=== PATIENT | male | born 1970 | race Caucasian/White ===

== ENCOUNTER 2022-08-18 11:45 | Outpatient (CLI) | payer BC, SELFPAY | END 2022-08-18 11:46 | disposition home or self-care (01) | PROVIDERS: PCP Family Medicine; Visit Provider Internal Medicine | DX: Z12.11 Encounter for screening for malignant neoplasm of colon (principal); K64.8 Other hemorrhoids; K57.30 Diverticulosis of large intestine without perforation or abscess without bleeding | CPT/HCPCS: 45378; J2250; J3010 ==

== ENCOUNTER 2023-02-23 23:02 | Emergency (ER) | payer BC, SELFPAY ==
[2023-02-23 23:09] VITALS: BP 163/84; PULSE 73; RESP 20; TEMP 35.6; O2SAT 98; BMI 34.2
--- NOTE | 2023-02-23 23:11 | CRLHL7_ITS ---
For Patients: As a result of the Century Cures Act, medical imaging exams and procedure reports are released immediately into your electronic medical record. You may view this report before your referring provider. If you have questions, please contact your health care provider. INDICATION: Fall, altered mental status. TECHNIQUE: CT head without contrast. Permanently recorded images are archived. COMPARISON: Head CT 04/23/2019. FINDINGS: Interval postsurgical changes prior right frontal craniotomy. 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 Right parietal kitty hole. No acute intracranial hemorrhage, mass effect, or midline shift. The frankel-white matter differentiation is maintained. No abnormal extra-axial fluid collection. Thinning of the ocular lenses bilaterally. The paranasal sinuses and mastoid air cells are clear. No acute skull fracture. IMPRESSION: No evidence of an acute intracranial abnormality. Please note that all CT scans at this facility use dose modulation, iterative reconstruction, and/or weight-based dosing when appropriate to reduce radiation dose to as low as reasonably achievable. Dictated by Ignacio Quan MD @ 02/23/2023 11:58:57 PM (Electronically Signed)
--- NOTE | 2023-02-23 23:11 | CRLHL7_ITS ---
For Patients: As a result of the Cures Act, medical imaging exams and procedure reports are released immediately into your electronic medical record. You may view this report before your referring provider. If you have questions, please contact your health care provider. INDICATION: Fall. TECHNIQUE: CT cervical spine without contrast. COMPARISON: None. FINDINGS: Vertebrae: Straightening of the cervical lordosis. There are no fractures or suspicious bony lesions. Discs and facet joints: Mild degenerative disc changes at C6-7. The facet joints are unremarkable. Extraspinal findings: Prevertebral soft tissues, visualized airway, and visualized lungs are unremarkable. IMPRESSION: Straightening of the cervical lordosis. No acute bony abnormality Please note that all CT scans at this facility use dose modulation, iterative reconstruction, and/or weight-based dosing when appropriate to reduce radiation dose to as low as reasonably achievable. Dictated by Ignacio Quan MD @ 02/24/2023 12:01:42 AM (Electronically Signed)
[2023-02-23 23:25] LABS: Basophils Absolute Auto 0.04 K/uL (0.00-0.30); Basophils Percent Auto 0.5 % (0.0-3.0); Eosinophils Absolute Auto 0.34 K/uL (0.00-0.50); Eosinophils Percent Auto 3.9 % (0.0-7.0); Hematocrit 45.1 % (37.0-53.0); Hemoglobin* 14.3 gm/dL (13.5-17.5); Immature Granulocytes Abs Auto 0.04 K/uL (0.00-0.30); Immature Granulocytes Pct Auto 0.5 %; Lymphocytes Absolute Auto 3.43 K/uL (0.90-2.90); Lymphocytes Percent Auto 39.8 % (20-44); Mean Corpuscular HGB Conc 32 gm/dL (32-36); Mean Corpuscular Hemoglobin 26 pg (26-34); Mean Corpuscular Volume 83 fL (80-100); Monocytes Percent Auto 5.9 % (0.0-11.0); Neutrophils Absolute Auto 4.25 K/uL (1.7-7.0); Neutrophils Percent Auto 49.4 % (42.0-72.0); Platelet Count* 256 K/uL (140-440); RDW Coefficient of Variation % 14.4 % (11.5-15.5); Red Blood Count 5.43 m/uL (4.30-5.90); White Blood Count* 8.61 K/uL (4.50-11.00)
[2023-02-23 23:27] LABS: Slide Review Reflex No
--- OUTSIDE RECORDS SUMMARY | 2023-02-23 23:31 | XMS_ITS | Continuity of Care Document ---
Author Name Unknown Organization [facility] Address [address] [address] [place] [address] Phone Care Team Providers Care Fraud Analyst Name Role Phone Daryn HERMAN, Emma Unavailable [...] on Encounter Subsqt Hosp-da E&m Minr Compl [facility], [address] [address], [place], [place], [id number], [place] tel:[phone] [facility] No Information 0 Daryn Carter. [address] [place] [address], [id number] , [place]. tel:[phone] Referring Provider: Shun Byrnes, [address] [place], [address]. tel:[phone] [facility] [place], [address] [address], [place], [place], [id number], [place] tel:[phone] [facility] No Information 0 Anastacia Ugarte. [address] [place] [address], [id number] , [place]. [phone] Referring Provider: Shun Byrnes, [address] [place], [address]. tel:[phone] Init Inpt Cons New/est Mod-hi [facility], [address] [address], [place], [place], [id number], [place] tel:[phone] [facility] No Information 0 Ama Mendez . [address] [facility], [facility] [address], [place], [place], [id number] , [place]. tel:[phone] Referring Provider: Shun Blum MD C, [address] , [place], [address]. tel:[phone] Family History Family Member Type Diagnosis Age At Onset No Information Payers Payer name Insurance type Covered alliance party ID Authormariannea margotleticia(s) Blue Cross [facility] [id number] Social History Type Description Quantity Date Captured [...]
[2023-02-23 23:32] VITALS: PULSE 63; O2SAT 96
[2023-02-23 23:42] LABS: Acetaminophen* < 10.0 ug/mL (10.0-30.0); Ethanol* < 0.01 % (0.01-0.03); Salicylate* < 1.0 mg/dL (1.0-10)
[2023-02-23 23:45] VITALS: PULSE 60; O2SAT 97
[2023-02-24] VITALS (8 sets, daily range): BP systolic 127; BP diastolic 90; PULSE 54–63; RESP 18; TEMP 36.1; O2SAT 94–98
[2023-02-24 00:17] LABS: Albumin* 4.1 g/dL (3.3-5.0); Chloride* 106 mmol/L (96-114); Potassium* 3.4 mmol/L (3.6-5.1); Sodium* 141 mmol/L (135-149)
[2023-02-24 00:20] LABS: Alanine Aminotransferase* 27 U/L (4-50); Alkaline Phosphatase* 36 U/L (40-150); Aspartate Amino Transferase* 31 U/L (12-35); Bilirubin Total* 1.2 mg/dL (0.1-1.5); Blood Urea Nitrogen* 8 mg/dL (7-30); Carbon Dioxide* 26 mmol/L (20-32); Creatinine* 1.3 mg/dL (0.5-1.5); Est. Creatinine Clearance* 81.61; Estimated Glomerular Filt Rate 66 ml/min; Glucose* 132 mg/dL (60-115); Total Protein* 6.9 g/dL (6.0-8.3)
[2023-02-24] MEDS: KETOROLAC 30 MG/ML inj IVP (00:20)
[2023-02-24] MEDS: 0.9 % SODIUM CHLORIDE 1000 ml 1,000 ML IV (00:20)
[2023-02-24 00:21] LABS: Calcium* 8.5 mg/dL (8.4-10.6)
--- NOTE | 2023-02-24 00:25 | ED.AMS ---
HPI - Altered Mental Status General Chief Complaint: Altered Mental Status Stated Complaint: Altered Mental Status Time Seen by Provider: 02/23/23 23:04 History of Present Illness HPI narrative: Patient is a 52-year-old gentleman with history of pituitary resection with cerebral shunt placement now removed who presents with acute delirium. Patient who has had a similar episode last year [facility] the [facility] today with his . 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 He seemed to be walking around without any difficulty or focal neurologic symptoms but did not seem to know who any but he was. He seemed very frightened by this and she called for an ambulance. Patient was found have no focal neurologic symptoms by EMS was brought in with extreme confusion. The confusion has largely resolved but the patient is left with a bitemporal headache which is 6/10 and dull. He has had no nausea no vomiting no fevers no chills he has not been drinking alcohol using any drugs. He has no other significant symptoms. Related Data Previous Rx's Medication Instructions Recorded desmopressin 0.1 mg tablet 0.05 mg (1/2 x 0.1 mg) PO .HS #45 07/18/22 tabs hydrocortisone 10 mg tablet See Rx Instructions PO .ud #270 07/18/22 tabs levothyroxine 137 mcg tablet 137 mcg PO QDAY #90 tabs 07/18/22 testosterone cypionate 200 mg/mL 150 mg (0.75 mL) IM Q2W #6 mL 07/18/22 intramuscular oil topiramate 25 mg tablet 25 mg PO BID #180 tabs 07/18/22 trazodone 50 mg tablet 50 mg PO QHS PRN insomnia #30 tabs 07/18/22 Allergies Allergy/AdvReac Type Severity Reaction Status Date / Time sumatriptan [From Imitrex] Allergy Severe horribly Verified 11/07/22 13:08 sick Review of Systems Status of ROS: Reports: 10 or more systems reviewed and unremarkable except as noted in History and below [facility] Medical History Hypertension ?I10 - Essential (primary) hypertension (ICD-10) Surgical History S/P rotator cuff surgery ?Z98.890 - Other specified postprocedural states (ICD-10) S/P [facility] shunt ?Z98.2 - Presence of cerebrospinal fluid drainage device (ICD-10) S/P cholecystectomy ?Z90.49 - Acquired absence of other specified parts of digestive tract (ICD-10) S/P cataract extraction ?Z98.49 - Cataract extraction status, unspecified eye (ICD-10) 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 EYES: No scleral icterus. LYMPH: No supraclavicular or cervical lymphadenopathy. SKIN: Visible skin seen during exam normal or with benign process only. EXT: No dependent lower extremity pedal edema. HEART: Regular rate and rhythm with no murmurs, rubs, or gallops. LUNGS: Clear to auscultation bilaterally with no crackles or wheezes. ABD: Soft, non tender, non distended. PSYCH: Good eye contact, speech is not pressured. Neurologic cranial nerves 2-12 grossly intact. Patient appears to be completely oriented at this time. Const: Vital Signs, click to edit/add: Vital Signs - 24 hr 02/23/23 23:09 02/23/23 23:32 02/23/23 23:45 Temperature 96.0 F L Pulse Rate 63 60 Pulse Rate [Left P ulse Oximeter] 73 Respiratory Rate 20 Blood Pressure [Le ft Upper Arm] 163/84 H Pulse Oximetry 98 96 97 Oxygen Delivery Me thod Room Air Room Air 02/24/23 00:00 02/24/23 00:15 02/24/23 00:30 Temperature Pulse Rate 63 61 Pulse Rate [Left P ulse Oximeter] Respiratory Rate Blood Pressure [Le ft Upper Arm] Pulse Oximetry 94 97 98 Oxygen Delivery Me thod 02/24/23 00:46 02/24/23 01:00 02/24/23 01:15 Temperature Pulse Rate 60 54 L 55 L Pulse Rate [Left P ulse Oximeter] Respiratory Rate Blood Pressure [Le ft Upper Arm] Pulse Oximetry 98 98 96 Oxygen Delivery Me thod Course Course Hospital Course: Patient seen and examined. CT of the head and neck done acutely showed no changes injuries or bleeding othe than previous surgical changes. CBC CMP UA Tylenol level salicylate level drug screen ETOH pending Vital Signs Vital signs: Initial Vital Signs Temperature 96.0 F L 02/23/23 23:09 Temperature Source Temporal Artery Scan 02/23/23 23:09 Pulse Rate 73 02/23/23 23:09 Respiratory Rate 20 02/23/23 23:09 Blood Pressure 163/84 H 02/23/23 23:09 Blood Pressure Mean 110 H 02/23/23 23:09 Blood Pressure Position Semi-Fowlers 02/23/23 23:09 Pulse Oximetry 98 02/23/23 23:09 Oxygen Delivery Method Room Air 02/23/23 23:09 Vital Signs Temperature 96.0 F L 02/23/23 23:09 Pulse Rate 73 02/23/23 23:09 Respiratory Rate 20 02/23/23 23:09 Blood Pressure 163/84 H 02/23/23 23:09 Pulse Oximetry 98 02/23/23 23:09 Oxygen Delivery Method Room Air 02/23/23 23:09 Temperature 96.0 F L 02/23/23 23:09 Pulse Rate 55 L 02/24/23 01:15 Respiratory Rate 20 02/23/23 23:09 Blood Pressure 163/84 H 02/23/23 23:09 Pulse Oximetry 96 02/24/23 01:15 Oxygen Delivery Method Room Air 02/23/23 23:32 MDM - Altered Mental Status MDM Narrative Medical decision making narrative: Patient is a 52-year-old gentleman who is status post a craniotomy in the past who presents with an acute delirium. This is not 1st time this has happened. Patient had a thorough workup in the emergency room including CT of the head and cervical spine drug toxicology Tylenol level salicylate level ETOH comprehensive metabolic panel UA CBC. He had no focal neurologic defects other than the confusion and his symptoms have resolved. At this time I have elected to release him the care of his is he is back to near normal. I did treated with normal saline and Toradol for his headache he shows no signs of meningitis. I did recommend the follow-up with his primary physician continued follow-up with his neurologist closely. Differential Diagnosis Differential diagnosis: Likely alcoholic intoxication, altered mental status, delirium, dementia, hypoglycemia, hyponatremia, subarachnoid hemorrhage and sepsis Lab Data Labs: Lab Results 02/23/23 02/23/23 Range/Units 01:11 23:11 WBC 8.61 (4.50-11.00) K/uL RBC 5.43 (4.30-5.90) m/uL Hgb 14.3 (13.5-17.5) gm/dL Hct 45.1 (37.0-53.0) % MCV 83 (80-100) fL MCH 26 (26-34) pg MCHC 32 (32-36) gm/dL RDW Coeff of [place] 14.4 (11.5-15.5) % Plt Count 256 (140-440) K/uL Neut % (Auto) 49.4 (42.0-72.0) % Lymph % (Auto) 39.8 (20-44) % [place] % (Auto) 5.9 (0.0-11.0) % Eos % (Auto) 3.9 (0.0-7.0) % Baso % (Auto) 0.5 (0.0-3.0) % Neut # (Auto) 4.25 (1.7-7.0) K/uL Lymph # (Auto) 3.43 H (0.90-2.90) K/uL [place] # (Auto) 0.50 (0.00-0.90) K/UL Eos # (Auto) 0.34 (0.00-0.50) K/uL Baso # (Auto) 0.04 (0.00-0.30) K/uL Abs Immat Gran (auto) 0.04 (0.00-0.30) K/uL Imm/Tot Granulo (auto) 0.5 % Sodium 141 (135-149) mmol/L Potassium 3.4 L (3.6-5.1) mmol/L Chloride 106 (96-114) mmol/L Carbon Dioxide 26 (20-32) mmol/L BUN 8 (7-30) mg/dL Creatinine 1.3 (0.5-1.5) mg/dL Estimated Creat Clear 81.61 Estimated GFR 66 ml/min Glucose 132 H (60-115) mg/dL Calcium 8.5 (8.4-10.6) mg/dL Total Bilirubin 1.2 (0.1-1.5) mg/dL AST 31 (12-35) U/L ALT 27 (4-50) U/L Alkaline Phosphatase 36 L (40-150) U/L Total Protein 6.9 (6.0-8.3) g/dL Albumin 4.1 (3.3-5.0) g/dL Urine Color Yellow (Yellow) Urine Appearance Clear (Clear) Urine pH 5.5 (5.0-8.5) Ur Specific [place] 1.025 (1.000-1.030) Urine Protein Negative (Negative) Urine Glucose (UA) Negative (Negative) Urine Ketones Negative (Negative) Urine Blood Negative (Negative) Urine Nitrite Negative (Negative) Urine Bilirubin Negative (Negative) Urine Urobilinogen 0.2 (0.2-1.0) Ur Leukocyte Esterase Negative (Negative) Salicylates < 1.0 L (1.0-10) mg/dL Urine Opiates Screen Negative (Negative) Ur Oxycodone Screen Negative (Negative) Urine Methadone Screen Negative (Negative) Ur Propoxyphene Screen Negative (Negative) Acetaminophen < 10.0 L (10.0-30.0) ug/mL Ur Barbiturates Screen Negative (Negative) U Tricyclic Antidepress Negative (Negative) Ur Phencyclidine Scrn Negative (Negative) Ur Amphetamines Screen Negative (Negative) U Methamphetamines Scrn Negative (Negative) U Benzodiazepines Scrn Negative (Negative) Urine Cocaine Screen Negative (Negative) U Marijuana (THC) Screen Negative (Negative) Ur Drug Screen Comment See Note Ethyl Alcohol < 0.01 L (0.01-0.03) % Discharge Plan Discharge Clinical Impression: Acute delirium Patient Disposition: Home w/ Parent or Adult Condition: Stable Instructions: Acute Delirium (ED) Additional Instructions: Continue current medications Follow-up with PCP and Neurology to further investigate symptoms. Activity Level: No Restrictions Discharge Diet: Regular Prescriptions: No Action testosterone cypionate 200 mg/mL oil 150 mg IM Q2W Qty: 6 5RF Rx Instructions: 0.75 mL Q2WKS hydrocortisone 10 mg tablet See Rx Instructions PO .ud Qty: 270 3RF Rx Instructions: 2 TABS PO QAM 1 TAB IN THE AFTERNOON desmopressin 0.1 mg tablet 0.05 mg PO .HS Qty: 45 3RF levothyroxine 137 mcg tablet 137 mcg PO QDAY Qty: 90 3RF topiramate 25 mg tablet 25 mg PO BID Qty: 180 3RF trazodone 50 mg tablet 50 mg PO QHS PRN (Reason: insomnia) Qty: 30 2RF Follow Up/Referrals: [place] Blum MD [Primary Care Provider] - Stand Alone Forms: [employer] Info Instructions
[2023-02-24 01:16] LABS: Appearance Urine Clear (Clear); Bilirubin Urine Negative (Negative); Blood Urine Negative (Negative); Color Urine Yellow (Yellow); Glucose Urine Negative (Negative); Ketones Urine Negative (Negative); Leukocyte Esterase Urine Negative (Negative); Nitrite Urine Negative (Negative); Protein Urine Negative (Negative); Specific Gravity Urine 1.025 (1.000-1.030); Urobilinogen Urine 0.2 (0.2-1.0); pH Urine 5.5 (5.0-8.5)
[2023-02-24 01:27] LABS: Amphetamine Screen Urine Negative (Negative); Barbiturate Screen Urine Negative (Negative); Benzodiazepines Screen Urine Negative (Negative); Cannabinoid Screen Urine Negative (Negative); Cocaine Screen Urine Negative (Negative); Methadone Screen Urine Negative (Negative); Methamphetamines Screen Urine Negative (Negative); Opiate Screen Urine Negative (Negative); Oxycodone Screen Urine Negative (Negative); Phencyclidine Screen Urine Negative (Negative); Tricyclic Antidepressant Urine Negative (Negative)
--- NOTE | 2023-02-24 01:53 | PC.NURSE ---
patient DC accompanied by , stated understanding to DC instruction with no further questions
== END 2023-02-24 01:53 | disposition home or self-care (01) ==
PROVIDERS: Emergency Provider Internal Medicine; PCP Family Medicine
DX: R41.0 Disorientation, unspecified (principal)
CPT/HCPCS: 36415; 70450; 72125; 80053; 80143; 80179; 80306; 81003; 82077; 85025; 96374; 99283; 99284; 99285; J1885; J7030

== ENCOUNTER 2023-02-28 13:37 | Outpatient (CLI) | payer BC, SELFPAY | END 2023-02-28 13:38 | disposition home or self-care (01) | PROVIDERS: PCP Family Medicine; Visit Provider Family Medicine | DX: R51.9 Headache, unspecified (principal); M25.50 Pain in unspecified joint; E03.9 Hypothyroidism, unspecified; G89.29 Other chronic pain | CPT/HCPCS: 85651; 86039; 86140; 86431; 86618 ==

== ENCOUNTER 2024-07-29 19:56 | Emergency (ER) | payer BC, SELFPAY ==
[2024-07-29 19:58] VITALS: BP 117/68; PULSE 136; RESP 16; TEMP 36.9; O2SAT 83; O2SAT 98; BMI 31.6
--- NOTE | 2024-07-29 20:21 | ED_ITS ---
HPI - General Adult General Chief complaint: Headache/Migraine Stated complaint: Migraine, body aches/pain Time Seen by Provider: 07/29/24 20:16 History of Present Illness HPI narrative: headache starting yesterday, hx of severe headaches in the past. also has body aches, denies known sick contacts. hx of stroke seen on an MRI 2019 but was unaware, not on any blood thinners. hx of brain surgery in the past on pituitary tumor . states last time he felt no symptoms was 2 days ago. moves all extremities equally. states feeling generalized weakness. also has a cough and nausea. 53-year-old man presenting to the emergency department with concern of headache. Underlying history of pituitary adenoma with extension and 7 surgeries to deal with related problems. Does get regular headaches. This 1 is more intense. He is also feeling achy all over noting particularly variety of joints. Did have a fall yesterday and has some left hip pain but has been able to ambulate. Last head imaging was May of this year. He did have EEG testing done 2 weeks ago. Reports that earlier today tried his rizatriptan without relief. Headache is been present now about 2 days in the ?frontal lobes?. Other than intensity symptoms are consistent with usual headaches. On initial conversation he does not feel that he would need any imaging otherwise. Has had some cough. He feels nauseated. Typically would go to [facility] for migraine cocktail as they note. Sounds like this includes morphine and ketorolac and sometimes diphenhydramine.. Related Data Home Medications ?Medication ?Instructions ?Recorded ?Confirmed prednisone 20 mg tablet 20 mg PO QDAY 04/24/23 07/29/24 rizatriptan 10 mg tablet mg PO 07/29/24 Previous Rx's ?Medication ?Instructions ?Recorded semaglutide 7 mg tablet 7 mg PO QDAY #30 tabs 04/24/23 levothyroxine 137 mcg tablet 137 mcg PO QDAY #90 tabs 09/21/23 testosterone cypionate 200 mg/mL 150 mg (0.75 mL) IM Q2W #6 mL 11/13/23 intramuscular oil hydrocortisone 10 mg tablet See Rx Instructions PO .ud #270 12/28/23 tabs trazodone 50 mg tablet 50 mg PO QHS PRN insomnia #30 tabs 01/30/24 tizanidine 4 mg tablet 4 mg PO QHS PRN muscle spasticity 05/12/24 #30 tabs oseltamivir 75 mg capsule (Tamiflu) 75 mg PO BID 4 days #8 caps 07/29/24 Allergies Allergy/AdvReac Type Severity Reaction Status Date / Time sumatriptan (From Imitrex) Allergy Severe horribly Verified 02/28/23 13:16 sick Review of Systems Status of ROS: Reports: 6 or more systems reviewed and unremarkable except as noted in History and below [facility] Medical History Hypertension ?I10 - Essential (primary) hypertension (ICD-10) Surgical History 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) S/P rotator cuff surgery ?Z98.890 - Other specified postprocedural states (ICD-10) S/P [employer] shunt ?Z98.2 - Presence of cerebrospinal fluid drainage device (ICD-10) S/P cholecystectomy ?Z90.49 - Acquired absence of other specified parts of digestive tract (ICD- 10) S/P cataract extraction ?Z98.49 - Cataract extraction status, unspecified eye (ICD-10) Family History Other Diabetes Pancreatic cancer Prostate cancer Social History Smoking Status: Never smoker Do you use any of these nicotine containing products: None Second hand tobacco smoke exposure: No How often do you have a drink containing alcohol: 2-4 times a month How often do you have six or more drinks on one occasion: Never AUDIT-C Alcohol total score: 2 Non-prescribed substance use: denies use service: No Exam Narrative: Exam Narrative: Pleasant. Seems a little uncomfortable; sensitive a little to light. In a head with postoperative scars most notable in the right parietal area. Cranial nerves 2-12 look to be intact. Pupils are 3 mm and equal and appropriately reactive. Moving all extremities without apparent difficulty. Fluidly. Well- perfused. Speaking fluidly. Oropharynx looks a little sticky. Is breathing easily. Heart in elevated rate and regular rhythm. Distant. Const: Vital Signs, click to edit/add: Vital Signs - 24 hr 07/29/24 19:58 07/29/24 19:58 07/29/24 21:00 Temperature 98.4 F Pulse Rate [Pulse Oximeter] 136 H Respiratory Rate 16 Blood Pressure [Ri ght Upper Arm] 117/68 Pulse Oximetry 98 83 L 83 L Oxygen Delivery Me thod Room Air Room Air 07/29/24 23:12 07/29/24 23:14 07/29/24 23:19 Temperature 98.4 F 98.4 F 98.4 F Pulse Rate [Pulse Oximeter] 89 89 Respiratory Rate 16 16 Blood Pressure [Ri ght Upper Arm] 124/74 124/74 Pulse Oximetry 94 Oxygen Delivery Me thod Room Air Documenting provider has reviewed patient's vital signs: yes Course Vital Signs Vital signs: Initial Vital Signs Temperature 98.4 F 07/29/24 19:58 Temperature Source Oral 07/29/24 19:58 Pulse Rate 136 H 07/29/24 19:58 Respiratory Rate 16 07/29/24 19:58 Blood Pressure 117/68 07/29/24 19:58 Blood Pressure Mean 84 07/29/24 19:58 Blood Pressure Position Sitting 07/29/24 19:58 Pulse Oximetry 98 07/29/24 19:58 Oxygen Delivery Method Room Air 07/29/24 19:58 Vital Signs Temperature 98.4 F 07/29/24 19:58 Pulse Rate 136 H 07/29/24 19:58 Respiratory Rate 16 07/29/24 19:58 Blood Pressure 117/68 07/29/24 19:58 Pulse Oximetry 98 07/29/24 19:58 Oxygen Delivery Method Room Air 07/29/24 19:58 Temperature 98.4 F 07/29/24 23:19 Pulse Rate 89 07/29/24 23:19 Respiratory Rate 16 07/29/24 23:19 Blood Pressure 124/74 07/29/24 23:19 Pulse Oximetry 94 07/29/24 23:12 Oxygen Delivery Method Room Air 07/29/24 23:12 Medications Administered Medications: Discontinued Medications Generic Name Dose Route Start Last Admin Trade Name Freq PRN Reason Stop Dose Admin Diphenhydramine HCl 25 mg 07/29/24 20:32 07/29/24 20:45 Diphenhydramine 50 Mg/Ml Inj IVP 07/29/24 20:33 25 mg ONCE ONE Administration Sodium Chloride 1,000 mls @ 1,000 mls/hr 07/29/24 20:32 07/29/24 22:17 0.9 % Sodium Chloride 1000 Ml IV 07/29/24 21:31 Infused .Q1H ONE Infusion Ketorolac Tromethamine 30 mg 07/29/24 20:32 07/29/24 20:45 Ketorolac 30 Mg/Ml Inj IVP 07/29/24 20:33 30 mg ONCE ONE Administration Morphine Sulfate 4 mg 07/29/24 20:32 07/29/24 20:45 Morphine 4 Mg/Ml Inj IVP 07/29/24 20:33 4 mg ONCE ONE Administration Ondansetron HCl 4 mg 07/29/24 20:32 07/29/24 20:45 Ondansetron 2 Mg/Ml Inj IVP 07/29/24 20:33 4 mg ONCE ONE Administration Oseltamivir Phosphate 75 mg 07/29/24 22:47 07/29/24 22:55 Oseltamivir Phosphate 75 Mg Capsule PO 07/29/24 22:48 75 mg ONCE ONE Administration Oseltamivir Phosphate 75 mg 07/29/24 22:49 07/29/24 23:14 Oseltamivir Phosphate 75 Mg Capsule PO 07/29/24 22:50 Not Given ONCE ONE Oseltamivir Phosphate 75 mg 07/29/24 22:50 07/29/24 23:14 Oseltamivir Phosphate 75 Mg Capsule PO 07/29/24 22:51 Not Given ONCE ONE Medical Decision Making MDM Narrative Medical decision making narrative: He does not feel that imaging would be necessary at this point. He does describe a familiar headache. Will treat accordingly and screen though for possible secondary viral etiology. He seems to be describing some myalgias and arthralgia. Does not appear to be otherwise demonstrating meningeal signs. Did not have a fever. Reviewing records shows a history of diffuse arthralgias of unclear etiology. Nurse's note seems little out of it following my conversation with him. Morphine has also cause some respiratory depression. Placed on non-rebreather. Further conversation with spouse says that he had a as fall last night. Suspected syncopal event though not clear that he did actually pass out. This though is similar to presenting symptoms with pituitary mass and secondary hydrocephalus. Will add to labs and CT head though I think more likely explanation for entirety of symptoms here is still of viral etiology. CT head independently reviewed by me does not appear to show excessive ventricular size/fullness. Radiology over-read below Technique: Noncontrast CT through the head with multiplanar reformats Comparison: CT head performed 02/23/2023 and 04/23/2019 Findings: Brain: No acute hemorrhage. No acute infarct. No significant mass effect or midline shift. No gross evidence of a mass lesion or cerebral edema. Right frontotemporal gliosis. Mild chronic microvascular ischemic disease. Ventricles: Unremarkable. Ventricular caliber is similar to prior examination. Orbits, sinuses, mastoids: No acute abnormality appreciated. Calvarium and soft tissues: Postoperative changes with no acute abnormality appreciated. Impression: Chronic gliosis and postoperative calvarial changes with acute intracranial abnormality appreciated. Ventricular caliber appears similar to examination dated 02/23/2023. Labs notable than for positive influenza a. I think this is consistent with symptoms With comorbidities, history, discussed potential benefit of Tamiflu. Given initial dosing here in the emergency department. See patient discharge plan for further discussion Focus on hydration. Can take up to 800 mg of ibuprofen or up to 1000 mg of acetaminophen per dose. You are receiving a dose of Tamiflu before you leave. Take another dose starting tomorrow morning -- providing you with 2 pills because pharmacies are closed. Take the 3rd dose tomorrow evening. Medical Records Medical records reviewed: Yes I reviewed the patient's medical records Lab Data Labs: Lab Results 07/29/24 07/29/24 Range/Units 20:14 20:40 WBC 3.64 L (4.50-11.00) K/uL RBC 5.29 (4.30-5.90) m/uL Hgb 14.7 (13.5-17.5) gm/dL Hct 44.7 (37.0-53.0) % MCV 85 (80-100) fL MCH 28 (26-34) pg MCHC 33 (32-36) gm/dL RDW Coeff of [place] 14.0 (11.5-15.5) % Plt Count 183 (140-440) K/uL Neut % (Auto) 58.0 (42.0-72.0) % Lymph % (Auto) 30.5 (20-44) % [place] % (Auto) 9.9 (0.0-11.0) % Eos % (Auto) 1.1 (0.0-7.0) % Baso % (Auto) 0.5 (0.0-3.0) % Neut # (Auto) 2.10 (1.7-7.0) K/uL Lymph # (Auto) 1.10 (0.90-2.90) K/uL [place] # (Auto) 0.40 (0.00-0.90) K/UL Eos # (Auto) 0.00 (0.00-0.50) K/uL Baso # (Auto) 0.00 (0.00-0.30) K/uL Abs Immat Gran (auto) 0.00 (0.00-0.30) K/uL Imm/Tot Granulo (auto) 0.0 % Sodium 136 (135-149) mmol/L Potassium 3.1 L (3.6-5.1) mmol/L Chloride 105 (96-114) mmol/L Carbon Dioxide 23 (20-32) mmol/L Anion Gap 8 (7-15) mEq/L BUN 15 (7-30) mg/dL Creatinine 1.3 (0.5-1.5) mg/dL Estimated Creat Clear 80.68 Estimated GFR 66 ml/min Glucose 121 H (60-115) mg/dL Calcium 8.5 (8.4-10.6) mg/dL SARS-CoV-2 (PCR) Negative SARS-CoV-2 (Negative) Influenza Type A (PCR) POSITIVE PCR FLU A A (Negative) Influenza Type B (PCR) Negative PCR FLU B (Negative) RSV (PCR) Negative PCR RSV (Negative) ECG Data Attestation: I personally reviewed and interpreted this ECG as follows: (Sinus tachycardia 109) Discharge Plan Discharge Clinical Impression: Influenza A, Headache, Polyarthralgia Patient Disposition: Home w/ Parent or Adult Condition: Improved Additional Instructions: Focus on hydration. Can take up to 800 mg of ibuprofen or up to 1000 mg of acetaminophen per dose. You are receiving a dose of Tamiflu before you leave. Take another dose starting tomorrow morning -- providing you with 2 pills because pharmacies are closed. Take the 3rd dose tomorrow evening. Prescriptions: New oseltamivir [Tamiflu] 75 mg capsule 75 mg PO BID 4 Days Qty: 8 0RF No Action prednisone 20 mg tablet 20 mg PO QDAY semaglutide 7 mg tablet 7 mg PO QDAY Qty: 30 2RF rizatriptan 10 mg tablet PO levothyroxine 137 mcg tablet 137 mcg PO QDAY Qty: 90 3RF testosterone cypionate 200 mg/mL oil 150 mg IM Q2W Qty: 6 5RF Rx Instructions: 0.75 mL Q2WKS hydrocortisone 10 mg tablet See Rx Instructions PO .ud Qty: 270 2RF Rx Instructions: 2 TABS PO QAM 1 TAB IN THE AFTERNOON trazodone 50 mg tablet 50 mg PO QHS PRN (Reason: insomnia) Qty: 30 2RF tizanidine 4 mg tablet 4 mg PO QHS PRN (Reason: muscle spasticity) Qty: 30 2RF Follow Up/Referrals: Salinas Blum MD [Primary Care Provider] - Stand Alone Forms: MyHealth Info Instructions
[2024-07-29] MEDS: 0.9 % SODIUM CHLORIDE 1000 ml 1,000 ML IV (20:43)
[2024-07-29] MEDS: KETOROLAC 30 MG/ML inj IVP (20:45)
[2024-07-29] MEDS: ONDANSETRON 2 MG/ML inj 4 MG IVP (20:45)
[2024-07-29] MEDS: MORPHINE 4 MG/ML INJ IVP (20:45)
[2024-07-29] MEDS: diphenhydrAMINE 50 MG/ML inj 25 MG IVP (20:45)
[2024-07-29 21:00] VITALS: O2SAT 83
[2024-07-29 21:14] LABS: PCR FLU A POSITIVE PCR FLU A (Negative); PCR FLU B Negative PCR FLU B (Negative); PCR RSV Negative PCR RSV (Negative); SARS PCR* Negative SARS-CoV-2 (Negative)
--- NOTE | 2024-07-29 21:15 | CRLHL7_ITS ---
For Patients: As a result of the Cures Act, medical imaging exams and procedure reports are released immediately into your electronic medical record. You may view this report before your referring provider. If you have questions, please contact your health care provider. Indication: Headache Technique: Noncontrast CT through the head with multiplanar reformats Comparison: CT head performed 02/23/2023 and 04/23/2019 Findings: Brain: No acute hemorrhage. No acute infarct. No significant mass effect or midline shift. No gross evidence of a mass lesion or cerebral edema. Right frontotemporal gliosis. Mild chronic microvascular ischemic disease. Ventricles: Unremarkable. Ventricular caliber is similar to prior examination. Orbits, sinuses, mastoids: No acute abnormality appreciated. Calvarium and soft tissues: Postoperative changes with no acute abnormality appreciated. Impression: Chronic gliosis and postoperative calvarial changes with acute intracranial abnormality appreciated. Ventricular caliber appears similar to examination dated 02/23/2023. Please note that all CT scans at this facility use dose modulation, iterative reconstruction, and/or weight-based dosing when appropriate to reduce radiation dose to as low as reasonably achievable. Dictated by Alexander Escamilla MD @ 07/29/2024 10:20:53 PM (Electronically Signed)
[2024-07-29 21:27] LABS: Basophils Percent Auto 0.5 % (0.0-3.0); Eosinophils Percent Auto 1.1 % (0.0-7.0); Hematocrit 44.7 % (37.0-53.0); Hemoglobin* 14.7 gm/dL (13.5-17.5); Lymphocytes Percent Auto 30.5 % (20-44); Mean Corpuscular HGB Conc 33 gm/dL (32-36); Mean Corpuscular Hemoglobin 28 pg (26-34); Mean Corpuscular Volume 85 fL (80-100); Monocytes Percent Auto 9.9 % (0.0-11.0); Platelet Count* 183 K/uL (140-440); Red Blood Count 5.29 m/uL (4.30-5.90); White Blood Count* 3.64 K/uL (4.50-11.00)
[2024-07-29 21:40] LABS: Slide Review Reflex No
[2024-07-29 21:42] LABS: Chloride* 105 mmol/L (96-114); Potassium* 3.1 mmol/L (3.6-5.1); Sodium* 136 mmol/L (135-149)
[2024-07-29 21:45] LABS: Anion Gap 8 mEq/L (7-15); Blood Urea Nitrogen* 15 mg/dL (7-30); Carbon Dioxide* 23 mmol/L (20-32); Creatinine* 1.3 mg/dL (0.5-1.5); Est. Creatinine Clearance* 80.68; Estimated Glomerular Filt Rate 66 ml/min; Glucose* 121 mg/dL (60-115)
[2024-07-29 21:46] LABS: Calcium* 8.5 mg/dL (8.4-10.6)
[2024-07-29] MEDS: OSELTAMIVIR PHOSPHATE 75 MG CAPSULE PO (22:55)
[2024-07-29 23:12] VITALS: BP 124/74; PULSE 89; RESP 16; TEMP 36.9; O2SAT 94
[2024-07-29 23:14] VITALS: TEMP 36.9
[2024-07-29 23:19] VITALS: BP 124/74; PULSE 89; RESP 16; TEMP 36.9
== END 2024-07-29 23:19 | disposition home or self-care (01) ==
PROVIDERS: Emergency Provider Family Medicine; PCP Family Medicine
DX: J10.1 Influenza due to other identified influenza virus with other respiratory manifestations (principal); R51.9 Headache, unspecified; M25.50 Pain in unspecified joint
CPT/HCPCS: 36415; 70450; 80048; 85025; 87631; 93005; 94761; 96361; 96374; 96375; 99284; 99285; A9270; J1200; J1885; J2270; J2405; J7030

== ENCOUNTER 2024-11-12 15:26 | Inpatient (IN) | payer MEDICARE, BC, SELFPAY ==
[2024-11-12] VITALS (19 sets, daily range): BP systolic 89–122; BP diastolic 59–82; PULSE 73–140; RESP 15–28; TEMP 36.8–39.1; O2SAT 91–98; BMI 33.5; BMI 32.3
--- OUTSIDE RECORDS SUMMARY | 2024-11-12 15:28 | XMS_ITS | Clinical Summary ---
Author Organization [facility] Address [address] [place] [id number] Care Team Providers Care Survey Supervisor Name Role Phone Salinas Blum MD Primary Care Provider [phone] Robin Martinez MD Unavailable [phone] Allergies Active Allergy Reactions Criticality Noted Date Comments Sulfasalazine Rash,Headache,Other - Describe In Comment Field 09/29/2023 Makes patient groggy Sumatriptan Other - Describe In Comment Field 11/07/2022 Horribly sick Medications acetaminophen SR (TYLENOL ARTHRITIS) 650 mg Extended-Release tablet Take 1 mg by mouth every 6 hours if needed. Max acetaminophen dose: 4000mg in 24 hrs. Active aspirin (ECOTRIN) 81 mg enteric coated tablet Take 81 mg by mouth once daily in the evening. Active melatonin 10 mg tab Take 10 mg by mouth at bedtime if needed. Active diphenhydrAMINE (Benadryl Allergy) 50 mg tablet Take 50 mg by mouth at bedtime if needed. 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 Active pen needle, diabetic (Pen Needle) 31 gauge x 5/16Indications: Growth hormone deficiency (HC) For administering growth hormone shots daily at home. 100 Each 3 01/03/20 24 Active cholecalciferol (VITAMIN D3) 1,000 unit tabletIndications :Hypovitaminosis D Take 1 Tablet (1,000 units) by mouth once daily. 01/29/20 24 Active traZODone (DESYREL) 150 mg tabletIndications :Insomnia, unspecified type Take 1 Tablet (150 mg) by mouth at bedtime. 90 Tablet 4 02/05/20 24 Active levothyroxine (SYNTHROID) 137 mcg tabletIndications :Hypothyroidism, unspecified type Take 1 Tablet (137 mcg) by mouth once daily. 90 Tablet 4 02/05/20 24 Active predniSONE (DELTASONE) 5 mg tabletIndications :Secondary adrenal insufficiency (HC) Take 1 Tablet (5 mg) by mouth once daily. Double dose in acute illness. 120 Tablet 3 03/21/20 24 Active semaglutide, weight loss, (Wegovy) 2.4 mg/0.75 mL subcutaneous penIndications:Ob esity (BMI 30.0-34.9) Inject 2.4 mg subcutaneous once weekly. 4 Pen 3 05/26/20 24 Active somatropin (Norditropin FlexPro) 10 mg/1.5 mL (6.7 mg/mL) penIndications:Gr owth hormone deficiency (HC) INJECT 0.2MG SUBCUTANEOUSLY DAILY (DISCARD 28 DAYS AFTER FIRST USE) 4.5 mL 3 08/11/19 25 Active testosterone cypionate (DEPO-TESTOSTERON E) 200 mg/mL injectionIndicati ons:Secondary male hypogonadism INJECT 0.75 ML (150 MG) INTRAMUSCULAR EVERY 2 WEEKS. EVERY OTHER WEEK 12 mL 3 09/02/19 25 Active Active Problems Problem Noted Date Diagnosed Date Growth hormone deficiency 10/08/2023 Sepsis 09/29/2023 Headache 09/29/2023 Common bile duct calculus 02/26/2020 Overview (02/26/2020): S/p ERCP with stone removal Elevated LFTs 02/22/2020 Secondary adrenal insufficiency 09/01/2019 Vision changes 08/09/2019 S/P craniotomy 08/09/2019 S/P ventriculoperitoneal shunt 05/02/2019 Overview (11/02/2022): 05/02/2019 Medos at 160 mm of water 05/13/2019 Medos at 180 mm of water 08/08/2019 Medos at 140 mm of water (post op, post MRI, decreased due to CSF leak intra op) 08/25/2019 Medos at 170 mm of water 12/22/2019 Medos at 180 mm of water 01/14/2020 Medos at 200 mm of water 11/02/2022 Medos at 150 mm water ( multiple attempts using multiple programmers and use of hand held magnet, unable to program valve to desired setting of 200 mm water, so left at 150 mm ) Obstructive hydrocephalus 04/23/2019 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 ~1 yr interval surveillance. Post ANW MRI 9:30 / 10:00 AM.Compare to 10/18/23 - 04/24/19 ANW MRIs.) 10/16/2024 9:21 AM CDT - 10/16/2024 11:59 PM CDT Hospital Encounter [facility] [address] [place] [address] Ignacio Myers MD Pituitary macroadenoma (HC) 10/16/2024 Travel 09/23/2024 [facility]phone [facility] [address] [place] [phone] Robin Martinez MD INSURANCE (APPOINTMENT CODING) 09/02/2024 Refill [facility] [address] [place] [phone] Robin Martinez MD Refill Request (Testosterone Cypionate) 08/19/2024 Telephone [facility] [address] [place] [phone] Robin Martinez MD Prior Authorization (somatropin (Norditropin FlexPro) 10 mg/1.5 mL (6.7 mg/mL) pen PA NOT NEEDED) from Last 3 Months Immunizations Immunization Administration Dates Next Due DT (Age < 7 years) 03/22/1989 Tdap 02/17/2013 Family History Medical History Relation Name Comments Cancer-pancreatic Father Good Health Mother Relation Name Status Comments Father Mother Alive Social History Tobacco Use Types Packs/Day Years Used Date Smoking Tobacco: Never Smokeless Tobacco: Never Tobacco Cessation:Counseling Given: Yes Alcohol Use Standard Drinks/Week Comments Yes 1 (1 standard drink = 0.6 oz pur e alcohol) 1-2x a month PHQ-2 Answer Date Recorded PHQ-2 TOTAL SCORE 0 02/13/2020 Social Connections Answer Date Recorded Do you often feel lonely or isolated from those around you? 0 09/29/2023 Financial Resource Strain Answer Date R ecorded Difficulty of Paying Living Expenses 3 09/29/2023 Difficulty of Paying Living Expenses Not on file 09/29/2023 Food Insecurity Answer Date Recorded Do you worry your food will run out before you are able to buy more? 1 09/29/2023 Transportation Needs Answer Date Record ed Does lack of transportation keep you from medica l appointments? 1 09/29/2023 Does lack of transportation keep you from work, meetings or getting things that you need? 1 09/29/2023 Housing Stability Answer Date Recorded What is your housing situation today? 1 09/29/2023 Interpersonal Safety Answer Date Record ed Are you being hit, kicked, p ushed or yelled at (see row info)? Unable to assess, family/SO in room. 05/13/2024 Interpersonal Safety Abuse 12 - 18 Not on file 05/13/2024 Interpersonal Safety Ambulat ory Vulnerability Not on file 05/13/2024 Utilities Answer Date Recorded Do you have trouble paying f or utilities (for example, heat, electricity, water, phone)? 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 [employer] Not on file Not on file Not on file Obstetrics History Last Filed Vital Signs Vital Sign Reading Time Taken Comments Blood Pressure 145/93 10/16/2024 10:57 AM CDT Pulse 65 10/16/2024 10:57 AM CDT Temperature 36.6 C (97.9 F) 10/16/2024 10:57 AM CDT Respiratory Rate 16 05/13/2024 6:19 PM CDT Oxygen Saturation 99% 10/16/2024 10:57 AM CDT Inhaled Oxygen Concentration - - Weight 120.2 kg (265 lb) 05/13/2024 6:19 PM CDT Height 193 cm (6' 4) 05/13/2024 6:19 PM CDT Body Mass Index 32.26 05/13/2024 6:19 PM CDT Plan of Treatment Health Maintenance Due Date Last Done Comments HIV for age 15-65 1985 Colonoscopy through age 75 10/13/2015 Lipids for age 45-75 10/13/2015 Pneumococcal series for age 50+ (1 of 1 - PCV) 2020 Zoster (shingles) series for age 50+ (1 of 2) 2020 Depression screening for age 12+ 02/12/2021 02/13/20 20, 01/30/2020 Tetanus booster 02/17/2023 02/17/2013 BMI (ht and wt on same day) for age 18+ 12/15/2023 12/14/2022, 11/27/2022, 11/02/2022, Additional history exists COVID-19 vaccine series ( season) 2024 07/20/2021, 10/21/2020 Influenza Vaccine (Season Ended) 2025 Tdap Completed 02/17/2013 Hepatitis C screening for ag e 18-79 Completed 02/24/2020 Medical Devices Implanted Type Area Home Advisor Device Identifier Shelf Expiration Date Model / Serial / Lot Implnt Transphenoidal Sellar Porex - [id number] Implanted:Qty: 1 on 04/24/2019 by Ignacio Myers MD at [facility] N/A: Cranium [place] Craniomaxillofacial 08/05/2028 [id number]# / / [id number] Valve Neuro Micro Hakim W/ Sumrall - [id number] Implanted:Qty: 1 on 05/02/2019 by Ignacio Myers MD at [facility] Right: Cranium [employer] Jamie 09/05/2023 [id number]# / / [id number] Implnt Transphenoidal Sellar Porex - [id number] Implanted:Qty: 1 on 08/08/2019 by Ignacio Myers MD at [facility] N/A: [employer] [place] Craniomaxillofacial [id number]# / / Screw Neuro 4mm Matrixneuro Slf Drill Titnm - [id number] Implanted:Qty: 16 on 02/18/2020 by Ignacio Myers MD at [facility] Right: [employer]ium J And J Depuy CMF 04.503.1 04.01# / / Screw Neuro 5mm Matrixneuro Slf Drill Titnm - [id number] Implanted:Qty: 2 on 02/18/2020 by Ignacio Myers MD at [facility] Right: Cranium [employer] Depuy CMF 04.503.1 05.01# / / Plate Facial 12mm 2hole Synthes Stra - [id number] Implanted:Qty: 1 on 02/18/2020 by Ignacio Myers MD at [facility] Right: [employer] CMF [id number]# / / Kitty Hole Cover Neuro 24mm Synthes Low Pro Titnm - [id number] Implanted:Qty: 3 on 02/18/2020 by Ignacio Myers MD at [facility] Right: [employer] J [employer] Depuy CMF 421.528# / / Dura Neuro 2x2in Durepair Sut - [id number] Implanted:Qty: 1 on 02/18/2020 by Ignacio Myers MD at [facility] Right: Cranium [employer] 04/05/2022 [id number]# / / [id number] Implnt Pterional Rt - [id number] Implanted:Qty: 1 on 02/18/2020 by Ignacio Myers MD at [facility] Right: [employer] Cran[employer]axill[employer] 10/04/2027 [id number]# / / [id number] Procedures Procedure Name Priority Date/Time Associated Diagnosis Comments MR HEAD BRAIN PITUITARY WWO Routine 10/16/2024 10:52 AM CDT Pituitary macroadenoma (HC) ACUTE HEPATITIS PANEL WALT 02/24/2020 6:22 AM CDT from Last 3 Months or Most Recently Relevant to Health Maintenance Results * MR HEAD BRAIN PITUITARY WWO (10/16/2024 10:52 AM CDT) Anatomical Region Laterality Modality BRAIN, HEAD Magnetic Resonan ce 10/16/2024 1:08 PM CDT Narrative 10/16/2024 1:08 PM CDT For Patients: As a result of the Cures Act, medical imaging exams and procedure reports are released immediately into your electronic medical record. You may view this report before your referring provider. If you have questions, please contact your health care provider. Indication: Pituitary macroadenoma. Technique: Multiplanar multisequence MR imaging of the brain and sella prior to and following intravenous administration of 20 mL Clariscan. Comparison: MRI brain 10/18/2023. Findings: Postsurgical changes of remote right frontotemporal craniotomy with stable encephalomalacia and gliosis in the lateral right frontal lobe and right temporal operculum. Stable subjacent dural thickening. Hypoenhancing, T2 hyperintensity within the sella measuring 13 x 8 x 13 mm (TR/CC/AP), previously 12 x 7 x 12 mm. No extension into the cavernous sinuses. Stable rightward positioning of the infundibulum. No mass effect on the optic chiasm or prechiasmatic optic nerves. Stable T2 hyperintense signal abnormality within the optic chiasm and prechiasmatic optic nerves. Minimal diffuse cerebral volume loss. No mass effect or midline shift. Stable chronic lacunar infarction right thalamus. Postsurgical changes of right parieto-occipital kitty hole and gliosis along a removed right occipital catheter tract. No diffusion restriction to suggest acute infarction. The major arterial flow voids of the skull base are preserved. Thinning of the ocular lenses. Mild paranasal sinus mucosal thickening. Mastoid air cells are clear. Impression: 1. 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 No suprasellar mass effect or cavernous sinus extension. 2. No acute intracranial abnormality. Dictated by Sp Alvarado MD @ 10/16/2024 1:08:19 PM (Electronically Signed) Procedure Note Sp Alvarado MD - 10/16/2024 For Patients: As a result of the Cures Act, medical imagingexams and procedure reports are released immediately into your electronicmedical record. You may view this report before your referring provider.If you have questions, please contact your health care provider. Indication: Pituitary macroadenoma. Technique: Multiplanar multisequence MR imaging of the brain and sella prior to andfollowing intravenous administration of 20 mL Clariscan. Comparison: MRI brain 10/18/2023. Findings: Postsurgical changes of remote right frontotemporal craniotomy with stableencephalomalacia and gliosis in the lateral right frontal lobe and righttemporal operculum. Stable subjacent dural thickening. Hypoenhancing, [id number] within the sella measuring 13 x 8 x 13 mm (TR/CC/AP),previously 12 x 7 x 12 mm. No extension into the cavernous sinuses. Stablerightward positioning of the infundibulum. No mass effect on the opticchiasm or prechiasmatic optic nerves. Stable T2 hyperintense signalabnormality within the optic chiasm and prechiasmatic optic nerves. Minimal diffuse cerebral volume loss. No mass effect or midline shift.Stable chronic lacunar infarction right thalamus. Postsurgical changes of right parieto-occipital kitty hole and gliosisalong a removed right occipital catheter tract. No diffusion restrictionto suggest acute infarction. The major arterial flow voids of the skull base are preserved. Thinning ofthe ocular lenses. Mild paranasal sinus mucosal thickening. Mastoid aircells are clear. Impression: 1. 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 No suprasellar mass effect or cavernoussinus extension. 2. No acute intracranial abnormality. Dictated by Sp Alvarado MD @ 10/16/2024 1:08:19 PM (Electronically Signed) us Ignacio Myers MD MR Final R esult * ACUTE HEPATITIS PANEL (02/24/2020 6:22 AM CDT) HEPATITIS C ANTIBODY Non-Reactive Non-Reactive 02/24/2020 3:30 PM CDT [facility] Comment:Antibodies to HCV no t detected; does not exclude the possibility of exposure to HCV. IGM ANTI HAV Non-Reactive Non-Reactive 02/24/20 3:30 PM CDT [facility] HBSAG Nonreactive Nonreactive 02/24/2020 3:30 PM CDT [facility] IGM ANTI HBC Non-Reactive Non-Reactive 02/24/20 3:30 PM CDT [facility] Blood BLOOD SPECIMEN / Unknown Venipuncture / Unknown 02/24/2020 6:22 AM CDT 02/24/2020 6:39 AM CDT Narrative [facility] - 02/24/2020 3:30 PM CDT Anti-HBc IgM not detected. Does not exclude the possibility of exposure to or infection with HBV. Emma Stearns NP SEND OUTS Final Result [facility] [address] [place] [address], [place] from Last 3 Months or Most Recently Relevant to Health Maintenance Insurance MEDICARE PART A HB ONLY MEDICARE PART B HB ONLY MEDICARE PB ONLY Advance Directives * Full Code (Latest Code Status on File) Date Activated Date Inactivated Comments 09/29/2023 5:30 PM 09/30/2023 8:29 PM Question Answer Comments Code Status Discussion: Reviewed Preferences * Full Code Date Activated Date Inactivated Comments 11/08/2022 8:36 AM 11/10/2022 8:32 PM Question Answer Comments Code Status Discussion: Per Existing Order * Full Code Date Activated Date Inactivated Comments 04/09/2020 10:42 AM 04/09/2020 11:28 PM Question Answer Comments Code Status Discussion: Discussed * Full Code Date Activated Date Inactivated Comments 02/18/2020 6:19 AM 02/26/2020 4:57 PM * Full Code Date Activated Date Inactivated Comments 08/08/2019 6:06 AM 08/11/2019 3:35 PM Care Teams Survey Supervisor Relationship Specialty Start Date End Date Salinas Blum MD PCP - General 10/08/09 Robin Martinez MD [address] [facility] [address] [place] [address] Endocrinology 03/06/23
--- OUTSIDE RECORDS SUMMARY | 2024-11-12 15:28 | XMS_ITS | Clinical Summary ---
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 Motor Vehicles Name Role Phone [facility] Unavailable Unava ilable Conditions or Problems Problem Name Problem Code Onset Date Status Entry Date Provider Comment Standard Description Annotate Spells 74710343 (SNOMED CT) 03/05 Active 03/05 Maribel Maciel MD Stupor Chronic migraine 558947934 (SNOMED CT) 03/05 Active 03/05 Maribel Maciel MD Transformed migraine HEADACHE 34956497 (SNOMED CT) 11/13 Active 11/13 Maribel Maciel MD Headache Transient neurological symptoms 600170114 (SNOMED CT) 11/13 Active 11/13 Maribel Maciel MD Transient neurological symptoms Vision changes 29307716 (SNOMED CT) 08/09 Active 11/11 Umm Rakow Disorder of vision Imported from [facility]: [employer] ( 4 at 08:35:00 AM) Syncope 941270744 (SNOMED CT) 04/25 Active 11/11 Umm Rakow Syncope Imported from [facility]: [employer] [facility] [employer] ( 4 at 08:35:00 AM) Sepsis 85637615 (SNOMED CT) 09/29 Active 11/11 Umm Rakow Sepsis Imported from [facility]: [employer] [facility] [facility] [employer] ( 4 at 08:35:00 AM) Secondary adrenal insufficienc y 38941535 (SNOMED CT) 09/29 Active 11/11 Umm Rakow Hypocortisolism secondary to another disorder Imported from [facility]: [facility] [employer] [facility] ( 4 at 08:35:00 AM) S/P ventriculope ritoneal shunt Z98.2 (ICD-10-CM ) 09/29 Active 11/11 Umm Rakow Presence of cerebrospinal fluid drainage device Imported from [facility]: [facility] [employer] [facility] ( 4 at 08:35:00 AM) S/P craniotomy Z98.890 (ICD-10-CM ) 09/29 Active 11/11 Umm Rakow Other specified postprocedural states Imported from A: [facility] [employer] [facility] ( 4 at 08:35:00 AM) Pituitary macroadenoma 061243766 (SNOMED CT) 09/29 Active 11/11 Umm Rakow Pituitary macroadenoma Imported from [facility]: [facility] [employer] [facility] ( 4 at 08:35:00 AM) Obstructive hydrocephalu s 102149558 (SNOMED CT) 09/29 Active 11/11 Umm Rakow Obstructive hydrocephalus Imported from [facility]: [facility] [employer] [facility] ( 4 at 08:35:00 AM) Hyponatremia 81262578 (SNOMED CT) 08/09 Active 11/11 Umm Rakow Hyponatremia Imported from [facility]: [facility] [employer] [facility] ( 4 at 08:35:00 AM) Hypertension 89352685 (SNOMED CT) 09/29 Active 11/11 Umm Rakow Hypertensive disorder Imported from [facility]: [facility] [employer] [facility] ( 4 at 08:35:00 AM) Headache 33531417 (SNOMED CT) 09/29 Active 11/11 Umm Rakow Headache Imported from [facility]: [facility] [employer] [facility] ( 4 at 08:35:00 AM) Growth hormone deficiency E23.0 (ICD-10-CM ) 10/07 Active 11/11 Umm Freire Hypopituitarism Imported from [facility]: [facility] ( 4 at 08:35:00 AM) Elevated LFTs R79.89 (ICD-10-CM ) 02/23 Active 11/11 Umm Freire Other specified abnormal findings of blood chemistry Imported from [facility]: [facility] [employer] [facility] ( 4 at 08:35:00 AM) Common bile duct calculus 681655390 (SNOMED CT) 02/25 Active 11/11 Umm Freire Common bile duct calculus Imported from [facility]: [facility] [employer] [facility] ( 4 at 08:35:00 AM) Medications Medication Instructions Start Date Stop Date Generic Name NDC Provider LEVETIRACETAM ER 750 MG QV11A-NMR Take 1 tablet by mouth once a day for 7 days, then take 2 tablet by mouth once a day 03/05 levetiracetam [id number] Maribel Maciel MD LEVETIRACETAM ER 750 MG [id number] TAKE 1 TABLET BY MOUTH ONCE A DAY FOR 7 DAYS, THEN TAKE 2 TABLET BY MOUTH ONCE A DAY 10/07 levetiracetam 08526519840 Maribel Maciel MD AZATHIOPRINE 50 MG TABS TAKE 2 TABLETS BY MOUTH DAILY azathioprine 08402446338 Maribel Maciel MD LAMOTRIGINE ER 50 MG [id number] Take 3 tablet by mouth once a day for 7 days, then take 4 tablet by mouth once a day for 7 days, then take 5 tablet by mouth once a day for 7 days 08/20 lamotrigine 61594469717 Maribel Maciel MD LAMOTRIGINE ER 25 MG [id number]-XTJ Take 1 tablet by mouth once a day for 14 days, then take 2 tablet by mouth once a day for 14 days, then take 4 tablet by mouth once a day 08/20 lamotrigine 28259148782 Maribel Maciel MD LAMOTRIGINE ER 300 MG [id number] Take 1 tablet by mouth once a day 08/20 lamotrigine 20634970411 Maribel Maciel MD RIZATRIPTAN BENZOATE 10 MG TABS Take 1 tab po at the onset of migraine. Ok to repeat in 2 hours. Do not exceed 2 tabs in 24 hours. Max 9 tablets/month 08/23 rizatriptan 50203466402 Maribel Maciel MD NURTEC 75 MG TBDP Take 1 tablet by mouth as directed Take 1 tab at onset of migraine. Do not take more than 1 tablet in a 24-hour period. 08/11 rimegepant 60804049947 Maribel WOODRUFFGOVY 0.5 MG/0.5ML SOAJ INJECT 0.5 MG SUBCUTANEOUS ONCE WEEKLY. THEN INCREASE TO 1 MG WEEKLY AFTER 4 WEEKS. 06/11 semaglutide (weight loss) 73534890911 Maribel Maciel MD HYDROXYCHLOROQUINE SULFATE 200 MG TABS 06/11 hydroxychloroquine 76639050357 Maribel Maciel MD ENBREL SURECLICK 50 MG/ML SOAJ etanercept 21465934047 Maribel WOODRUFFGOVY 2.4 MG/0.75ML SOAJ semaglutide (weight loss) 73129392556 Maribel Maciel MD PROPRANOLOL HCL ER 60 MG [id number]-[id number] TAKE 1 CAPSULE BY MOUTH EVERY DAY 11/22 propranolol 55828557536 Maribel Maciel MD PROPRANOLOL HCL ER 60 MG JJ68A-QJE TAKE 1 CAPSULE BY MOUTH EVERY DAY 04/21 propranolol 43732537131 Maribel Maciel MD EMGALITY 120 MG/ML SOAJ Loading dose of 2 injections the first month 03/05 gal[facility]anezumab-[facility] [id number] Maribel Maciel MD EMGALITY 120 MG/ML SOAJ Inject 1 pen injector subcutaneously once a month as directed (after first months loading dose) 20203/05 galcanezumab-[facility] [id number] Maribel Maciel MD AJOVY 225 MG/1.5ML SOAJ 1 sq q 28 days 03/26 fremanezumab-[facility] [id number] Maribel Maciel MD EMGALITY 120 MG/ML SOAJ Inject 1 pen injector subcutaneously once a month as directed (after first months loading dose) 03/05 galcanezumab[facility] [id number] Maribel Maciel MD EMGALITY 120 MG/ML SOAJ Loading dose of 2 injections the first month 03/05 [facility]anezumab[facility] [id number] Maribel Maciel MD LEVETIRACETAM ER 750 MG [id number] Take 1 tablet by mouth once a day for 7 days, then take 2 tablet by mouth once a day 03/05 levetiracetam 30377413276 Maribel Maciel MD PROCHLORPERAZINE MALEATE 10 MG TABS 03/05 prochlorperazine maleate 44153502764 Maribel Maciel MD PHENTERMINE HCL 37.5 MG CAPS TAKE 1 CAPSULE BY MOUTH DAILY; ADMINISTER 30 MINUTES BEFORE OR 1-2 HOURS AFTER BREAKFAST 03/05 phentermine 16179555081 Maribel Maciel MD NORDITROPIN FLEXPRO 10 MG/1.5ML SOPN somatropin 64831456829 Maribel Maciel MD WEGOVY 0.5 MG/0.5ML SOAJ INJECT 0.5 MG SUBCUTANEOUS ONCE WEEKLY. THEN INCREASE TO 1 MG WEEKLY AFTER 4 WEEKS. 06/11 semaglutide (weight loss) 48943912245 Maribel Maciel MD TOPIRAMATE 50 MG TABS Take 1 tablet by mouth once a day x 1 week; then take 1 tablet twice a day x 1 week; then take 2 tablets in the morning and take 1 tablet in the evening x 1 week; then take 2 tablets twice a day 11/13 topiramate 76298039992 Maribel Maciel MD PROPRANOLOL HCL ER 60 MG [id number] TAKE 1 CAPSULE BY MOUTH EVERY DAY 11/22 propranolol 10421674751 Maribel Maciel MD TOPIRAMATE 50 MG TABS Take 1 tablet by mouth once a day x 1 week; then take 1 tablet twice a day x 1 week; then take 2 tablets in the morning and take 1 tablet in the evening x 1 week; then take 2 tablets twice a day 11/13 topiramate 31495721230 Maribel Maciel MD TOPIRAMATE 50 MG TABS 1 po qday x 1 week, 1 po BID x 1 week then 2 po qam x 1 week then 2 po BID 11/13 topiramate 13577373824 Maribel Maciel MD METHOTREXATE SODIUM 2.5 MG TABS 11/13 methotrexate sodium 52885115502 Maribel Maciel MD HYDROCORTISONE 10 MG TABS hydrocortisone 23942102152 Maribel Maciel MD TESTOSTERONE CYPIONATE 200 MG/ML SOLN INJECT 150 MG (0.75 ML) INTRAMUSCULARLY EVERY 2 WEEKS testosterone cypionate 68716911384 Maribel Maciel MD PHENTERMINE HCL 37.5 MG CAPS TAKE 1 CAPSULE BY MOUTH DAILY; ADMINISTER 30 MINUTES BEFORE OR 1-2 HOURS AFTER BREAKFAST 03/05 phentermine 38217745187 Maribel Maciel MD TRAZODONE HCL 150 MG TABS trazodone 37684216617 Maribel Maciel MD HYDROXYCHLOROQUINE SULFATE 200 MG TABS 06/11 hydroxychloroquine 06903610023 Maribel aMciel MD METHOTREXATE SODIUM 2.5 MG TABS 11/13 methotrexate sodium 59308825974 Maribel Maciel MD TIZANIDINE HCL 4 MG TABS tizanidine 11383968502 Maribel Maciel MD FOLIC ACID 1 MG TABS TAKE 1 TABLET DAILY folic acid 07276019936 Maribel Maciel MD LEVOTHYROXINE SODIUM 137 MCG TABS levothyroxine 93020053222 Azeem Maciel MD PROCHLORPERAZINE MALEATE 10 MG TABS 03/05 prochlorperazine maleate 88758859267 Maribel Maciel MD Medications Administered No information available. Allergies, Adverse Reactions, Alerts Allergy Name Reaction Description Start Date Severity Statu s Provider SUMATRIPTAN Other - Describe In Comment Field Mild Active Umm Freire SULFASALAZINE Rash Mild Active Kaylah Freire Results Date Name Value Unit Range Flag Description Chart Maintenance: Patient I ntake HCV VIRUS AB Non-Reactive Hep atitis C virus 5-1-1 Ab [Presence] in Serum by Immunoblot FRT4 1.24 FREE T4 CA 8.5 mg/dL Calcium [Mass /volume] in Serum or Plasma ABSOLUTE BAS completed 10*3/uL Basoph ils [#/volume] in Blood GLUCOSE SER 73 mg/dL Glucose [ Mass/volume] in Serum or Plasma BILI INDIREC 0.8 mg/dL bilirubi n, serum, indirect MPV 9.2 fL Platelet mean volume [Entitic volume] in Blood by Sandra BUN/CREAT 10 Urea nitrogen/Creatinine [Mass Ratio] in Serum or Plasma MCH 27.6 pg MCH [Entitic mass] by Automated count RDW 14.6 % Erythrocyte distribution width [Ratio] by Automated count MCHC 33.1 % MCHC [Mass/vo lume] by Automated count MCV 83 fL MCV [Entitic volume] by Automated count ANION GAP 7 Anion gap 4 in Serum or Plasma TESTO, TOTAL 755 ng/dL Testoste domi [Mass/volume] in Serum or Plasma SODIUM 143 mmol/L Sodium [Moles /volume] in Serum or Plasma ANTI-HBS Nonreactive Hepatiti s B virus surface Ab [Presence] in Serum WBC 5.4 10*3/mm3 Leukocytes [ #/volume] in Blood by Automated count RBC 4.79 10*6/mm3 Erythrocytes [#/volume] in Blood by Automated count PLATELETS 219 10*3/mm3 Platelets [#/volume] in Blood by Automated count HGB 13.2 g/dL Hemoglobin [Mass/volume] in Blood HCT 39.9 % Hematocrit [V olume Fraction] of Blood by Automated count BILI TOTAL 1.1 mg/dL Bilirubin. total [Mass/volume] in Serum or Plasma SGPT (ALT) 29 U/L Alanine aminotransferase [Enzymatic activity/volume] in Serum or Plasma SGOT (AST) 26 U/L Aspartate aminotransferase [Enzymatic activity/volume] in Serum or Plasma PSA 1.3 ng/mL Prostate spec ific Ag [Mass/volume] in Serum or Plasma PROTEIN, TOT 5.8 g/dL Protein [Mass/volume] in Serum or Plasma POTASSIUM 4.2 mmol/L Potassium [Moles/volume] in Serum or Plasma HGBA1C 5.3 % Hemoglobin A1c/Hemoglobin, total in Blood - % BILI DIRECT 0.3 mg/dL Bilirubin .direct [Mass/volume] in Serum or Plasma CREATININE 1.23 mg/dL Creatinine [Mass/volume] in Serum or Plasma CHLORIDE 109 mmol/L Chloride [Moles/volume] in Serum or Plasma BUN 12 mg/dL Urea nitrogen [Mass/volume] in Serum or Plasma ALK PHOS 43 U/L Alkaline fede sphatase [Enzymatic activity/volume] in Blood Office Visit: Office Visit [facility]-referring req BAS MRI/CT [facility] Rec X SMOK STATUS 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 Procedure: Occipital Nerve B lock Injection HEADACHE MEDS REVIEW Done Documenta tion of current medications (procedure) Internal Other: Authorizatio n - OBS [email or web address] Yes Authoriza tion: Release of Information - Authorize [facility] - Payment and Healthcare Operations ROIAUTHOTHER Yes Authoriz ation: Release of Information - Authorize Others/Insurance - Payment and Healthcare Operations HIECONSENT Yes Consent To Release information to the Health Information Exchange (HIE) [email or web address] Yes Authorizat ion: Authorization for Kaushik/KAYDEN to leave messages, voicemail, send text messages, send emails AUTHRELHCARE Yes Authoriz ation: Release/Retrieval of Information to/from Healthcare Facilities, Pharmacy Benefit Payers and Providers AUTHPRIVPRAC Yes Authoriz ation: Notice of privacy practices AUTHBENEFIT Yes Authoriza tion: Assignment of Benefits and Payment Agreement Plan of Care Type Date Detail Pending order Follow up teleme dicine Pending order EEG Ambulatory ( 74hr) Pending order Patient Instruct ions Pending order Follow up Pending order Follow up Pending order EEG Ambulatory ( 74hr) Pending order EEG 26hr (all ag es) Pending order Follow up teleme dicine Pending order Follow up Pending order Patient Instruct ions Pending order EEG (40min) Pending order Occipital Nerve Block Injection Pending order Patient Instruct ions Procedures Code Procedure Name Date Entry Date ORDERS Follow up telemedicine 06/11 ORDERS Patient Instructions 45656// EEG 26hr (all ages) 202 11/14/05 CPT-82624 EEG Setup CPT-35488 Video EEG 26hrs 1min-36hrs () 4 CPT-12025 Video EEG 26hrs 1min-36hrs ([place]) CPT-57778 Video EEG 26hrs 1min-36hrs ()* CPT-91063 Video EEG 26hrs 1min-36hrs (Tech)* / ORDERS Follow up telemedicine 03/05 CPT-G2211 Complex e/m visit add on 202 11/10/30 ORDERS Follow up ORDERS Patient Instructions CPT-73874 EEG (AWAKE/DROWSY) (END) 202 11/08/[place] [address] [place] [address] EEG (40min) ORDERS Patient Instructions 65706/50041 Occipital Nerve Block Injection 0 CPT-04231 Occipital nerve bloc k (Greater ONB) unilateral CPT-46116 Lesser ONB/3rd ONB/Auricular/Preauricular,unilateral CPT-J1100 Dexamethasone -- 10 mg 11/13 [id number] Documentation of current medicatio ns Vital Signs Date Name Value Unit Description Height 75.98 [in_us] height E&M BMI (Body Mass Index) 32.97 kg/m2 Bod y Mass Index (Ratio) Body Temperature 36.28 [degF] temperat ure E&M BP Diastolic 72 mm[Hg] blood pressu re, diastolic BP Systolic 133 mm[Hg] blood pressur e, systolic Heart Rate 65 /min pulse rate Respiratory Rate 17 /min respirat ory rate E&M Weight Measured 122.879 kg weight in kilograms E&M Immunizations No information available. Advance Directives No information available.
--- NOTE | 2024-11-12 16:01 | ED.FEVER ---
HPI - Fever General Time Seen by Provider: 16:03 Date Seen: 11/12/24 Chief Complaint: Fever Stated Complaint: vomiting, bloody stool, headache, body aches Time Seen by Provider: 11/12/24 16:01 Source: patient, RN notes reviewed and old records reviewed Mode of arrival: ambulatory Limitations: no limitations History of Present Illness HPI Narrative: This 54-year-old male is accompanied by a his with fevers, nausea vomiting diarrhea, headache and body aches. He woke around 2:00 a.m., has had about 8-10 episodes of non bloody vomiting, has maybe kept a little fluids in not much. He is really not been able to tolerate anything. He has a severe generalized headache but no neck pain. He has no sore throat, no respiratory symptoms, not coughing. He has had diarrhea too, some blood mixed in the stools. He is not having any pain with wiping, no hemorrhoids. His hips and knees hurt, has generalized body aches. He has had no travel, is not aware of any food-borne illness that he suspects. He does not have any chest pain or chest symptoms. He has had a little abdominal discomfort but would not state he has any significant abdominal pain. 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 His past medical history is reviewed, medications are reviewed. He did have influenza a on July 29 2024 in our records. Patient was hospitalized at [facility] with sepsis due to pneumonia and enterocolitis in September of last year. His symptoms today are more reminiscent of his illness at [facility] which was influenza, does not feel like his sepsis an illness for which he was hospitalized at [facility] last year. Related Data Home Medications ?Medication ?Instructions ?Recorded ?Confirmed aspirin 81 mg tablet,delayed mg 11/12/24 release lamotrigine 300 mg tablet,extended 150 mg PO DAILY 11/12/24 11/12/24 release 24 hr levetiracetam 500 mg tablet 750 mg PO BID 11/12/24 11/12/24 prednisone 5 mg tablet 5 mg PO DAILY 11/12/24 11/12/24 trazodone 50 mg tablet 150 mg PO QHS PRN insomnia 11/12/24 11/12/24 Previous Rx's ?Medication ?Instructions ?Recorded levothyroxine 137 mcg tablet 137 mcg PO QDAY #90 tabs 09/21/23 testosterone cypionate 200 mg/mL 150 mg (0.75 mL) IM Q2W #6 mL 11/13/23 intramuscular oil tizanidine 4 mg tablet 4 mg PO QHS PRN muscle spasticity 08/04/24 #30 tabs Allergies Allergy/AdvReac Type Severity Reaction Status Date / Time sumatriptan (From Imitrex) Allergy Severe horribly Verified 11/12/24 18:05 sick Review of Systems Status of ROS Reports: 6 or more systems reviewed and unremarkable except as noted in History and below [facility] Medical History (Updated 11/12/24 @ 20:44 by Stella Blackwell MD) Metabolic syndrome ?E88.81 - Metabolic syndrome (ICD-10) Chronic headaches ?R51.9 - Headache, unspecified (ICD-10) ?G89.29 - Other chronic pain (ICD-10) Hx of skin cancer, basal cell ?Z85.828 - Personal history of other malignant neoplasm of skin (ICD-10) Family history of pancreatic cancer ?Z80.0 - Family history of malignant neoplasm of digestive organs (ICD-10) Family history of diabetes mellitus ?Z83.3 - Family history of diabetes mellitus (ICD-10) Family history of prostate cancer ?Z80.42 - Family history of malignant neoplasm of prostate (ICD-10) Hypertension ?I10 - Essential (primary) hypertension (ICD-10) Surgical History (Updated 11/12/24 @ 19:12 by Stella Blackwell MD) S/P ERCP ?Z98.890 - Other specified postprocedural states (ICD-10) 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) S/P rotator cuff surgery ?Z98.890 - Other specified postprocedural states (ICD-10) S/P BAND STRA[employer]ENER shunt ?Z98.2 - Presence of cerebrospinal fluid drainage device (ICD-10) S/P cholecystectomy ?Z90.49 - Acquired absence of other specified parts of digestive tract (ICD-10) S/P cataract extraction ?Z98.49 - Cataract extraction status, unspecified eye (ICD-10) Family History Other Diabetes Pancreatic cancer Prostate cancer Social History What is your current living situation?: I presently have a place to live Problems where you live: no known problems Problems where you live details: n/a In the past 12 months, utilities in danger of being shut off: no In past 12 months, lack of transportation kept you from medical appts, meetings, work, or getting things needed for daily living: no In the past 12 mos, have been you worried that your food would run out before you had money to buy more?: never true In the past 12 mos, the food you bought just didn't last and you didn't have money to buy more?: never true Highest level of school completed/degree received: high school graduate Smoking Status: Never smoker Do you use any of these nicotine containing products: None Second hand tobacco smoke exposure: No How often do you have a drink containing alcohol: monthly or less How often do you have six or more drinks on one occasion: Never AUDIT-C Alcohol total score: 1 Non-prescribed substance use: denies use Caffeine: No How often does anyone, including family, friends and others, physically hurt you: never How often does anyone, including family, friends and others, insult or talk down to you: never How often does anyone, including family, friends and others, threaten you with harm: never How often does anyone, including family, friends and others, scream or curse at you: never service: No Exam Const Vital Signs, click to edit/add: Vital Signs - 24 hr 11/12/24 15:52 11/12/24 16:45 11/12/24 16:46 Temperature 102.4 F H Pulse Rate Pulse Rate [Pulse Oximeter] 140 H Respiratory Rate 20 22 Blood Pressure Blood Pressure [Right Arm] Blood Pressure [Right Upper Arm] 106/82 Pulse Oximetry 98 92 92 Oxygen Delivery Method Room Air Room Air 11/12/24 17:00 11/12/24 17:15 11/12/24 17:17 Temperature Pulse Rate Pulse Rate [Pulse Oximeter] 118 H 116 H Respiratory Rate 28 H 24 25 H Blood Pressure Blood Pressure [Right Arm] Blood Pressure [Right Upper Arm] 115/82 116/73 Pulse Oximetry 91 92 92 Oxygen Delivery Method 11/12/24 17:30 11/12/24 17:31 11/12/24 17:46 Temperature Pulse Rate 112 H Pulse Rate [Pulse Oximeter] Respiratory Rate 26 H 24 22 Blood Pressure 122/74 113/73 Blood Pressure [Right Arm] Blood Pressure [Right Upper Arm] Pulse Oximetry Oxygen Delivery Method 11/12/24 18:16 11/12/24 18:17 11/12/24 18:18 Temperature 100.2 F H Pulse Rate 111 H 110 H 111 H Pulse Rate [Pulse Oximeter] Respiratory Rate 23 23 17 Blood Pressure 89/64 L 94/61 93/59 L Blood Pressure [Right Arm] Blood Pressure [Right Upper Arm] Pulse Oximetry 93 91 94 Oxygen Delivery Method 11/12/24 18:31 11/12/24 20:11 Temperature 99.5 F Pulse Rate 106 H Pulse Rate [Pulse Oximeter] 100 Respiratory Rate 15 20 Blood Pressure 95/62 Blood Pressure [Right Arm] 108/73 Blood Pressure [Right Upper Arm] Pulse Oximetry 93 97 Oxygen Delivery Method Room Air This 54-year-old male is alert, interactive but looks like he does not feel well, face is erythematous and flush but no rash. Pupils equal round reactive, sclera slightly injected but no periorbital swelling or erythema, no drainage. Lips are normal but oropharynx is dry. He is able to speak in complete sentences, speech is normal. Neck is supple, no adenopathy, no evidence of any meningismus. Lungs are clear, good air entry, no wheeze or crackles. CV fast but regular, no murmur, normal S1-S2. Abdomen has bowel sounds without any concerning character, abdomen is soft, nontender, nondistended, no organomegaly, no rebound or guarding. He is able to move arm and legs, note no rash. Documenting provider has reviewed patient's vital signs: yes Course Course ED Course: Will initiate IV fluids, obtain blood cultures, full complement of labs. Will watch him closely, is on steroids, may need stress dosing and will discuss that with him. He is requesting something for his body aches. Will give IV Toradol as well as IV acetaminophen. They understand we may need to do further imaging. I think his headache is coming from his illness which certainly could be viral. Will have a low threshold to do further imaging, consider sepsis and further evaluation and workup in this patient. Reevaluation(s) Time of Reevaluation #1: 17:38 Reevaluation #1: Have reviewed with patient and his that his white count is normal, triple viral swab is negative. We did discuss that his initial presentation with vitals does trigger concerns for sepsis. I have ordered 1/3 L of IV fluids, believe he is just completing his 1 L. his total goal fluids would be 3720 mL. We will give stress dose steroids, he is using prednisone daily right now, will give IV hydrocortisone. We have also reviewed that we are going to do the chest abdomen pelvis CT to ensure that we are not missing any acute bacterial pathology. He is still not had to urinate but is only had 1 L of IV fluids in. Consultations Consultation #1: Have reviewed with the hospitalist Dr. Blackwell. We have discussed antibiotics, reviewed with her his recent dip in his blood pressure. Nursing staff had only given 1 L of IV fluids, have got L 2 And L 3 running in now. It could be adrenal insufficiency, was just given his hydrocortisone IV. Still need to highly consider sepsis in this patient with the elevated procalcitonin. She would like to have time to review, does not want me to give him antibiotics yet. His CT imaging is normal. He does need to be hospitalized and monitored however given his history. He has not had diarrhea here but will make sure stool studies are ordered as well. Patient agrees to hospitalization. Time: 19:05 Vital Signs Vital signs: Initial Vital Signs Temperature 102.4 F H 11/12/24 15:52 Temperature Source Temporal Artery Scan 11/12/24 15:52 Pulse Rate 140 H 11/12/24 15:52 Respiratory Rate 20 11/12/24 15:52 Blood Pressure 106/82 11/12/24 15:52 Blood Pressure Mean 90 11/12/24 15:52 Pulse Oximetry 98 11/12/24 15:52 Oxygen Delivery Method Room Air 11/12/24 15:52 Vital Signs Temperature 102.4 F H 11/12/24 15:52 Pulse Rate 140 H 11/12/24 15:52 Respiratory Rate 20 11/12/24 15:52 Blood Pressure 106/82 11/12/24 15:52 Pulse Oximetry 98 11/12/24 15:52 Oxygen Delivery Method Room Air 11/12/24 15:52 Temperature 99.5 F 11/12/24 20:26 Pulse Rate 98 11/12/24 22:32 Respiratory Rate 20 11/12/24 20:26 Blood Pressure 105/82 11/12/24 22:32 Pulse Oximetry 97 11/12/24 20:26 Oxygen Delivery Method Room Air 11/12/24 20:26 Medications Administered Medications: Generic Name Dose Route Start Last Admin Trade Name Freq PRN Reason Stop Dose Admin Hydrocortisone Sodium Succinate 50 mg 11/13/24 00:00 11/12/24 23:45 Hydrocortisone Sod Succinate 50 Mg/Ml Inj IVP 50 mg Q6H JESSICA Administration Piperacillin Sod/Tazobactam 100 mls @ 200 mls/hr 11/12/24 19:15 11/13/24 01:37 Sod 3.375 gm/ Sodium Chloride IVPB 200 mls/hr Q6H JESSICA Administration Lactated Ringer's 1,000 mls @ 200 mls/hr 11/12/24 19:40 11/12/24 23:45 Lactated Ringers 1000 Ml IV 200 mls/hr .Q5H JESSICA Administration Sodium Chloride 5 ml 11/12/24 20:26 11/12/24 23:46 Sodium Chloride 0.9 % (Flush) 10 Ml Syringe IVF 5 ml .FLUSH PRN Administration Sodium Chloride 5 ml 11/12/24 21:00 11/12/24 21:21 Sodium Chloride 0.9 % (Flush) 10 Ml Syringe IVF 5 ml BID JESSICA Administration Discontinued Medications Generic Name Dose Route Start Last Admin Trade Name Sammyq PRN Reason Stop Dose Admin Hydrocortisone Sodium Succinate 100 mg 11/12/24 17:45 11/12/24 18:12 Hydrocortisone Sod Succinate 50 Mg/Ml Inj IVP 11/12/24 17:46 100 mg ONCE ONE Administration Sodium Chloride 1,000 mls @ 1,000 mls/hr 11/12/24 16:11 11/12/24 18:37 0.9 % Sodium Chloride 1000 Ml IV 11/12/24 17:10 Infused .Q1H JESSICA Infusion Acetaminophen 1,000 mg in 100 mls @ 400 mls/hr 11/12/24 16:09 11/12/24 16:59 Acetaminophen Inj IVPB 11/12/24 16:23 Infused ONCE ONE Infusion Sodium Chloride 1,000 mls @ 1,000 mls/hr 11/12/24 16:57 11/12/24 18:24 0.9 % Sodium Chloride 1000 Ml IV 11/12/24 17:56 1,000 mls/hr .Q1H JESSICA Administration Lactated Ringer's 1,000 mls @ 500 mls/hr 11/12/24 17:43 11/12/24 18:12 Lactated Ringers 1000 Ml IV 11/12/24 19:42 500 mls/hr .Q2H JESSICA Administration Ketorolac Tromethamine 15 mg 11/12/24 16:17 11/12/24 16:34 Ketorolac 15 Mg/Ml Inj IVP 11/12/24 16:18 15 mg ONCE ONE Administration Lamotrigine 150 mg 11/12/24 22:15 11/12/24 22:35 Lamotrigine 100 Mg Tablet PO 11/12/24 22:16 150 mg ONCE ONE Administration Levetiracetam 500 mg 11/12/24 21:00 11/12/24 21:46 Levetiracetam 500 Mg Tablet PO 500 mg BID JESSICA Administration Ondansetron HCl 4 mg 11/12/24 16:09 11/12/24 16:34 Ondansetron 2 Mg/Ml Inj IVP 11/12/24 16:10 4 mg ONCE ONE Administration Pantoprazole Sodium 40 mg 11/12/24 20:26 11/12/24 21:47 Pantoprazole Sodium 40 Mg Inj IVP 11/12/24 20:27 40 mg ONCE ONE Administration MDM - Fever Lab Data Attestation: I reviewed the patient's lab results. Labs: Lab Results 11/12/24 11/12/24 Range/Units 16:30 19:14 WBC 7.86 (4.50-11.00) K/uL RBC 6.27 H (4.30-5.90) m/uL Hgb 18.0 H (13.5-17.5) gm/dL Hct 54.3 H (37.0-53.0) % MCV 87 (80-100) fL MCH 29 (26-34) pg MCHC 33 (32-36) gm/dL RDW Coeff of [place] 13.3 (11.5-15.5) % Plt Count 192 (140-440) K/uL Neut % (Auto) 67.0 (42.0-72.0) % Lymph % (Auto) 24.4 (20-44) % [place] % (Auto) 6.2 (0.0-11.0) % Eos % (Auto) 1.8 (0.0-7.0) % Baso % (Auto) 0.1 (0.0-3.0) % Neut # (Auto) 5.26 (1.7-7.0) K/uL Lymph # (Auto) 1.92 (0.90-2.90) K/uL [place] # (Auto) 0.50 (0.00-0.90) K/UL Eos # (Auto) 0.14 (0.00-0.50) K/uL Baso # (Auto) 0.01 (0.00-0.30) K/uL Abs Immat Gran (auto) 0.04 (0.00-0.30) K/uL Imm/Tot Granulo (auto) 0.5 % Sodium 140 (135-149) mmol/L Potassium 3.6 (3.6-5.1) mmol/L Chloride 102 (96-114) mmol/L Carbon Dioxide 26 (20-32) mmol/L Anion Gap 12 (7-15) mEq/L BUN 16 (7-30) mg/dL Creatinine 1.5 (0.5-1.5) mg/dL Estimated Creat Clear 69.12 Estimated GFR 55 ml/min Glucose 152 H (60-115) mg/dL Lactate 2.1 H (0.5-1.9) mmol/L Calcium 9.3 (8.4-10.6) mg/dL Total Bilirubin 2.9 H (0.1-1.5) mg/dL Direct Bilirubin 0.2 (0.0-0.5) mg/dL AST 33 (12-35) U/L ALT 32 (4-50) U/L Alkaline Phosphatase 37 L (40-150) U/L Troponin I < 0.01 (0.01-0.04) ng/mL C-Reactive Protein 5.2 H (0.5-1.0) mg/dL Total Protein 7.7 (6.0-8.3) g/dL Albumin 4.8 (3.3-5.0) g/dL Procalcitonin 1.14 H (<0.50) ng/mL Urine L. pneumophilia Ag L. pneumo Negative (Negative) Urine Strep pneumoniae Ag S. pneumo Negative (Negative) SARS-CoV-2 (PCR) Negative SARS-CoV-2 (Negative) Influenza Type A (PCR) Negative PCR FLU A (Negative) Influenza Type B (PCR) Negative PCR FLU B (Negative) RSV (PCR) Negative PCR RSV (Negative) Imaging Data CT Chest/Ab/Pelvis: Attestation: I have reviewed the pertinent imaging results. Radiologist's impression: Patient: MILA BRAY Facility:?[facility] Patient ID:?[id number] Site Patient ID:?[id number]. Site :?[id number] Study:?CT-Chest/Abd/Pelvis 135CC ISOVUE 370-11/12/2024 6:10:51 PM Ordering Physician:Rehana Boss Final Report: INDICATION: Fever, nausea, vomiting, blood in stool, history of sepsis TECHNIQUE: CT chest was performed with pulmonary angiographic technique. Subsequently, CT abdomen and pelvis with i.v. contrast, scanned during the venous phase. MIPS, coronal and sagittal reformats were obtained. CONTRAST: 135 mL Isovue 370 COMPARISON: None FINDINGS: CHEST: Cardiovascular: The pulmonary arteries are unremarkable in enhancement with no evidence of acute pulmonary embolism. The heart has an unremarkable appearance and size. No sign of aneurysm or dissection in the thoracic aorta. Mediastinum: No mass or adenopathy seen. Lung: There are 2 nodules present near the dome of the right middle lobe measuring up to 7 mm. Pleura and pericardium: No sign of pleural effusion seen. No significant pericardial effusion is present. Chest wall and axilla: No mass or adenopathy seen. ABDOMEN/PELVIS: Liver: Unremarkable. Spleen: Unremarkable. Pancreas: Unremarkable. Gallbladder: Previous cholecystectomy noted with no significant intra- or extrahepatic biliary ductal dilatation seen. Kidney: Unremarkable. No kidney or ureteral stones or obstruction seen. Adrenal: Unremarkable. Bowel: The stomach, small bowel, and colon are unremarkable. The appendix is normal in appearance and size. Vascular: Unremarkable. Lymph: Unremarkable. Peritoneum: Unremarkable. No pneumoperitoneum is seen. No significant ascites is noted. Pelvis: Unremarkable. Soft tissue: Unremarkable. Bone: Unremarkable for age. IMPRESSION: 1. There are 2 nodules present near the dome of the right middle lobe measuring up to 7 mm. Comparison with any prior outside imaging is recommended. If these cannot be obtained, follow up outpatient chest CT is recommended in 3 months. Dictated by Nasim Clark MD @ 11/12/2024 6:25:45 PM Please note that all CT scans at this facility use dose modulation, iterative reconstruction, and/or weight-based dosing when appropriate to reduce radiation dose to as low as reasonably achievable. Dictated by: Nasim Clark MD @ 11/12/2024 18:28:19 (Electronic Signature) ECG Data Attestation: I personally reviewed and interpreted this ECG as follows: ( Sinus tachycardia, 136 beats per minute. Artifact in [address] No acute [address] or T-wave abnormality indicative of any ischemia.) ECG interpretation date: 11/12/24 ECG interpretation time: 16:30 Discharge Plan Discharge Clinical Impression: Fever, Nausea vomiting and diarrhea, Dehydration, Acute hypotension
[2024-11-12] MEDS: 0.9 % SODIUM CHLORIDE 1000 ml 1,000 ML IV ×2 (16:33→18:24)
[2024-11-12] MEDS: KETOROLAC 15 MG/ML inj IVP (16:34)
[2024-11-12] MEDS: ONDANSETRON 2 MG/ML inj 4 MG IVP (16:34)
[2024-11-12] MEDS: ACETAMINOPHEN INJ 1,000 MG/100 ML VIAL 400 MG IVPB (16:39)
[2024-11-12 16:51] LABS: Lactate* 2.1 mmol/L (0.5-1.9)
[2024-11-12 16:58] LABS: Basophils Absolute Auto 0.01 K/uL (0.00-0.30); Basophils Percent Auto 0.1 % (0.0-3.0); Eosinophils Absolute Auto 0.14 K/uL (0.00-0.50); Eosinophils Percent Auto 1.8 % (0.0-7.0); Hematocrit 54.3 % (37.0-53.0); Immature Granulocytes Abs Auto 0.04 K/uL (0.00-0.30); Immature Granulocytes Pct Auto 0.5 %; Lymphocytes Absolute Auto 1.92 K/uL (0.90-2.90); Lymphocytes Percent Auto 24.4 % (20-44); Mean Corpuscular HGB Conc 33 gm/dL (32-36); Mean Corpuscular Hemoglobin 29 pg (26-34); Mean Corpuscular Volume 87 fL (80-100); Monocytes Percent Auto 6.2 % (0.0-11.0); Neutrophils Absolute Auto 5.26 K/uL (1.7-7.0); Platelet Count* 192 K/uL (140-440); RDW Coefficient of Variation % 13.3 % (11.5-15.5); Red Blood Count 6.27 m/uL (4.30-5.90); White Blood Count* 7.86 K/uL (4.50-11.00)
[2024-11-12 17:00] LABS: Slide Review Reflex No
[2024-11-12 17:11] LABS: Albumin* 4.8 g/dL (3.3-5.0); Chloride* 102 mmol/L (96-114); Potassium* 3.6 mmol/L (3.6-5.1); Sodium* 140 mmol/L (135-149)
[2024-11-12 17:14] LABS: Alanine Aminotransferase* 32 U/L (4-50); Alkaline Phosphatase* 37 U/L (40-150); Anion Gap 12 mEq/L (7-15); Aspartate Amino Transferase* 33 U/L (12-35); Bilirubin Direct* 0.2 mg/dL (0.0-0.5); Bilirubin Total* 2.9 mg/dL (0.1-1.5); Blood Urea Nitrogen* 16 mg/dL (7-30); Carbon Dioxide* 26 mmol/L (20-32); Creatinine* 1.5 mg/dL (0.5-1.5); Est. Creatinine Clearance* 69.12; Estimated Glomerular Filt Rate 55 ml/min; Total Protein* 7.7 g/dL (6.0-8.3)
[2024-11-12 17:15] LABS: Calcium* 9.3 mg/dL (8.4-10.6); Glucose* 152 mg/dL (60-115)
[2024-11-12 17:17] LABS: C Reactive Protein* 5.2 mg/dL (0.5-1.0)
[2024-11-12 17:27] LABS: Troponin I* < 0.01 ng/mL (0.01-0.04)
[2024-11-12 17:31] LABS: Procalcitonin* 1.14 ng/mL (<0.50)
[2024-11-12 17:32] LABS: PCR FLU A Negative PCR FLU A (Negative); PCR FLU B Negative PCR FLU B (Negative); PCR RSV Negative PCR RSV (Negative); SARS PCR* Negative SARS-CoV-2 (Negative)
--- NOTE | 2024-11-12 17:36 | CRLHL7_ITS ---
For Patients: As a result of the Century Cures Act, medical imaging exams and procedure reports are released immediately into your electronic medical record. You may view this report before your referring provider. If you have questions, please contact your health care provider. INDICATION: Fever, nausea, vomiting, blood in stool, history of sepsis TECHNIQUE: CT chest was performed with pulmonary angiographic technique. Subsequently, CT abdomen and pelvis with i.v. contrast, scanned during the venous phase. MIPS, coronal and sagittal reformats were obtained. CONTRAST: 135 mL Isovue 370 COMPARISON: None FINDINGS: CHEST: Cardiovascular: The pulmonary arteries are unremarkable in enhancement with no evidence of acute pulmonary embolism. The heart has an unremarkable appearance and size. No sign of aneurysm or dissection in the thoracic aorta. Mediastinum: No mass or adenopathy seen. Lung: There are 2 nodules present near the dome of the right middle lobe measuring up to 7 mm. Pleura and pericardium: No sign of pleural effusion seen. No significant pericardial effusion is present. Chest wall and axilla: No mass or adenopathy seen. ABDOMEN/PELVIS: Liver: Unremarkable. Spleen: Unremarkable. Pancreas: Unremarkable. Gallbladder: Previous cholecystectomy noted with no significant intra- or extrahepatic biliary ductal dilatation seen. Kidney: Unremarkable. No kidney or ureteral stones or obstruction seen. Adrenal: Unremarkable. Bowel: The stomach, small bowel, and colon are unremarkable. The appendix is normal in appearance and size. Vascular: Unremarkable. Lymph: Unremarkable. Peritoneum: Unremarkable. No pneumoperitoneum is seen. No significant ascites is noted. Pelvis: Unremarkable. Soft tissue: Unremarkable. Bone: Unremarkable for age. IMPRESSION: 1. There are 2 nodules present near the dome of the right middle lobe measuring up to 7 mm. Comparison with any prior outside imaging is recommended. If these cannot be obtained, follow up outpatient chest CT is recommended in 3 months. Dictated by Nasim Clark MD @ 11/12/2024 6:25:45 PM Please note that all CT scans at this facility use dose modulation, iterative reconstruction, and/or weight-based dosing when appropriate to reduce radiation dose to as low as reasonably achievable. Dictated by: Nasim Clark MD @ 11/12/2024 18:28:19 (Electronically Signed)
[2024-11-12] MEDS: LACTATED RINGERS 1000 ML 1,000 ML 500 ML IV (18:12)
[2024-11-12] MEDS: HYDROCORTISONE SOD SUCCINATE 50 MG/ML inj 100 MG IVP (18:12)
--- NOTE | 2024-11-12 19:07 | PM.IMHP1 ---
Assessment and Plan Assessment and plan (1) Sepsis: Problem comment: Sepsis indicators: Source of infection: AGE Sirs criteria is met with Elevated temp, elevated heart rate, elevated respiratory rate Organ dysfunction criteria is met with Systolic blood pressure less than 90, lactate greater than 2, bilirubin greater than 2 Status: Acute (2) Febrile illness, acute: Problem comment: -AGE - acute onset of vomiting/diarrhea. Norovirus likely. No stool since arrival. - On chronic prednisone and embrel; immunosuppressed; sepsis criteria met. - Zosyn ordered after cultures -monitor cultures; trend labs; advance diet as tolerated Status: Acute (3) Pituitary adenoma with extrasellar extension: Problem comment: Dx 04/2019, Surgery x 3. Follows with Dr. Myers in neurosurg annually 10/16/24 - Hypoenhancing pituitary neoplasm in the sella has minimally increased in size compared to 10/18/2023. No suprasellar mass effect or cavernous sinus extension. -levothyroxine, prednisone, growth hormone, testosterone replacement ongoing -[facility] endocrinology (Dr. 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 -RASHAUN - has followed with sleep medicine -polypharmacy Status: Acute (6) RASHAUN (obstructive sleep apnea): Problem comment: -did not tolerate CPAP Status: Acute (7) Hypothyroidism: Problem comment: synthroid replacement Status: Acute (8) Obesity: Status: Acute (9) Hypogonadism in male: Status: Acute (10) Visual field loss: Problem comment: resulted from pituitary surgery; peripheral Status: Acute Hospitalist- H&P: HPI History of Present Illness Date Seen: 11/12/24 Chief complaint: vomiting, bloody stool, headache, body aches Narrative: ADMISSION HISTORY AND PHYSICAL - HOSPITALIST Chief Complaint: Acute gastroenteritis HPI: 54-year-old white male who has several chronic medical conditions resulting in immunosuppression presents with his to the ER with an abrupt onset of vomiting and diarrhea. The does most of history. She states about 2:00 a.m. after a normal day yesterday she started feeling gurgly. He went to the bathroom and started passing multiple stools. He had several episodes of vomiting. She said she did see specks of blood in both his stool vomit but no active bleeding. She brought him in to the emergency room for further evaluation. She had not been ill nor did they have concerns about food poisoning or sick contacts. His medical history is complicated by a benign pituitary macro adenoma that was removed but created subsequent havoc for him. 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 He is on 4 types of hormone replacement (testosterone, growth hormone, levothyroxine, prednisone), he has significant RASHAUN, chronic headaches, hydrocephalus that required a RN LABOR AND DELIVERY shunt. He is on disability. 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 ER COURSE: Scans, labs, fluids. Essentially his scans looks normal. He had no vomiting or diarrhea throughout his ER evaluation. But given his tachycardia and other sepsis markers and his long medical history we thought admission and broad-spectrum antibiotics were in his best interest. CODE STATUS: FULL CODE EMERGENCY CONTACT PLAN: Estefania Miller Rel To Pat Cell ? I've updated the PFSH, medications and allergies in the Expanse tabs. INVESTIGATIONS: LABS/MICRO/ECG/IMAGING Febrile, upon arrival 102.4, 100.2 Soft blood pressures as low as 89/64, 95/62 Pulse 141, 110, 106 Respiratory rate has settled down, initially 28 down to 15 93% on room air 125 kilos CBC is normal, 7.86 with a normal differential Hemoglobin is higher than his baseline 14 up to 18, question hyperviscosity, hemoconcentration Platelet count is 192 Basic electrolyte panel is normal. However creatinine is up to 1.5 from a baseline of 1.3 Glucose 152 Lactate minimally elevated at 2.1 Total bilirubin 2.9, normal LFTs Troponin undetectable CRP minimally elevated at 5.2, procalcitonin 1.14 Negative SARs, influenza, RSV Two blood cultures have been drawn EKG - on arrival in the ED, sinus tachy @136 artifact overread as STEMI will repeat upon arrival to the floor CT CHEST/ABD/PELVIS - essentially unremarkable There are 2 nodules present near the dome of the right middle lobe measuring up to 7 mm. Comparison with any prior outside imaging is recommended. If these cannot be obtained, follow up outpatient chest CT is recommended in 3 months. REVIEW OF SYSTEMS: 12-point ROS completed with patient and negative unless otherwise stated in HPI or below. PHYSICAL EXAM: CONSTITUTIONAL: looks flushed, alert and seems pretty comfortable. GENERAL: Well-developed and above ideal body weight, in no respiratory distress. VITAL SIGNS: see record. HEENT: Sclerae are anicteric. No petechiae. CARDIAC: rhythm is regular. There is no S3 or rub. No harsh murmurs. Extremities show trace edema with symmetrical pulses. PULM: good air entry with no wheeze. ABDOMEN: soft, obese. NEURO: Speech is fluent. A brief neurologic exam is negative. SKIN: No rashes, petechiae, concerning changes PSYCHIATRIC: Euthymic. ADMIT TO MEDSURG: FLOOR CARE DVT: Lovenox (starting tomorrow night, if still here) GI: PO intake Time spent: Today I spent 75 minutes seeing the patient, discussing the patient with ER staff, reviewing Expanse and EPIC notes/diagnostics, discussing the care plan with our care time that includes social work, PT/OT, pharmacy, RT, care home and documenting my impressions and plan in the medical record. MEDICAL NECESSITY FOR HOSPITALIZATION Anticipated midnights in the hospital: 2 Admitting diagnosis: sepsis, AGE Risk of morbidity and mortality: moderate Acuity is characterized as high and reflected in: immunosuppression, seizure disorder This patient will require hospital services as outlined in the assessment and plan in order to stabilize and be safely discharged to a lower level of care. Because of the risk and acuity as described above, this patient cannot be managed at a lower level of care. LENGTH OF STAY: 2 IP ? Anticipated LOS>2 midnights due to acuity of clinical presentation requiring inpatient level of care [facility] Medical History (Updated 11/12/24 @ 20:44 by Stella Blackwell MD) Metabolic syndrome ?E88.81 - Metabolic syndrome (ICD-10) Chronic headaches ?R51.9 - Headache, unspecified (ICD-10) ?G89.29 - Other chronic pain (ICD-10) Hx of skin cancer, basal cell ?Z85.828 - Personal history of other malignant neoplasm of skin (ICD-10) Family history of pancreatic cancer ?Z80.0 - Family history of malignant neoplasm of digestive organs (ICD-10) Family history of diabetes mellitus ?Z83.3 - Family history of diabetes mellitus (ICD-10) Family history of prostate cancer ?Z80.42 - Family history of malignant neoplasm of prostate (ICD-10) Hypertension ?I10 - Essential (primary) hypertension (ICD-10) Surgical History (Updated 11/12/24 @ 19:12 by Stella Blackwell MD) S/P ERCP ?Z98.890 - Other specified postprocedural states (ICD-10) 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) S/P rotator cuff surgery ?Z98.890 - Other specified postprocedural states (ICD-10) S/P RN LABOR AND DELIVERY shunt ?Z98.2 - Presence of cerebrospinal fluid drainage device (ICD-10) S/P cholecystectomy ?Z90.49 - Acquired absence of other specified parts of digestive tract (ICD-10) S/P cataract extraction ?Z98.49 - Cataract extraction status, unspecified eye (ICD-10) Family History Other Diabetes Pancreatic cancer Prostate cancer Social History Smoking Status: Never smoker Do you use any of these nicotine containing products: None Second hand tobacco smoke exposure: No How often do you have a drink containing alcohol: 2-4 times a month How often do you have six or more drinks on one occasion: Never AUDIT-C Alcohol total score: 2 Non-prescribed substance use: denies use service: No Meds Home Medications and Allergies Home Medications ?Medication ?Instructions ?Recorded ?Confirmed ?Type prednisone 20 mg tablet 20 mg PO QDAY 04/24/23 11/12/24 History rizatriptan 10 mg tablet mg PO 07/29/24 History Allergies Allergy/AdvReac Type Severity Reaction Status Date / Time sumatriptan (From Imitrex) Allergy Severe horribly Verified 11/12/24 18:05 sick Exam Const: Vital Signs, click to edit/add: Vital Signs - 24 hr 11/12/24 15:52 11/12/24 16:45 11/12/24 16:46 Temperature 102.4 F H Pulse Rate Pulse Rate [Pulse Oximeter] 140 H Respiratory Rate 20 22 Blood Pressure Blood Pressure [Ri ght Upper Arm] 106/82 Pulse Oximetry 98 92 92 Oxygen Delivery Me thod Room Air Room Air 11/12/24 17:00 11/12/24 17:15 11/12/24 17:17 Temperature Pulse Rate Pulse Rate [Pulse Oximeter] 118 H 116 H Respiratory Rate 28 H 24 25 H Blood Pressure Blood Pressure [Ri ght Upper Arm] 115/82 116/73 Pulse Oximetry 91 92 92 Oxygen Delivery Ga thod 11/12/24 17:30 11/12/24 17:31 11/12/24 17:46 Temperature Pulse Rate 112 H Pulse Rate [Pulse Oximeter] Respiratory Rate 26 H 24 22 Blood Pressure 122/74 113/73 Blood Pressure [Ri ght Upper Arm] Pulse Oximetry [facility] 18:16 11/12/24 18:17 11/12/24 18:18 Temperature 100.2 F H Pulse Rate 111 H 110 H 111 H Pulse Rate [Pulse Oximeter] Respiratory Rate 23 23 17 Blood Pressure 89/64 L 94/61 93/59 L Blood Pressure [Ri ght Upper Arm] Pulse Oximetry 93 91 94 [facility]/12/24 18:31 Temperature Pulse Rate 106 H Pulse Rate [Pulse Oximeter] Respiratory Rate 15 Blood Pressure 95/62 Blood Pressure [Ri ght Upper Arm] Pulse Oximetry 93 [facility] - H&P: Result Labs Labs: Short CBC 11/12/24 Range/Units 16:30 WBC 7.86 (4.50-11.00) K/uL Hgb 18.0 H (13.5-17.5) gm/dL Hct 54.3 H (37.0-53.0) % Plt Count 192 (140-440) K/uL BMP 11/12/24 16:30 Sodium 140 Potassium 3.6 Chloride 102 Carbon Dioxide 26 BUN 16 Creatinine 1.5 Glucose 152 H Calcium 9.3 Cardiac Enzymes 11/12/24 Range/Units 16:30 Troponin I < 0.01 (0.01-0.04) ng/mL Liver Function 11/12/24 Range/Units 16:30 Total Bilirubin 2.9 H (0.1-1.5) mg/dL Direct Bilirubin 0.2 (0.0-0.5) mg/dL AST 33 (12-35) U/L ALT 32 (4-50) U/L Alkaline Phosphatase 37 L (40-150) U/L Albumin 4.8 (3.3-5.0) g/dL
--- OUTSIDE RECORDS SUMMARY | 2024-11-12 19:46 | XMS_ITS | Clinical Summary ---
Author Organization [facility] Address [address] , [address] [place] [address] Phone Care Team Providers Care Heart Coordinator Name Role Phone [facility] Unavailable Unava ilable Conditions or Problems Problem Name Problem Code Onset Date Status Entry Date Provider Comment Standard Description Annotate Spells 08959557 (SNOMED CT) 03/05 Active 03/05 Maribel Maciel MD Stupor Chronic migraine 311479839 (SNOMED CT) 03/05 Active 03/05 Maribel Maciel MD Transformed migraine HEADACHE 07564157 (SNOMED CT) 11/13 Active 11/13 Maribel Maciel MD Headache Transient neurological symptoms 902285082 (SNOMED CT) 11/13 Active 11/13 Maribel Maciel MD Transient neurological symptoms Vision changes 36810992 (SNOMED CT) 08/09 Active 11/11 Umm Rakow Disorder of vision Imported from [facility]: [employer] ( 4 at 08:35:00 AM) Syncope 636336938 (SNOMED CT) 04/25 Active 11/11 Umm Rakow Syncope Imported from [facility]: [employer] ( 4 at 08:35:00 AM) Sepsis 38548651 (SNOMED CT) 09/29 Active 11/11 Umm Rakow Sepsis Imported from [facility]: [employer] ( 4 at 08:35:00 AM) Secondary adrenal insufficienc y 40160200 (SNOMED CT) 09/29 Active 11/11 Umm Rakow Hypocortisolism secondary to another disorder Imported from [facility]: [facility] [employer] [facility] ( 4 at 08:35:00 AM) S/P ventriculope ritoneal shunt Z98.2 (ICD-10-CM ) 09/29 Active 11/11 Umm Rakow Presence of cerebrospinal fluid drainage device Imported from [facility]: [facility] [employer] [facility] ( 4 at 08:35:00 AM) S/P craniotomy Z98.890 (ICD-10-CM ) 09/29 Active 11/11 Umm Rakow Other specified postprocedural states Imported from A: [facility] [employer] 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 [employer] [facility] ( 4 at 08:35:00 AM) Obstructive hydrocephalu s 116326078 (SNOMED CT) 09/29 Active 11/11 Umm Rakow Obstructive hydrocephalus Imported from [facility]: [facility] [employer] [facility] ( 4 at 08:35:00 AM) Hyponatremia 98520616 (SNOMED CT) 08/09 Active 11/11 Umm Rakow Hyponatremia Imported from [facility]: [facility] [facility] [employer] [facility] ( 4 at 08:35:00 AM) Hypertension 72776689 (SNOMED CT) 09/29 Active 11/11 Umm Rakow Hypertensive disorder Imported from [facility]: [facility] [employer] [facility] ( 4 at 08:35:00 AM) Headache 91544449 (SNOMED CT) 09/29 Active 11/11 Umm Rakow Headache Imported from [facility]: [facility] [employer] [facility] ( 4 at 08:35:00 AM) Growth hormone deficiency E23.0 (ICD-10-CM ) 10/07 Active 11/11 Umm Freire Hypopituitarism Imported from [facility]: [facility] ( 4 at 08:35:00 AM) Elevated LFTs R79.89 (ICD-10-CM ) 02/23 Active 11/11 Umm Freire Other specified abnormal findings of blood chemistry Imported from [facility]: [facility] [employer] [facility] ( 4 at 08:35:00 AM) Common bile duct calculus 110648851 (SNOMED CT) 02/25 Active 11/11 Umm Freire Common bile duct calculus Imported from [facility]: [facility] [employer] [facility] ( 4 at 08:35:00 AM) Medications Medication Instructions Start Date Stop Date Generic Name NDC Provider LEVETIRACETAM ER 750 MG [id number] Take 1 tablet by mouth once a day for 7 days, then take 2 tablet by mouth once a day 03/05 levetiracetam [id number] Maribel Maciel MD LEVETIRACETAM ER 750 MG [id number] TAKE 1 TABLET BY MOUTH ONCE A DAY FOR 7 DAYS, THEN TAKE 2 TABLET BY MOUTH ONCE A DAY 10/07 levetiracetam [id number] Maribel Maciel MD AZATHIOPRINE 50 MG TABS TAKE 2 TABLETS BY MOUTH DAILY azathioprine 84496406265 Maribel Maciel MD LAMOTRIGINE ER 50 MG [id number] Take 3 tablet by mouth once a day for 7 days, then take 4 tablet by mouth once a day for 7 days, then take 5 tablet by mouth once a day for 7 days 08/20 lamotrigine 62252197550 Maribel Maciel MD LAMOTRIGINE ER 25 MG [id number] Take 1 tablet by mouth once a day for 14 days, then take 2 tablet by mouth once a day for 14 days, then take 4 tablet by mouth once a day 08/20 lamotrigine [id number] Maribel Maciel MD LAMOTRIGINE ER 300 MG [id number] Take 1 tablet by mouth once a day 08/20 lamotrigine 60139161094 Maribel Maciel MD RIZATRIPTAN BENZOATE 10 MG TABS Take 1 tab po at the onset of migraine. Ok to repeat in 2 hours. Do not exceed 2 tabs in 24 hours. Max 9 tablets/month 08/23 rizatriptan [id number] Maribel Maciel MD NURTEC 75 MG TBDP Take 1 tablet by mouth as directed Take 1 tab at onset of migraine. Do not take more than 1 tablet in a 24-hour period. 08/11 rimegepant [id number] Maribel WOODRUFFGOVY 0.5 MG/0.5ML SOAJ INJECT 0.5 MG SUBCUTANEOUS ONCE WEEKLY. THEN INCREASE TO 1 MG WEEKLY AFTER 4 WEEKS. 06/11 semaglutide (weight loss) 72703336775 Maribel Maciel MD HYDROXYCHLOROQUINE SULFATE 200 MG TABS 06/11 hydroxychloroquine 54035850512 Maribel Maciel MD ENBREL SURECLICK 50 MG/ML SOAJ etanercept [id number] Maribel WOODRUFFGOVY 2.4 MG/0.75ML SOAJ semaglutide (weight loss) 28712198735 Maribel Maciel MD PROPRANOLOL HCL ER 60 MG [id number] TAKE 1 CAPSULE BY MOUTH EVERY DAY 11/22 propranolol 64847648130 Maribel Maciel MD PROPRANOLOL HCL ER 60 MG [id number] TAKE 1 CAPSULE BY MOUTH EVERY DAY 04/21 propranolol 74818449419 Maribel Maciel MD EMGALITY 120 MG/ML SOAJ Loading dose of 2 injections the first month 03/05 galcanezumab-[facility] [id number] Maribel Maciel MD EMGALITY 120 MG/ML SOAJ Inject 1 pen injector subcutaneously once a month as directed (after first months loading dose) 20203/05 galcanezumab-[facility] [id number] Maribel Maciel MD AJOVY 225 MG/1.5ML SOAJ 1 sq q 28 days 03/26 fremanezumab-[facility] [id number] Maribel Maciel MD EMGALITY 120 MG/ML SOAJ Inject 1 pen injector subcutaneously once a month as directed (after first months loading dose) 03/05 galcanezumab-[facility] [id number] Maribel Maciel MD EMGALITY 120 MG/ML SOAJ Loading dose of 2 injections the first month 03/05 galcanezumab-[facility] [id number] Maribel Maciel MD LEVETIRACETAM ER 750 MG [id number] Take 1 tablet by mouth once a day for 7 days, then take 2 tablet by mouth once a day 03/05 levetiracetam 23915552010 Maribel Maciel MD PROCHLORPERAZINE MALEATE 10 MG TABS 03/05 prochlorperazine maleate 56680415555 Maribel Maciel MD PHENTERMINE HCL 37.5 MG CAPS TAKE 1 CAPSULE BY MOUTH DAILY; ADMINISTER 30 MINUTES BEFORE OR 1-2 HOURS AFTER BREAKFAST 03/05 phentermine 11121320821 Maribel Maciel MD NORDITROPIN FLEXPRO 10 MG/1.5ML SOPN somatropin 35867927517 Maribel Maciel MD WEGOVY 0.5 MG/0.5ML SOAJ INJECT 0.5 MG SUBCUTANEOUS ONCE WEEKLY. THEN INCREASE TO 1 MG WEEKLY AFTER 4 WEEKS. 06/11 semaglutide (weight loss) 43157497997 Maribel Maciel MD TOPIRAMATE 50 MG TABS Take 1 tablet by mouth once a day x 1 week; then take 1 tablet twice a day x 1 week; then take 2 tablets in the morning and take 1 tablet in the evening x 1 week; then take 2 tablets twice a day 11/13 topiramate [id number] Maribel Maciel MD PROPRANOLOL HCL ER 60 MG [id number] TAKE 1 CAPSULE BY MOUTH EVERY DAY 11/22 propranolol [id number] Maribel Maciel MD TOPIRAMATE 50 MG TABS Take 1 tablet by mouth once a day x 1 week; then take 1 tablet twice a day x 1 week; then take 2 tablets in the morning and take 1 tablet in the evening x 1 week; then take 2 tablets twice a day 11/13 topiramate 77457787775 Maribel Maciel MD TOPIRAMATE 50 MG TABS 1 po qday x 1 week, 1 po BID x 1 week then 2 po qam x 1 week then 2 po BID 11/13 topiramate 10809248257 Maribel Maciel MD METHOTREXATE SODIUM 2.5 MG TABS 11/13 methotrexate sodium 58832509569 Maribel Maciel MD HYDROCORTISONE 10 MG TABS hydrocortisone 70679793665 Maribel Maciel MD TESTOSTERONE CYPIONATE 200 MG/ML SOLN INJECT 150 MG (0.75 ML) INTRAMUSCULARLY EVERY 2 WEEKS testosterone cypionate 74613781985 Maribel Maciel MD PHENTERMINE HCL 37.5 MG CAPS TAKE 1 CAPSULE BY MOUTH DAILY; ADMINISTER 30 MINUTES BEFORE OR 1-2 HOURS AFTER BREAKFAST 03/05 phentermine 41761527765 Maribel Maciel MD TRAZODONE HCL 150 MG TABS trazodone 34975755626 Maribel Maciel MD HYDROXYCHLOROQUINE SULFATE 200 MG TABS 06/11 hydroxychloroquine 20018439893 Maribel Maciel MD METHOTREXATE SODIUM 2.5 MG TABS 11/13 methotrexate sodium 71797504268 Maribel Maciel MD TIZANIDINE HCL 4 MG TABS tizanidine 48530518540 Maribel Maciel MD FOLIC ACID 1 MG TABS TAKE 1 TABLET DAILY folic acid 21658642083 Maribel Maciel MD LEVOTHYROXINE SODIUM 137 MCG TABS levothyroxine 85336452618 Azeem Maciel MD PROCHLORPERAZINE MALEATE 10 MG TABS 03/05 prochlorperazine maleate 29950047095 Maribel Maciel MD Medications Administered No information [...] Rec X SMOK STATUS never smoker 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 Procedure: Occipital Nerve B lock [...] Follow up telemedicine 06/11 ORDERS Patient Instructions 14871// EEG 26hr (all ages) 202 11/14/05 CPT-02568 EEG Setup CPT-67487 Video EEG 26hrs 1min-36hrs () 4 CPT-21186 Video EEG 26hrs 1min-36hrs ([place]) CPT-78898 Video EEG 26hrs 1min-36hrs ()* CPT-67753 Video EEG 26hrs 1min-36hrs (Tech)* / ORDERS Follow up telemedicine 03/05 CPT-G2211 Complex e/m visit add on 202 11/10/30 ORDERS Follow up ORDERS Patient Instructions CPT-65193 EEG (AWAKE/DROWSY) (END) 202 11/08/00 [address] [place] [address] EEG (40min) ORDERS Patient Instructions 22113/18428 Occipital Nerve Block Injection 0 CPT-96266 Occipital nerve bloc k (Greater ONB) unilateral CPT-52968 Lesser ONB/3rd ONB/Auricular/Preauricular,unilateral CPT-J1100 Dexamethasone -- 10 mg 11/13 [id number] Documentation of current medicatio ns Vital Signs [...]
--- OUTSIDE RECORDS SUMMARY | 2024-11-12 19:46 | XMS_ITS | Clinical Summary ---
Author Organization [facility] Address [address] [place] [address] Care Team Providers Care Traffic Court Referee Name Role Phone Salinas Blum MD Primary Care Provider [phone] Robin Martinez MD Unavailable [phone] Allergies Active Allergy Reactions Criticality Noted Date [...] [facility] [address] [place] [phone] Ignacio Myers MD Follow Up (Clinic Appt S/p 02/18/20 iMRI crani FT R adenoma & 11/08/22 removal OcR VPS.. ~1 yr interval surveillance. 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 Gender Identity Male 05/27/2020 7:59 AM CDT Sexual Orientation Straight 05/27/2020 7: 59 AM CDT Occupation Industry Job Start Date Job End Date 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 [employer] Not on file Not on file Not [...] Completed 02/24/2020 Medical Devices Implanted Type Area Heat Treating Furnace Tender Device Identifier Shelf Expiration Date Model / Serial / Lot Implnt Transphenoidal Sellar Porex - [id number] Implanted:Qty: 1 on 04/24/2019 by Ignacio Myers MD at [facility] N/A: Cranium [place] Craniomaxillofacial 08/05/2028 [id number]# / / [id number] Valve Neuro Micro Hakim W/ Leoti - [id number] Implanted:Qty: 1 on 05/02/2019 by Ignacio Myers MD at [facility] Right: Cranium [employer] Everytime Jamie 09/05/2023 [id number]# / / [id number] Implnt Transphenoidal Sellar Porex - [id number] Implanted:Qty: 1 on 08/08/2019 by Ignacio Myers MD at [facility] N/A: Cranium [place] Craniomaxillofacial [id number]# / / Screw Neuro 4mm Matrixneuro Slf Drill Titnm - [id number] Implanted:Qty: 16 on 02/18/2020 by Ignacio Myers MD at [facility] Right: Cranium J And J Depuy CMF 04.503.1 04.01# / / Screw Neuro 5mm Matrixneuro Slf Drill Titnm - [id number] Implanted:Qty: 2 on 02/18/2020 by Ignacio Myers MD at [facility] Right: Cranium J [employer] Depuy CMF 04.503.1 05.01# / / Plate Facial 12mm 2hole Synthes Stra - [id number] Implanted:Qty: 1 on 02/18/2020 by Ignacio Myers MD at [facility] Right: Cranium J [employer] Depuy CMF 421.502# / / Kitty Hole Cover Neuro 24mm Synthes Low Pro Titnm - [id number] Implanted:Qty: 3 on 02/18/2020 by Ignacio Myers MD at [facility] Right: Cranium J And J Depuy CMF 421.528# / / Dura Neuro 2x2in Durepair Sut - [id number] Implanted:Qty: 1 on 02/18/2020 by Ignacio Myers MD at [facility] Right: Cranium [employer] 04/05/2022 21406# / / [id number] Implnt Pterional Rt - [id number] Implanted:Qty: 1 on 02/18/2020 by Ignacio Myers MD at [facility] Right: Cranium [place] Craniomaxillofacial 10/04/2027 9864# / / [id number] Procedures Procedure Name Priority Date/Time Associated Diagnosis [...] righttemporal operculum. Stable subjacent dural thickening. Hypoenhancing, [id number] within the sella measuring 13 x 8 [...] ANTIBODY Non-Reactive Non-Reactive 02/24/2020 3:30 PM CDT [facility] Comment:Antibodies to HCV no t detected; does not exclude the possibility of exposure to HCV. IGM ANTI HAV Non-Reactive Non-Reactive 02/24/20 3:30 PM CDT [facility] HBSAG Nonreactive Nonreactive 02/24/2020 3:30 PM CDT [facility] IGM ANTI HBC Non-Reactive Non-Reactive 02/24/20 3:30 PM CDT [facility] Blood BLOOD SPECIMEN / Unknown Venipuncture / Unknown 02/24/2020 6:22 AM CDT 02/24/2020 6:39 AM CDT Narrative [facility] - 02/24/2020 3:30 PM CDT Anti-HBc IgM not detected. Does not exclude the possibility of exposure to or infection with HBV. Emma Stearns NP SEND OUTS Final Result [facility] [address] [place] [address], [place] from Last 3 Months or Most [...] 6:06 AM 08/11/2019 3:[address] Referee Relationship Specialty Start Date End Date Salinas Blum MD PCP - General 10/08/09 Robin Martinez MD [address] [facility] [address] [address] Endocrinology 03/06/23
--- OUTSIDE RECORDS SUMMARY | 2024-11-12 19:46 | XMS_ITS | Clinical Summary ---
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 For routine questions regarding patient records, call [phone] during business hours, M-F 8:00 AM - 5:00 PM Central Time. Record requests for emergency care only can be directed to [phone] at any time.[facility] Allergies Active Allergy Reactions Criticality Noted Date Comments Sulfasalazine Itching 09/29/2023 Sumatriptan Other (see comments) 11/07/2022 Horribly sick Medications desmopressin (DDAVP) 0.1 mg tablet Take 0.5 tablets by mouth at bedtime. 02/25/20 21 Active hydrocortisone (CORTEF) 10 mg tablet 60 mg in the AM; 30 mg at lunch since 09/22/23. 01/27/20 21 Active testosterone cypionate (DEPO-TESTOSTER ONE) 200 mg/mL injection Inject 150 mg intramuscularly as directed. Every two weeks 11/17/19 21 Active potassium 99 mg tablet Take 1 tablet by mouth daily. Active SUMAtriptan (IMITREX) 100 mg tablet Take 1 tablet (100 mg total) by mouth as needed for migraine. May repeat dose once in 2 hours if migraine unresolved. Do not exceed 200 mg in 24 hours. 9 tablet 5 03/01/20 21 Active Additional Information Patient not taking.Reported on 09/29/2023 levothyroxine (SYNTHROID, LEVOTHROID) 150 mcg tablet Take 1 tablet (150 mcg total) by mouth every morning before breakfast. 90 tablet 3 03/14/20 21 Active Additional Information Patient taking differently: 137 mcgoral Daily before morning meal,At NIGHT, Reported on 09/29/2023 dexAMETHasone (DECADRON) 4 mg/mL injection Inject 1 mL (4 mg total) intramuscularly as directed. Inject 1 ML IM when unable to take oral steroids 1 mL 3 03/15/20 21 Active DME CPAPIndications :Apnea Sleep Obstructive DME Order 1 each 07/20/20 21 Active hydroxychloroqu ine (PLAQUENIL) 200 mg tablet Take 200 mg by mouth. Active phentermine (ADIPEX-P) 37.5 mg capsule Take 37.5 mg by mouth daily. Active traZODone (DESYREL) 150 mg tablet Take 150 mg by mouth at bedtime. Active tiZANidine (ZANAFLEX) 4 mg tablet Take 4 mg by mouth at bedtime. Active methotrexate 2.5 mg tablet Take 2.5 mg by mouth once a week. Takes on MONDAYS: 8 tablets total at 2.5 mg each. Active diphenhydrAMINE (BENADRYL) 50 mg capsule Take 50 mg by mouth at bedtime. Active melatonin 5 mg tablet Take 10 mg by mouth as needed (At bedtime). Active aspirin [address] tablet Take 80 mg by mouth daily. Active acetaminophen (TYLENOL) 500 mg tablet Take 650 mg by mouth every 6 (six) hours as needed for pain. 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 Immunizations Immunization Administration Dates Next Due DT, Pediatric 03/22/1989 Tdap 02/17/2013 Family History Medical History Relation Name Comments Hypertension Brother 1 Albert Miller Hypertension Brother 2 Neftaly Miller Retinal degeneration Brother 2 Neftaly Miller Diabetes Brother 3 Jamie Miller Hypertension Brother 3 Jamie Miller Retinal degeneration Brother 3 Jamie Miller Diabetes Father Josue Miller Pancreatic cancer Father Josue Miller Skin cancer Mother Didi Miller Relation Name Status Comments Brother 1 Albert Miller Brother 2 Neftaly Miller Brother 3 Jamie Miller Father Josue Miller Mother Didi Miller Social History Tobacco Use Types Packs/Day Years Used Date Smoking Tobacco: Never Smokeless Tobacco: Never Alcohol Use Standard Drinks/Week Comments Not Currently 0 (1 standard drink = 0.6 oz pur e alcohol) Humiliation, Afraid, Rape, and Kick questionnair e Answer Date Recorded Within the last year, have y ou been afraid of your partner or ex-partner? No 02/23/2021 Within the last year, have y ou been humiliated or emotionally abused in other ways by your partner or ex-partner? No Within the last year, have y ou been kicked, hit, slapped, or otherwise physically hurt by your partner or ex-partner? No 02/23/2021 Within the last year, have y ou been raped or forced to have any kind of sexual activity by your partner or ex-partner? No 02/23/2021 Social Connection and Isolat ion Panel [NHANES] Answer Date Recorded In a typical week, how many times do you talk on the phone with family, friends, or neighbors? More than three times a week 02/23/2021 How often do you get togethe r with friends or relatives? More than three times a week 02/23/2021 How often do you attend chur or druze services? More than 4 times per year 02/23/2021 Do you belong to any clubs o r organizations such as yazidi groups, unions, fraternal or athletic groups, or school groups? Yes 02/23/2021 How often do you attend meet ings of the clubs or organizations you belong to? Never 02/23/2021 Are you , , di vorced, , never , or living with a partner? 02/23/2021 AUDIT-C Answer Date Recorded Q1: How often do you have a drink containing alc ohol? Never 02/23/2021 Average Number of Drinks Not on file 021 Frequency of Binge Drinking Not on file 02/04 Overall Financial Resource Strain (CARDIA) Answe r Date Recorded How hard is it for you to pa y for the very basics like food, housing, medical care, and heating? Somewhat hard 02/23/2021 PHQ-2 Answer Date Recorded PHQ-2 Score 1 04/01/2021 [facility] - Occupational Stress Questionnaire Answer Date Recorded Do you feel stress - tense, restless, nervous, or anxious, or unable to sleep at night because your mind is troubled all the time - these days? To some extent 02/23/2021 Exercise Vital Sign Answer Date Recorde d On average, how many days pe r week do you engage in moderate to strenuous exercise (like a brisk walk)? 0 days 02/23/2021 On average, how many minutes do you engage in exercise at this level? 0 min 02/23/2021 Hunger Vital Sign Answer Date Recorded Within the past 12 months, y ou worried that your food would run out before you got the money to buy more. Never true 02/24/20 21 Within the past 12 months, t he food you bought just didn't last and you didn't have money to get more. Never true 02/23/2021 PRAPARE - Transportation Answer Date Re corded In the past 12 months, has l ack of transportation kept you from medical appointments or from getting medications? No 02/04 In the past 12 months, has l ack of transportation kept you from meetings, work, or from getting things needed for daily living? No 02/23/2021 Housing Stability Vital Sign Answer Tristin e Recorded In the last 12 months, was t here a time when you were not able to pay the mortgage or rent on time? No 02/23/2021 In the last 12 months, how many places have you lived? 1 02/23/2021 In the last 12 months, was t here a time when you did not have a steady place to sleep or slept in a assisted (including now)? No 02/23/2021 Depression Answer Date Recor ded PHQ-9 Total Score (max 27) 9 04/01 Nutrition Answer Date Recorded Nutrition: EVOO Fat Source No 02/23 On average, how many serving s of fruits and vegetables do you eat per day (serving size is equal to 1 cup or approximately the size of a tennis ball)? 0-1 02/23/2021 Dental Answer Date Recorded Dental: Regular Dentist Unknown 02/24/20 Employment Answer Date Recorded Employment status Temporarily disabled Education Answer Date Recorded What is the highest level of school you have completed or the highest degree you have received? 12th grade 02/23/2021 Sex and Gender Information Value Date Recorded Sex Assigned at Male 05/17/2021 7:50 AM CDT Legal Sex Male 2:18 PM CDT Gender Identity Male 02/24/2021 10:49 PM CDT Sexual Orientation Straight 02/24/2021 10 :49 PM CDT Last Filed Vital Signs Vital Sign Reading Time Taken Comments Blood Pressure 108/85 09/29/2023 3:45 PM PAPER FOLDER Pulse 108 09/29/2023 3:45 PM PAPER FOLDER Temperature 36.8 C (98.2 F) 09/29/2023 2:27 PM PAPER FOLDER Respiratory Rate 20 09/29/2023 3:45 PM PAPER FOLDER Oxygen Saturation 97% 09/29/2023 3:45 PM PAPER FOLDER Inhaled Oxygen Concentration - - Weight 123 kg (271 lb 14.4 oz) 09/29/2023 5:04 A M PAPER FOLDER Height 194 cm (6' 4.38) 04/01/2021 12:47 PM CDT Body Mass Index 32.77 04/01/2021 12:47 PM CDT Plan of Treatment Health Maintenance Due Date Last Done Comments CT Colonography 1970 Cologuard 1970 Colonoscopy 1970 Colorectal Cancer Screening 1970 FIT 1970 HIV Screening 1970 Hepatitis C Screening 1970 Office Visit for Blood Pressure Check / Re-check 1970 Hepatitis A Vaccines (1 of 2 - Risk 2-dose series) 1989 Hepatitis B Vaccines (1 of 3 - 19+ 3-dose series) 1989 Pneumococcal vaccine (50+ years) (1 of 2 - PCV) 1989 Zoster Vaccines (1 of 2) 1989 Thyroid Stimulating Hormone (TSH) test for thyroid function 03/01/2022 03/01/2021, 12/05/2019, 09/01/2019, Additional history exists DTaP,Tdap,and Td Vaccines (3 - Td or Tdap) 02/17/2023 02/17/2013, 03/22/1989 COVID-19 Vaccine (3 - 2023- season) 2024 07/20/2021, 10/21/2020 Influenza Vaccine (#1) 2024 Depression Screening (Annual PHQ-2) 08/06/2024 Lipid (Cholesterol) Screening 03/01/2026 03/01/2021 Fasting Glucose for Diabetes Screening 01/28/2027 01/29/2024, 09/30/2023, 09/29/2023, Additional history exists HPV Vaccines Aged Out No longer eligi ble based on patient's age to complete this topic IPV Vaccines Aged Out No longer eligi ble based on patient's age to complete this topic Medical Devices Implanted Type 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 Device Identifier Shelf Expiration Date Model / Serial / Lot Hakim Programmable Ventricular Shunt-05/02/2019 Implanted:05/02 (Quantity not on file) Programmable Ventricular Shunt N/A: Brain Codman 09/05/2023 / / [id number] Description:See Media tab fo r uploaded photo of device card on 03/08/2021 / [id number] /Nahomy Wilsonkin / programmable Procedures Procedure Name Priority Date/Time Associated Diagnosis Comments BASIC METABOLIC PANEL, S/P STAT 09/29/2023 5:20 AM PAPER FOLDER LIPID PANEL, S Routine 03/01/2021 7:01 AM CDT Hypothyroidism THYROID FUNCTION CASCADE, S Routine 03/01/2021 7:01 AM CDT Adenoma Pituitary Gonadotrophin Secretin (HCC) from Last 3 Months or Most Recently Relevant to Health Maintenance Results * (ABNORMAL) Basic Metabolic Panel (09/29/2023 5:20 AM PAPER FOLDER) Potassium, P 3.8 3.6 - 5.2 mmol/L 09/29/2023 6:04 AM PAPER FOLDER NPRG Sodium, P 144 135 - 145 mmol/L 09/29/2023 6:04 AM PAPER FOLDER NPRG Chloride, P 104 98 - 107 mmol/L 09/29/2023 6:04 AM PAPER FOLDER NPRG Bicarbonate, P 29 22 - 29 mmol/L 09/29/2023 6:04 AM PAPER FOLDER NPRG Anion Gap, P 11 7 - 15 09/29/2023 6:04 AM PAPER FOLDER NPRG BUN (Blood Urea Nitrogen), P 14 8 - 24 mg/dL 09/29/2023 6:04 AM PAPER FOLDER NPRG Creatinine 1.36(H) 0.74 - 1.35 mg/dL 09/29/2023 6:04 AM PAPER FOLDER NPRG Estimated GFR (eGFR) 63 >=60 mL/min/BSA 09/29/2023 6:04 AM PAPER FOLDER NPRG Comment: Estimated GFR calculated using the 2020 CKD_EPI creatinine equation. Calcium, Total, P 8.8 8.6 - 10.0 mg/dL 09/29/2023 6:04 AM PAPER FOLDER NPRG Glucose, P 156(H) 70 - 140 mg/dL 09/29/2023 6:04 AM PAPER FOLDER NPRG Blood (Blood, Venous) 09/29/2023 5:20 AM PAPER FOLDER 09/29/2023 5:44 AM PAPER FOLDER us Abraham Noel M.D. LAB BLOOD ADD-ON Final Resu lt [facility] [address] [place] [address], [facility] NPRG [facility] [address] [place] [address] * (ABNORMAL) Lipid Panel (03/01/2021 7:01 AM CDT) [facility] Cholesterol, Total 145 mg/dL 2020 8:31 AM CDT DTL Comment: ----REFERENCE VALUE---- Desirable: < 200 Borderline high: 200 - 239 High: > or = 240 Triglycerides 141 mg/dL 03/01/2021 8:31 AM CDT DTL Comment: ----REFERENCE VALUE---- Normal: <150 Borderline high: 150-199 High: 200-499 Very high: > or =500 Cholesterol, HDL, S 24(L) >=40 mg/dL 03/01/2021 8:31 AM CDT DTL Calculated LDL 93 mg/dL 03/01/2021 8:31 AM CDT DTL Comment: ----REFERENCE VALUE---- Desirable: <100 Above Desirable: 100-129 Borderline high: 130-159 High: 160-189 Very high: > or =190 Cholesterol, Non-HDL, Calculated 121 mg/dL 03/01/2021 8:31 AM CDT DTL Comment: ----REFERENCE VALUE---- Desirable: <130 Above Desirable: 130-159 Borderline high: 160-189 High: 190-219 Very high: > or =220 Blood (Blood, Venous) 03/01/2021 7:01 AM CDT 03/01/2021 7:27 AM CDT Guerrero Chan M.D. LAB BLOOD ADD-ON Final Re sult Performing Organization Address City/[facility]/ZIP Co de Phone Number [facility] [address] [place] [address], [facility] [address] [place] [address] * (ABNORMAL) Thyroid Function [place] (03/01/2021 7:01 AM CDT) TSH, Sensitive 0.04(L) 0.3 - 4.2 mIU/L 03/01/2021 8:31 AM CDT DTL Blood (Blood, Venous) 03/01/2021 7:01 AM CDT 03/01/2021 7:27 AM CDT us Guerrero Chan M.D. 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
[2024-11-12] MEDS: PIPERACILLIN/TAZOBACTAM 3.375 GM in 0.9 % SODIUM CHLORIDE Mini-bag 100 ML IVPB (21:14)
[2024-11-12] MEDS: LACTATED RINGERS 1000 ML 1,000 ML 200 ML IV ×2 (21:14→23:45)
[2024-11-12] MEDS: SODIUM CHLORIDE 0.9 % (FLUSH) 10 ML SYRINGE 5 ML IVF ×2 (21:21→23:46)
[2024-11-12 21:33] LABS: Appearance Urine Clear (Clear); Bilirubin Urine Negative (Negative); Blood Urine Negative (Negative); Color Urine Yellow (Yellow); Glucose Urine Negative (Negative); Ketones Urine Negative (Negative); Leukocyte Esterase Urine Negative (Negative); Nitrite Urine Negative (Negative); Protein Urine Negative (Negative); Specific Gravity Urine <= 1.005 (1.000-1.030); Urobilinogen Urine 0.2 (0.2-1.0)
[2024-11-12 21:42] LABS: RBC Urine 0-2 (0-2); Squamous Epithelial Cell Urine Few (None-Few); WBC Urine 0-2 (0-5)
[2024-11-12] MEDS: levETIRAcetam 500 MG TABLET PO (21:46)
[2024-11-12] MEDS: PANTOPRAZOLE SODIUM 40 MG INJ IVP (21:47)
[2024-11-12 21:55] LABS: Legionella pneumo Ag Urine L. pneumo Negative (Negative); S pneumo Ag Urine S. pneumo Negative (Negative)
[2024-11-12] MEDS: lamoTRIgine 100 MG TABLET 150 MG PO (22:35)
--- NOTE | 2024-11-12 22:45 | PC.NURSE ---
Patient arrived to floor from ED. Orthostatic blood pressures, repeat EKG, IV antibiotics and fluids completed as ordered. Patient able to void and urine sample sent. Patient alert and oriented and ambulating independently. No fevers, no nausea or vomiting during admission. Nursing to continue to monitor.
[2024-11-12] MEDS: HYDROCORTISONE SOD SUCCINATE 50 MG/ML inj IVP (23:45)
[2024-11-13] MEDS: PIPERACILLIN/TAZOBACTAM 3.375 GM in 0.9 % SODIUM CHLORIDE Mini-bag 100 ML IVPB ×3 (01:37→13:25)
[2024-11-13 01:40] VITALS: BP 130/78; PULSE 68; RESP 14; TEMP 36.6; O2SAT 98
[2024-11-13] MEDS: LEVOTHYROXINE 112 MCG TABLET PO (05:40)
[2024-11-13] MEDS: HYDROCORTISONE SOD SUCCINATE 50 MG/ML inj IVP (05:40)
[2024-11-13] MEDS: LACTATED RINGERS 1000 ML 1,000 ML 200 ML IV (05:40)
[2024-11-13] MEDS: LEVOTHYROXINE 25 MCG TABLET PO (05:40)
[2024-11-13] MEDS: SODIUM CHLORIDE 0.9 % (FLUSH) 10 ML SYRINGE 5 ML IVF (05:42)
--- NOTE | 2024-11-13 06:56 | PC.NURSE ---
Pt alert and oriented x3. Afebrile. Pt denies pain, chest pain, SOB, and N/V. Pt is up ad juan jose, voiding, and tolerating a clear liquid diet. Pt slept throughout most of night.
[2024-11-13 06:58] LABS: HCO3 VBG 28 mmol/L (21-28); PCO2 VBG 48 mmHG (40-50); PO2 VBG < 30.1 mmHG (25-47); pH VBG 7.372 (7.32-7.43)
[2024-11-13 07:00] VITALS: BP 123/78; BP 124/104; BP 129/89; BP 137/84; PULSE 73; PULSE 74; PULSE 78; PULSE 87; RESP 18; TEMP 36.6; O2SAT 99
[2024-11-13 07:01] LABS: Basophils Absolute Auto 0.01 K/uL (0.00-0.30); Basophils Percent Auto 0.2 % (0.0-3.0); Eosinophils Absolute Auto 0.01 K/uL (0.00-0.50); Eosinophils Percent Auto 0.2 % (0.0-7.0); Hematocrit 43.7 % (37.0-53.0); Hemoglobin* 14.2 gm/dL (13.5-17.5); Immature Granulocytes Abs Auto 0.02 K/uL (0.00-0.30); Immature Granulocytes Pct Auto 0.3 %; Lymphocytes Percent Auto 16.1 % (20-44); Mean Corpuscular HGB Conc 33 gm/dL (32-36); Mean Corpuscular Hemoglobin 29 pg (26-34); Mean Corpuscular Volume 88 fL (80-100); Monocytes Percent Auto 6.9 % (0.0-11.0); Neutrophils Percent Auto 76.3 % (42.0-72.0); Platelet Count* 205 K/uL (140-440); RDW Coefficient of Variation % 13.3 % (11.5-15.5); Red Blood Count 4.96 m/uL (4.30-5.90); White Blood Count* 6.41 K/uL (4.50-11.00)
[2024-11-13 07:05] LABS: Slide Review Reflex No
[2024-11-13 07:20] LABS: Albumin* 3.4 g/dL (3.3-5.0); Chloride* 104 mmol/L (96-114)
[2024-11-13 07:21] LABS: Sodium* 137 mmol/L (135-149)
[2024-11-13 07:23] LABS: Blood Urea Nitrogen* 18 mg/dL (7-30); Creatinine* 1.1 mg/dL (0.5-1.5); Est. Creatinine Clearance* 94.25; Estimated Glomerular Filt Rate 80 ml/min
[2024-11-13 07:24] LABS: Alanine Aminotransferase* 26 U/L (4-50); Anion Gap 8 mEq/L (7-15); Aspartate Amino Transferase* 30 U/L (12-35); Bilirubin Total* 2.5 mg/dL (0.1-1.5); Calcium* 7.8 mg/dL (8.4-10.6); Carbon Dioxide* 25 mmol/L (20-32); Glucose* 175 mg/dL (60-115); Magnesium* 1.6 mg/dL (1.5-2.6); Total Protein* 5.8 g/dL (6.0-8.3)
[2024-11-13 07:27] LABS: C Reactive Protein* 8.4 mg/dL (0.5-1.0)
[2024-11-13 07:38] LABS: Procalcitonin* 0.49 ng/mL (<0.50)
[2024-11-13 07:43] LABS: Alkaline Phosphatase* < 20 U/L (40-150)
[2024-11-13 07:56] LABS: Thyroid Stimulating Hormone* < 0.015 uIU/mL (0.270-4.20)
[2024-11-13] MEDS: lamoTRIgine 100 MG TABLET 150 MG PO (08:33)
[2024-11-13] MEDS: ASPIRIN 81 MG TABLET EC PO (08:34)
[2024-11-13] MEDS: levETIRAcetam 500 MG TABLET 750 MG PO (08:34)
[2024-11-13 11:00] VITALS: BP 119/72; PULSE 94; RESP 18; TEMP 36.6; O2SAT 99
[2024-11-13 11:27] LABS: Free T4 Free Thyroxine* 0.74 ng/dL (0.70-1.85)
[2024-11-13] MEDS: predniSONE 20 MG TABLET PO (13:31)
--- NOTE | 2024-11-13 14:59 | PM.DS1 ---
DS: Providers Provider Date Seen: 11/13/24 Date of admission: 11/12/24 20:26 Primary care physician: Salinas Blum MD Admitting Clinician: Stella Blackwell MD Attending Physician on discharge: Bunny Melo MD Date of Discharge: 11/13/24 DS: Diagnosis Discharge Diagnosis (1) Sepsis: Status: Acute Problem details: On admission appeared to have sepsis. Abnormal vitals and abnormal labs. With fluid resuscitation and systemic steroids signs of sepsis resolved relatively quickly. Likely the sepsis was due to combination of a severe gastroenteritis with adrenal insufficiency. (2) Febrile illness, acute: Status: Acute Problem details: Acute gastroenteritis has resolved since admission. No further vomiting or diarrhea. Feels well. Anxious to go home. (3) Pituitary adenoma with extrasellar extension: Status: Acute Problem details: Dx 04/2019, Surgery x 3. Follows with Dr. Myers in neurosurg annually 10/16/24 - Hypoenhancing pituitary neoplasm in the sella has minimally increased in size compared to 10/18/2023. No suprasellar mass effect or cavernous sinus extension. -levothyroxine, prednisone, growth hormone, testosterone replacement ongoing -[facility] endocrinology (Dr. 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 -RASHAUN - has followed with sleep medicine -polypharmacy (6) RASHAUN (obstructive sleep apnea): Status: Acute Problem details: -did not tolerate CPAP (7) Hypothyroidism: Status: Acute Problem details: synthroid replacement (8) Obesity: Status: Acute (9) Hypogonadism in male: Status: Acute (10) Visual field loss: Status: Acute Problem details: resulted from pituitary surgery; peripheral DS: Summary Hospital Course Hospital Course: 54-year-old white male who has several chronic medical conditions resulting in immunosuppression presents with his to the ER with an abrupt onset of vomiting and diarrhea. The does most of history. She states about 2:00 a.m. after a normal day yesterday she started feeling gurgly. He went to the bathroom and started passing multiple stools. He had several episodes of vomiting. She said she did see specks of blood in both his stool vomit but no active bleeding. She brought him in to the emergency room for further evaluation. She had not been ill nor did they have concerns about food poisoning or sick contacts. His medical history is complicated by a benign pituitary macro adenoma that was removed but created subsequent havoc for him. 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 He is on 4 types of hormone replacement (testosterone, growth hormone, levothyroxine, prednisone), he has significant RASHAUN, chronic headaches, hydrocephalus that required a [employer] SERVICE REPRESENTATIVE shunt. He is on disability. 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 Patient was treated with IV fluids, IV antibiotics, IV corticosteroids. With this treatment he had relatively quick resolution of his signs and symptoms of sepsis and his signs and symptoms of gastroenteritis. Today he is feeling better. He is anxious to go home. He has been able to eat and drink without further vomiting or diarrhea. Vital signs have normalized. This illness is thought to be severe gastroenteritis combined with adrenal insufficiency from his pituitary insufficiency. For future reference I have recommended that if he has a severe vomiting illness that he will need to go to the emergency room as he will be unable to do stress dose steroids orally and also unable to orally rehydrate. Status at Discharge Overall status at discharge: patient is back to baseline Time Spent with Patient Time attestation: Total time spent providing and/or coordinating discharge services:50 minutes Time spent: Greater than 30 minutes Exam Narrative: Exam Narrative: He is alert and appears in no distress. Speech is normal. He is oriented to circumstances. Respirations are clear to auscultation. Cardiovascular: S1, S2, regular rate and rhythm. Abdomen: Bowel sounds active. Abdomen is soft without tenderness or mass. Extremities without edema. Skin is well perfused. Good capillary refill. Extremities are warm to touch. Const: Vital Signs, click to edit/add: Vital Signs - 24 hr 11/12/24 15:52 11/12/24 16:45 11/12/24 16:46 Temperature 102.4 F H Pulse Rate Pulse Rate [Pulse Oximeter] 140 H Pulse Rate [orthos tatic sitting] Pulse Rate [orthos tatic standing] Respiratory Rate 20 22 Blood Pressure Blood Pressure [Ri ght Arm] Blood Pressure [Ri ght Upper Arm] 106/82 Blood Pressure [or thostatic lying Ri ght Arm] Blood Pressure [or thostatic sitting] Blood Pressure [or thostatic standing ] Pulse Oximetry 98 92 92 Oxygen Delivery Me thod Room Air Room Air 11/12/24 17:00 11/12/24 17:15 11/12/24 17:17 Temperature Pulse Rate Pulse Rate [Pulse Oximeter] 118 H 116 H Pulse Rate [orthos tatic sitting] Pulse Rate [orthos tatic standing] Respiratory Rate 28 H 24 25 H Blood Pressure Blood Pressure [Ri ght Arm] Blood Pressure [Ri ght Upper Arm] 115/82 116/73 Blood Pressure [or thostatic lying Ri ght Arm] Blood Pressure [or thostatic sitting] Blood Pressure [or thostatic standing ] Pulse Oximetry 91 92 92 Oxygen Delivery Me thod 11/12/24 17:30 11/12/24 17:31 11/12/24 17:46 Temperature Pulse Rate 112 H Pulse Rate [Pulse Oximeter] Pulse Rate [orthos tatic sitting] Pulse Rate [orthos tatic standing] Respiratory Rate 26 H 24 22 Blood Pressure 122/74 113/73 Blood Pressure [Ri ght Arm] Blood Pressure [Ri ght Upper Arm] Blood Pressure [or thostatic lying Ri ght Arm] Blood Pressure [or thostatic sitting] Blood Pressure [or thostatic standing ] Pulse Oximetry Oxygen Delivery Me thod 11/12/24 18:16 11/12/24 18:17 11/12/24 18:18 Temperature 100.2 F H Pulse Rate 111 H 110 H 111 H Pulse Rate [Pulse Oximeter] Pulse Rate [orthos tatic sitting] Pulse Rate [orthos tatic standing] Respiratory Rate 23 23 17 Blood Pressure 89/64 L 94/61 93/59 L Blood Pressure [Ri ght Arm] Blood Pressure [Ri ght Upper Arm] Blood Pressure [or thostatic lying Ri ght Arm] Blood Pressure [or thostatic sitting] Blood Pressure [or thostatic standing ] Pulse Oximetry 93 91 94 Oxygen Delivery Me thod 11/12/24 18:31 11/12/24 20:11 11/12/24 20:26 Temperature 99.5 F 99.5 F Pulse Rate 106 H Pulse Rate [Pulse Oximeter] 100 100 Pulse Rate [orthos tatic sitting] Pulse Rate [orthos tatic standing] Respiratory Rate 15 20 20 Blood Pressure 95/62 Blood Pressure [Ri ght Arm] 108/73 108/73 Blood Pressure [Ri ght Upper Arm] Blood Pressure [or thostatic lying Ri ght Arm] Blood Pressure [or thostatic sitting] Blood Pressure [or thostatic standing ] Pulse Oximetry 93 97 97 Oxygen Delivery Me thod Room Air Room Air 11/12/24 21:07 11/12/24 22:31 11/12/24 22:32 Temperature Pulse Rate Pulse Rate [Pulse Oximeter] 92 Pulse Rate [orthos tatic sitting] 91 Pulse Rate [orthos tatic standing] 98 Respiratory Rate Blood Pressure Blood Pressure [Ri ght Arm] Blood Pressure [Ri ght Upper Arm] Blood Pressure [or thostatic lying Ri ght Arm] 117/78 Blood Pressure [or thostatic sitting] 115/80 Blood Pressure [or thostatic standing ] 105/82 Pulse Oximetry Oxygen Delivery Me thod 11/12/24 23:44 11/13/24 01:40 11/13/24 07:00 Temperature 98.3 F 97.9 F 97.8 F Pulse Rate Pulse Rate [Pulse Oximeter] 73 68 73 Pulse Rate [orthos tatic sitting] Pulse Rate [orthos tatic standing] Respiratory Rate 18 14 18 Blood Pressure Blood Pressure [Ri ght Arm] 113/76 130/78 129/89 Blood Pressure [Ri ght Upper Arm] Blood Pressure [or thostatic lying Ri ght Arm] Blood Pressure [or thostatic sitting] Blood Pressure [or thostatic standing ] Pulse Oximetry 97 98 99 Oxygen Delivery Nv thod Room Air Room Air Room Air 11/13/24 07:00 11/13/24 07:00 11/13/24 11:00 Temperature 97.9 F Pulse Rate Pulse Rate [Pulse Oximeter] 73 74 94 Pulse Rate [orthos tatic sitting] 78 Pulse Rate [orthos tatic standing] 87 Respiratory Rate 18 18 Blood Pressure Blood Pressure [Ri ght Arm] 119/72 Blood Pressure [Ri ght Upper Arm] Blood Pressure [or thostatic lying Ri ght Arm] 123/78 Blood Pressure [or thostatic sitting] 137/84 Blood Pressure [or thostatic standing ] 124/104 H Pulse Oximetry 99 Oxygen Delivery Nv thod Room Air Documenting provider has reviewed patient's vital signs: yes DS: Data Data Completed and Pending Labs on day of discharge: Labs from last 24 hours 11/13/24 11/13/24 11/12/24 10:47 06:20 21:00 WBC 6.41 RBC 4.96 Hgb 14.2 Hct 43.7 MCV 88 MCH 29 MCHC 33 RDW Coeff of [place] 13.3 Plt Count 205 Neut % (Auto) 76.3 H Lymph % (Auto) 16.1 L Nicholas % (Auto) 6.9 Eos % (Auto) 0.2 Baso % (Auto) 0.2 Neut # (Auto) 4.90 Lymph # (Auto) 1.00 Nicholas # (Auto) 0.40 Eos # (Auto) 0.01 Baso # (Auto) 0.01 Abs Immat Gran (auto) 0.02 Imm/Tot Granulo (auto) 0.3 VBG pH 7.372 VBG pCO2 48 VBG pO2 < 30.1 VBG HCO3 28 Sodium 137 Potassium 5.0 Chloride 104 Carbon Dioxide 25 Anion Gap 8 BUN 18 Creatinine 1.1 Estimated Creat Clear 94.25 Estimated GFR 80 Glucose 175 H Lactate Calcium 7.8 L Magnesium 1.6 Total Bilirubin 2.5 H Direct Bilirubin AST 30 ALT 26 Alkaline Phosphatase < 20 L Troponin I C-Reactive Protein 8.4 H Total Protein 5.8 L Albumin 3.4 Procalcitonin 0.49 TSH < 0.015 L Free T4 0.74 Urine Color Yellow Urine Appearance Clear Urine pH 5.0 Ur Specific [place] <= 1.005 Urine Protein Negative Urine Glucose (UA) Negative Urine Ketones Negative Urine Blood Negative Urine Nitrite Negative Urine Bilirubin Negative Urine Urobilinogen 0.2 Ur Leukocyte Esterase Negative Urine RBC 0-2 Urine WBC 0-2 Ur Squamous Epith Cells Few Urine Bacteria None Urine L. pneumophilia Ag Urine Strep pneumoniae Ag SARS-CoV-2 (PCR) Influenza Type A (PCR) Influenza Type B (PCR) RSV (PCR) Lab Acknowledgement Test Added 11/12/24 11/12/24 19:14 16:30 WBC 7.86 RBC 6.27 H Hgb 18.0 H Hct 54.3 H MCV 87 MCH 29 MCHC 33 RDW Coeff of [place] 13.3 Plt Count 192 Neut % (Auto) 67.0 Lymph % (Auto) 24.4 Nicholas % (Auto) 6.2 Eos % (Auto) 1.8 Baso % (Auto) 0.1 Neut # (Auto) 5.26 Lymph # (Auto) 1.92 Nicholas # (Auto) 0.50 Eos # (Auto) 0.14 Baso # (Auto) 0.01 Abs Immat Gran (auto) 0.04 Imm/Tot Granulo (auto) 0.5 VBG pH VBG pCO2 VBG pO2 VBG HCO3 Sodium 140 Potassium 3.6 Chloride 102 Carbon Dioxide 26 Anion Gap 12 BUN 16 Creatinine 1.5 Estimated Creat Clear 69.12 Estimated GFR 55 Glucose 152 H Lactate 2.1 H Calcium 9.3 Magnesium Total Bilirubin 2.9 H Direct Bilirubin 0.2 AST 33 ALT 32 Alkaline Phosphatase 37 L Troponin I < 0.01 C-Reactive Protein 5.2 H Total Protein 7.7 Albumin 4.8 Procalcitonin 1.14 H TSH Free T4 Urine Color Urine Appearance Urine pH Ur Specific [place] Urine Protein Urine Glucose (UA) Urine Ketones Urine Blood Urine Nitrite Urine Bilirubin Urine Urobilinogen Ur Leukocyte Esterase Urine RBC Urine WBC Ur Squamous Epith Cells Urine Bacteria Urine L. pneumophilia Ag L. pneumo Negative Urine Strep pneumoniae Ag S. pneumo Negative SARS-CoV-2 (PCR) Negative SARS-CoV-2 Influenza Type A (PCR) Negative PCR FLU A Influenza Type B (PCR) Negative PCR FLU B RSV (PCR) Negative PCR RSV Lab Acknowledgement Preliminary micro results at discharge 11/12/24 19:14 Urine Culture - Preliminary Urine,Clean Catch No growth. Imaging CT Chest/Ab/Pelvis: Radiologist's impression: INDICATION: Fever, nausea, vomiting, blood in stool, history of sepsis TECHNIQUE: CT chest was performed with pulmonary angiographic technique. Subsequently, CT abdomen and pelvis with i.v. contrast, scanned during the venous phase. MIPS, coronal and sagittal reformats were obtained. CONTRAST: 135 mL Isovue 370 COMPARISON: None FINDINGS: CHEST: Cardiovascular: The pulmonary arteries are unremarkable in enhancement with no evidence of acute pulmonary embolism. The heart has an unremarkable appearance and size. No sign of aneurysm or dissection in the thoracic aorta. Mediastinum: No mass or adenopathy seen. Lung: There are 2 nodules present near the dome of the right middle lobe measuring up to 7 mm. Pleura and pericardium: No sign of pleural effusion seen. No significant pericardial effusion is present. Chest wall and axilla: No mass or adenopathy seen. ABDOMEN/PELVIS: Liver: Unremarkable. Spleen: Unremarkable. Pancreas: Unremarkable. Gallbladder: Previous cholecystectomy noted with no significant intra- or extrahepatic biliary ductal dilatation seen. Kidney: Unremarkable. No kidney or ureteral stones or obstruction seen. Adrenal: Unremarkable. Bowel: The stomach, small bowel, and colon are unremarkable. The appendix is normal in appearance and size. Vascular: Unremarkable. Lymph: Unremarkable. Peritoneum: Unremarkable. No pneumoperitoneum is seen. No significant ascites is noted. Pelvis: Unremarkable. Soft tissue: Unremarkable. Bone: Unremarkable for age. IMPRESSION: 1. There are 2 nodules present near the dome of the right middle lobe measuring up to 7 mm. Comparison with any prior outside imaging is recommended. If these cannot be obtained, follow up outpatient chest CT is recommended in 3 months. Discharge Plan Discharge Disposition: Home, Self-Care Date of Admission: 11/12/24 20:26 Attending Provider on Discharge: Clark Melo Primary Care Provider: Salinas Blum Condition: Improved Anticipated Discharge Date/Time: 11/13/24 14:47 Discharge Medications: Continued lamotrigine 300 mg tablet extended release 24hr 300 mg PO HS prednisone 5 mg tablet 5 mg PO DAILY Rx Instructions: Take 1 Tablet (5 mg) by mouth once daily. Double dose in acute illness. aspirin 81 mg tablet,delayed release (DR/EC) 81 mg PO HS Rx Instructions: Take 81 mg by mouth once daily in the evening. Norditropin FlexPro 10 mg/1.5 mL (6.7 mg/mL) pen injector 0.2 mg subcut DAILY levetiracetam 750 mg tablet extended release 24 hr 1,500 mg PO HS Nurtec ODT 75 mg tablet,disintegrating 75 mg PO DIRECTED PRN (Reason: migraine) diphenhydramine-acetaminophen [Acetadryl] 25-500 mg tablet 2 tab PO HS trazodone 150 mg tablet 150 mg PO HS tizanidine 4 mg tablet 4 mg PO HS levothyroxine 137 mcg tablet 137 mcg PO QDAY Qty: 90 3RF testosterone cypionate 200 mg/mL oil 150 mg IM Q2W Qty: 6 5RF Rx Instructions: 0.75 mL Q2WKS Discharge Orders: Discharge Order (Routine); Ordered 11/13/24 Ordered By: Clark Melo Additional Instructions: Take prednisone 20 mg tomorrow morning, November 14 and then resume prednisone 5 mg daily after that. Activity Level: No Restrictions Discharge Diet: Regular Follow Up Appointments: Salinas Blum MD [Primary Care Provider] - (follow up as needed) Forms: [facility] Info Instructions
--- NOTE | 2024-11-13 18:03 | PC.NURSE ---
Discharge: Patient pleasant and cooperative, A&O. VSS, afebrile. SpO2 maintained above 90% on RA. Patient denies pain this shift. Tolerating regular diet, denies nausea. No BM this shift. Independent in room. IV removed with tip intact. Discharge instructions provided, all questions answered.
== END 2024-11-13 17:31 | disposition home or self-care (01) | DRG 872 ==
LOC: ED 20:00 → MEDSURG 20:03
PROVIDERS: Family Medicine; Admitting Provider Family Medicine; Emergency Provider Family Medicine; PCP Family Medicine; Visit Provider Family Medicine
DX: A41.9 Sepsis, unspecified organism (principal); R11.2 Nausea with vomiting, unspecified; R50.9 Fever, unspecified; D35.2 Benign neoplasm of pituitary gland; Z87.898 Personal history of other specified conditions; R53.82 Chronic fatigue, unspecified; G47.33 Obstructive sleep apnea (adult) (pediatric); E03.9 Hypothyroidism, unspecified; E66.9 Obesity, unspecified; Z68.33 Body mass index [BMI] 33.0-33.9, adult; E29.9 Testicular dysfunction, unspecified; H54.7 Unspecified visual loss; Z85.828 Personal history of other malignant neoplasm of skin; Z79.899 Other long term (current) drug therapy; I10 Essential (primary) hypertension; G89.29 Other chronic pain; R51.9 Headache, unspecified
CPT/HCPCS: 36415; 71260; 74177; 80053; 81001; 82248; 82803; 83605; 83735; 84145; 84439; 84443; 84484; 85025; 86140; 87040; 87045; 87046; 87081; 87086; 87177; 87209; 87427; 87449; 87493; 87505; 87631; 87899; 93005; 94761; 99285; A9270; J0131; J1720; J1885; J2405; J2470; J2543; J7030; J7120; J7512; Q9967

== ENCOUNTER 2025-05-01 19:40 | Emergency (ER) | payer MEDICARE, BC, SELFPAY ==
--- OUTSIDE RECORDS SUMMARY | 2020-02-25 19:00 | XMS_ITS | Continuity of Care Document ---
Author Organization [facility] Address [address] [address] [place] [address] Phone Care Team Providers Care Electronic Communications Technician Name Role Phone Daryn HERMAN, Emma Unavailable Unavailable Procedures Procedure Date Subsqt Hosp-da E&m Minr Compl 0 Ugi Endo; W/endo Ultrasound Ex Ercp; W/sphincterotomy/papillo Ercp; W/endo Retro Remov Stone Init Inpt Cons New/est Mod-hi 0 Advance Directives Directive Yes / No Effective Date File Name No Information Encounters Encounter Description Practice Location Reason(s) For Visit Diagnoses Date Provider Providers Copied on Encounter Subsqt Hosp-da E&m Minr Compl [facility], [address] [address], [place], [place], [id number], tel:[phone] [facility] No Information 0 Daryn Carter. [address] [place] [address], [id number] , [place]. tel: [phone] Referring Provider: Shun Byrnes, [address] [place] [address], [address]. tel:[phone] [facility], [address] [address], [place], [id number], [place] tel:[phone] [facility] No Information 0 Anastacia Ugarte. [address] [place] [address], [id number] , [place]. tel:[phone] Referring Provider: Shun Byrnes, [address] [place] [address], [address]. tel:[phone] Init Inpt Cons New/est Mod-hi [facility], [address] [address], [place], [place], [id number], [place] tel:[phone] [facility] No Information 0 Ama Mendez . [address] [facility], [place], [place], [id number] , [place]. tel:[phone] Referring Provider: Shun Blum MD , [address] [place], [address]. tel:[phone] Family History Family Member Type Diagnosis Age At Onset No Information Payers Payer name Insurance type Covered green party ID Johnny bautista(s) Blue Cross [facility] [id number] Social History Type Description Quantity Date Captured Comments Sex Male Smoking Status No Information Chief Complaint And Reason For Visit No Information Reason For Referral Reason For Referral No Information History Of Present Illness Encounter Date Complaint History Of Prese nt Illness No Information Functional Status Date Functional Assessmen t No Information Instructions Date Instruction Additional Infor mation No Information Assessments Type Assessment Date No Information Patient Care Teams Name Effective Dates (start - stop) Status Members No Information
--- OUTSIDE RECORDS SUMMARY | 2020-02-25 19:00 | XMS_ITS | Continuity of Care Document ---
Author Organization [facility] Address [address] [address] [place] [address] Phone Care Team Providers Care Haulage Engine Operator Name Role Phone Daryn HERMAN, Emma Unavailable [...] on Encounter Subsqt Hosp-da E&m Minr Compl [facility], [address] [address], [place], [place], [id number], tel:[phone] [facility] No Information 0 Daryn Carter. [address] [place] [address], [id number] , [place]. tel: [phone] Referring Provider: Shun Byrnes, [address] [place] [address], [address]. tel:[phone] [facility] [place], [address] [address], [place], [id number], [place] tel:[phone] [facility] No Information 0 Anastacia Ugarte. [address] [place] [address], [id number] , [place]. tel:[phone] Referring Provider: Shun Byrnes, [address] [place] [address], [address]. tel:[phone] Init Inpt Cons New/est Mod-hi [facility], [address] [address], [place], [place], [id number], [place] tel:[phone] [facility] No Information 0 Ama Mendez . [address] [facility], [address], [place], [place], [id number] , [place]. tel:[phone] Referring Provider: Shun Blum MD , [address] [place], [address]. tel:[phone] Family History Family Member Type Diagnosis Age At Onset No Information Payers Payer name Insurance type Covered republican ID Johnny bautista(s) Blue Cross [facility] [id number] Social History Type Description Quantity Date Captured [...]
--- OUTSIDE RECORDS SUMMARY | 2025-05-01 19:42 | XMS_ITS | Clinical Summary ---
Author Organization [facility] Address [address] , [address] [place] [address] Phone Care Team Providers Care Residential Nurse Name Role Phone Celestina CHAPPELL CNP, Didi Baptiste [phone] Conditions or Problems Problem Name Problem Code Onset Date Status Entry Date Provider Comment Standard Description Annotate Spells 27058889 (SNOMED CT) 03/05 Active 03/05 Maribel Maciel MD Stupor Chronic migraine 975428685 (SNOMED CT) 03/05 Active 03/05 Maribel Maciel MD Transformed migraine HEADACHE 42384605 (SNOMED CT) 11/13 Active 11/13 Maribel Maciel MD Headache Transient neurological symptoms 440729722 (SNOMED CT) 11/13 Active 11/13 Maribel Maciel MD Transient neurological symptoms Vision changes 82374831 (SNOMED CT) 08/09 Active 11/11 Umm Rakow Disorder of vision Imported from CDA: [facility] ( 4 at 08:35:00 AM) Syncope 263863701 (SNOMED CT) 04/25 Active 11/11 Umm Rakow Syncope Imported from CDA: [facility] ( 4 at 08:35:00 AM) Sepsis 83031037 (SNOMED CT) 09/29 Active 11/11 Umm Rakow [facility]epsis [facility] at 08:[facility] AM) Secondary adrenal insufficienc y 55608880 (SNOMED CT) 09/29 Active 11/11 Umm Rakow Hypocortisolism secondary to another disorder Imported from CDA: [employer] [facility] ( 4 at 08:35:00 AM) S/P ventriculope ritoneal shunt Z98.2 (ICD-10-CM ) 09/29 Active 11/11 Umm Rakow Presence of cerebrospinal fluid drainage device Imported from CDA: [employer] [facility] ( 4 at 08:35:00 AM) S/P craniotomy Z98.890 (ICD-10-CM ) 09/29 Active 11/11 Umm Rakow Other specified postprocedural states Imported from A: [employer] [facility] ( at 08:35:00 AM) Pituitary macroadenoma 510413488 (SNOMED CT) 09/29 Active 11/11 Umm Rakow Pituitary macroadenoma Imported from CDA: [employer] [facility] ( at 08:35:00 AM) Obstructive hydrocephalu s 242220151 (SNOMED CT) 09/29 Active 11/11 Umm Rakow Obstructive hydrocephalus Imported from CDA: [employer] [facility] ( at 08:35:00 AM) Hyponatremia 37259594 (SNOMED CT) 08/09 Active 11/11 Umm Rakow Hyponatremia Imported from CDA: [employer] [facility] ( at 08:35:00 AM) Hypertension 79423484 (SNOMED CT) 09/29 Active 11/11 Umm Rakow Hypertensive disorder Imported from CDA: [employer] [facility] ( at 08:35:00 AM) Headache 17913938 (SNOMED CT) 09/29 Active 11/11 Umm Rakow Headache Imported from CDA: [employer] [facility] ( 4 at 08:35:00 AM) Growth hormone deficiency E23.0 (ICD-10-CM ) 10/07 Active 11/11 Umm Freire [facility]opituitarism [facility] ( 4 at 08:35:00 AM) Elevated LFTs R79.89 (ICD-10-CM ) 02/23 Active 11/11 Umm Freire Other specified abnormal findings of blood chemistry [facility] ( 4 at 08:35:00 AM) Common bile duct calculus 607989087 (SNOMED CT) 02/25 Active 11/11 Umm Freire Common bile duct calculus Imported from CDA: [employer] [facility] ( 4 at 08:35:00 AM) Medications Medication Instructions Start Date Stop Date Generic Name NDC Provider LEVETIRACETAM ER 750 MG [id number] Take 1 tablet by mouth once a day for 7 days, then take 2 tablet by mouth once a day 03/05 levetiracetam 27408425748 Maribel Maciel MD LEVETIRACETAM ER 750 MG [id number] TAKE 1 TABLET BY MOUTH ONCE A DAY FOR 7 DAYS, THEN TAKE 2 TABLET BY MOUTH ONCE A DAY 10/07 levetiracetam 11368558980 Maribel Maciel MD AZATHIOPRINE 50 MG TABS TAKE 2 TABLETS BY MOUTH DAILY azathioprine 90492672575 Maribel Maciel MD LAMOTRIGINE ER 50 MG [id number] Take 3 tablet by mouth once a day for 7 days, then take 4 tablet by mouth once a day for 7 days, then take 5 tablet by mouth once a day for 7 days 08/20 lamotrigine 45916921843 Maribel Maciel MD LAMOTRIGINE ER 25 MG [id number]-[id number] Take 1 tablet by mouth once a day for 14 days, then take 2 tablet by mouth once a day for 14 days, then take 4 tablet by mouth once a day 08/20 lamotrigine 33026921580 Maribel Maciel MD LAMOTRIGINE ER 300 MG [id number] Take 1 tablet by mouth once a day 08/20 lamotrigine 36557003088 Maribel Maciel MD RIZATRIPTAN BENZOATE 10 MG TABS Take 1 tab po at the onset of migraine. Ok to repeat in 2 hours. Do not exceed 2 tabs in 24 hours. Max 9 tablets/month 08/23 rizatriptan 49254905875 Maribel Maciel MD NURTEC 75 MG TBDP Take 1 tablet by mouth as directed Take 1 tab at onset of migraine. Do not take more than 1 tablet in a 24-hour period. 08/11 rimegepant 21951342298 Maribel Maciel MD WEGOVY 0.5 MG/0.5ML SOAJ INJECT 0.5 MG SUBCUTANEOUS ONCE WEEKLY. THEN INCREASE TO 1 MG WEEKLY AFTER 4 WEEKS. 06/11 semaglutide (weight loss) 13300150000 Maribel Maciel MD HYDROXYCHLOROQUINE SULFATE 200 MG TABS 06/11 hydroxychloroquine 25606606165 Maribel Maciel MD ENBREL SURECLICK 50 MG/ML SOAJ etanercept 80012843181 Maribel WOODRUFFGOVY 2.4 MG/0.75ML SOAJ semaglutide (weight loss) 33859744301 Maribel Maciel MD PROPRANOLOL HCL ER 60 MG [id number] TAKE 1 CAPSULE BY MOUTH EVERY DAY 11/22 propranolol 13469427311 Maribel Maciel MD PROPRANOLOL HCL ER 60 MG [id number] TAKE 1 CAPSULE BY MOUTH EVERY DAY 04/21 propranolol 19228318600 Maribel Maciel MD EMGALITY 120 MG/ML SOAJ Loading dose of 2 injections the first month 03/05 galcanezumab-[facility] [id number] Maribel Maciel MD EMGALITY 120 MG/ML SOAJ Inject 1 pen injector subcutaneously once a month as directed (after first months loading dose) 03/05 galcanezumab-[facility] [id number] Maribel Maciel MD AJOVY 225 MG/1.5ML SOAJ 1 sq q 28 days 03/26 fremanezumab-[facility] 34211285594 Maribel Maciel MD EMGALITY 120 MG/ML SOAJ Inject 1 pen injector subcutaneously once a month as directed (after first months loading dose) 03/05 galcanezumab-[facility] [id number] Maribel Maciel MD EMGALITY 120 MG/ML SOAJ Loading dose of 2 injections the first month 03/05 galcanezumab-[facility] 27513118526 Maribel Maciel MD LEVETIRACETAM ER 750 MG [id number] Take 1 tablet by mouth once a day for 7 days, then take 2 tablet by mouth once a day 03/05 levetiracetam 50046787551 Maribel Maciel MD PROCHLORPERAZINE MALEATE 10 MG TABS 03/05 prochlorperazine maleate 54523926726 Maribel Maciel MD PHENTERMINE HCL 37.5 MG CAPS TAKE 1 CAPSULE BY MOUTH DAILY; ADMINISTER 30 MINUTES BEFORE OR 1-2 HOURS AFTER BREAKFAST 03/05 phentermine 43927748395 Maribel Maciel MD NORDITROPIN FLEXPRO 10 MG/1.5ML SOPN somatropin 89528443612 Maribel Maciel MD WEGOVY 0.5 MG/0.5ML SOAJ INJECT 0.5 MG SUBCUTANEOUS ONCE WEEKLY. THEN INCREASE TO 1 MG WEEKLY AFTER 4 WEEKS. 06/11 semaglutide (weight loss) 02124663784 Maribel Maciel MD TOPIRAMATE 50 MG TABS Take 1 tablet by mouth once a day x 1 week; then take 1 tablet twice a day x 1 week; then take 2 tablets in the morning and take 1 tablet in the evening x 1 week; then take 2 tablets twice a day 11/13 topiramate 23464493404 Maribel Maciel MD PROPRANOLOL HCL ER 60 MG [id number] TAKE 1 CAPSULE BY MOUTH EVERY DAY 11/22 propranolol 12253902942 Maribel Maciel MD TOPIRAMATE 50 MG TABS Take 1 tablet by mouth once a day x 1 week; then take 1 tablet twice a day x 1 week; then take 2 tablets in the morning and take 1 tablet in the evening x 1 week; then take 2 tablets twice a day 11/13 topiramate 64008025726 Maribel Maciel MD TOPIRAMATE 50 MG TABS 1 po qday x 1 week, 1 po BID x 1 week then 2 po qam x 1 week then 2 po BID 11/13 topiramate 80377794805 Maribel Maciel MD METHOTREXATE SODIUM 2.5 MG TABS 11/13 methotrexate sodium 67842443794 Mairbel Maciel MD HYDROCORTISONE 10 MG TABS hydrocortisone 11321018991 Maribel Maciel MD TESTOSTERONE CYPIONATE 200 MG/ML SOLN INJECT 150 MG (0.75 ML) INTRAMUSCULARLY EVERY 2 WEEKS testosterone cypionate 22016187617 Maribel Maciel MD PHENTERMINE HCL 37.5 MG CAPS TAKE 1 CAPSULE BY MOUTH DAILY; ADMINISTER 30 MINUTES BEFORE OR 1-2 HOURS AFTER BREAKFAST 03/05 phentermine 75487467431 Maribel Maciel MD TRAZODONE HCL 150 MG TABS trazodone 10528816528 Maribel Maciel MD HYDROXYCHLOROQUINE SULFATE 200 MG TABS 02/13 hydroxychloroquine 30647181236 Maribel Maciel MD METHOTREXATE SODIUM 2.5 MG TABS 11/13 methotrexate sodium 85342011596 Maribel Maciel MD TIZANIDINE HCL 4 MG TABS tizanidine 78557629949 Maribel Maciel MD FOLIC ACID 1 MG TABS TAKE 1 TABLET DAILY folic acid 03770220955 Maribel Maciel MD LEVOTHYROXINE SODIUM 137 MCG TABS levothyroxine 07382864174 Azeem Maciel MD PROCHLORPERAZINE MALEATE 10 MG TABS 02/13 prochlorperazine maleate 54469972865 Maribel Maciel MD Medications Administered No information [...] Rec X SMOK STATUS never smoker 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 Procedure: Occipital Nerve B lock [...] Agreement Plan of Care Type Date Detail Appointment 09:30 AM Remigio redmond MD, [address] [facility], [facility] [address], [place], [address], Pending order Follow up Pending order EEG Ambulatory ( 74hr) Pending Order exclud ed from report: Pending order Follow up teleme dicine Pending order EEG Ambulatory ( 74hr) Pending order Patient Instruct ions Pending order Follow up Pending order EEG 26hr (all ag es) Pending order Follow up teleme dicine Pending order Follow up Pending order Patient Instruct ions Pending order EEG (40min) Pending order Occipital Nerve Block Injection Pending order Patient Instruct ions Procedures Code Procedure Name Date Entry Date ORDERS Follow up telemedicine 06/11 ORDERS Patient Instructions 46132/28/03/08 EEG Ambulatory (74hr) CPT-93839 EEG Setup CPT-66010 Video EEG 26hrs 1min-36hrs () 4 CPT-55266 Video EEG 26hrs 1min-36hrs (Tech) CPT-14836 Video EEG 26hrs 1min-36hrs ()* CPT-12544 Video EEG 26hrs 1min-36hrs (Tech)* 09/09 52309/ EEG 26hr (all ages) 202 11/14/05 ORDERS Follow up telemedicine 03/05 CPT-G2211 Complex e/m visit add on 202 11/10/30 ORDERS Follow up ORDERS Patient Instructions CPT-78102 EEG (AWAKE/DROWSY) (END) 202 11/08/00 [address] [place] [address] EEG (40min) ORDERS Patient Instructions 88776/13037 Occipital Nerve Block Injection 0 CPT-66760 Occipital nerve bloc k (Greater ONB) unilateral CPT-33486 Lesser ONB/3rd ONB/Auricular/Preauricular,unilateral CPT-J1100 Dexamethasone -- 10 mg 11/13 [facility]-[id number] Documentation of current medicatio ns Vital Signs [...]
--- OUTSIDE RECORDS SUMMARY | 2025-05-01 19:43 | XMS_ITS | Patient Health Record ---
Author Organization [facility] Address [address] [place] [address] Care Team Providers Care Pilot Captain Name Role Phone Shun Blum Primary Care Provider PILAR Thakkar Unavailable [phone] Ignacio Myers Unavailable Unavailable Reason For Referral No Information Medications Medication SIG (Take, Route, Fr equency, Duration) Notes Start Date End Date Status Keppra Active amLODIPine Besylate Active Hydrocortisone Activ e Social History Tobacco Use: Social History Observation Description Date Details (start date - stop date) Never Smoker NA - NA Social History Tobacco Use: Social Info Question Answer Notes Tobacco use/smoking Are you a nonsmoker Problems Problem Type SNOMED Code ICD Code Onset Dates Problem Status W/U Status Risk Notes Problem Pituitary adenoma (545242456) Pituitary adenoma (D35.2) Active confirmed Plan Of Treatment No Information Insurance Providers Payer Name Payer Address Payer Phone Subscriber Number Group Number Insured Name Patient Relationship to Insured Coverage Start Date Coverage End Date [facility] [address] [address] [place] [address] [id number] Hans Miller Self - patient is the insured Medical (General) History Medical History History ICD Code Basal cell carcinoma HTN Cataracts Surgical History Surgery Date(Month/Year) Pituitary adenoma resection Shoulder repair
--- OUTSIDE RECORDS SUMMARY | 2025-05-01 19:43 | XMS_ITS | Clinical Summary ---
Author Organization [facility] Address [address] [place] [address] Care Team Providers Care Laundry Operator Wash Room Name Role Phone Salinas Bulm MD Primary Care Provider [phone] Robin Martinez MD Unavailable [phone] Allergies Active Allergy Reactions Criticality Noted Date [...] needle, diabetic (Pen Needle) 31 gauge x 5/16Indications :Growth hormone deficiency (HC) For administering growth hormone shots daily at home. 100 Each 3 01/02/ 024 Active cholecalciferol (VITAMIN D3) 1,000 unit tabletIndication s:Hypovitaminosi s D Take 1 Tablet (1,000 units) by mouth once daily. 024 Active predniSONE (DELTASONE) 5 mg tabletIndication s:Secondary adrenal insufficiency (HC) Take 1 Tablet (5 mg) by mouth once daily. Double dose in acute illness. 120 Tablet 3 024 Active semaglutide, weight loss, (Wegovy) 2.4 mg/0.75 mL subcutaneous penIndications:O besity (BMI 30.0-34.9) Inject 2.4 mg subcutaneous once weekly. 4 Pen 3 024 Active somatropin (Norditropin FlexPro) 10 mg/1.5 mL (6.7 mg/mL) penIndications:G rowth hormone deficiency (HC) INJECT 0.2MG SUBCUTANEOUSLY DAILY (DISCARD 28 DAYS AFTER FIRST USE) 4.5 mL 3 025 Active testosterone cypionate (DEPO-TESTOSTERO NE) 200 mg/mL oil injectionIndicat ions:Secondary male hypogonadism INJECT 0.75 ML (150 MG) INTRAMUSCULAR EVERY 2 WEEKS. EVERY OTHER WEEK (DISCARD REMAINDER OF VIAL AFTER FIRST PUNCTURE) 10 mL 3 025 Active levothyroxine (SYNTHROID) 137 mcg tabletIndication s:Hypothyroidism , unspecified type TAKE 1 TABLET (137 MCG) BY MOUTH ONCE DAILY. 90 Tablet 025 Active traZODone (DESYREL) 150 mg tabletIndication s:Insomnia, unspecified type TAKE 1 TABLET (150 MG) BY MOUTH AT BEDTIME. 90 Tablet 025 Active traZODone (DESYREL) 150 mg tabletIndication s:Insomnia, unspecified type Take 1 Tablet (150 mg) by mouth at bedtime. 90 Tablet 4 024 2024 Discontinued levothyroxine (SYNTHROID) 137 mcg tabletIndication s:Hypothyroidism , unspecified type Take 1 Tablet (137 mcg) by mouth once daily. 90 Tablet 4 024 2024 Discontinued Active Problems Problem Noted Date Diagnosed Date [...] Encounters Date Type Department Care Team Description 04/30/2025 Orders Only [facility] Scanner 1 scan: (1-Ord) [facility] 04/29/2025 Refill [facility] [address] [place] [phone] Robin Martinez MD Refill Request (Trazodone) 04/07/2025 Refill [facility] [address] [place] [phone] Robin Martinez MD Refill Request (Levothyroxine) 03/16/2025 Refill [facility] [address] [place] [phone] Robin Martinez MD Refill Request (Testosterone Cypionate) from Last 3 Months Immunizations Immunization Administration [...] AM CDT Legal 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 Gender Identity Male 05/27/2020 7:59 AM CDT Sexual Orientation Straight 05/27/2020 7: 59 AM CDT 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 [employer] Not on file Not on file Not [...] Done Comments HIV for age 15-65 1985 Hepatitis B series for 19+ ( 1 of 3 - 19+ 3-dose series) 1989 Colonoscopy through age 75 10/13/2015 Lipids for [...] 11/02/2022, Additional history exists COVID-19 vaccine series (2024- season) 2025 07/20/2021, 10/21/2020 Influenza Vaccine (#1) 2025 RSV vaccine for adults or (1 - 1-dose 75+ series) 2045 Hepatitis C screening for ag e 18-79 Completed 02/24/2020 Medical Devices Implanted Type Area Greens Laborer Device Identifier Shelf Expiration Date Model / Serial / Lot Implnt Transphenoidal Sellar Porex - [id number] Implanted:Qty: 1 on 04/24/2019 by Ignacio Myers MD at [facility] N/A: Cranium [place] Craniomaxillofacial 08/05/2028 [id number]# / / [id number] Valve Neuro Micro Hakim W/ [place] - [id number] Implanted:Qty: 1 on 05/02/2019 by Ignacio Myers MD at [facility] Right: Cranium [employer] 09/05/2023 [id number]# / / [id number] Implnt Transphenoidal Sellar Porex - [id number] Implanted:Qty: 1 on 08/08/2019 by Ignacio Myers MD at [facility] N/A: Cranium [employer] Craniomaxillofacial 36995# / / Screw Neuro 4mm Matrixneuro Slf Drill Titnm - [id number] Implanted:Qty: 16 on 02/18/2020 by Ignacio Myers MD at [facility] Right: Cranium J And J Depuy CMF 04.503.1 04.01# / / Screw Neuro 5mm Matrixneuro Slf Drill Titnm - [id number] Implanted:Qty: 2 on 02/18/2020 by Ignacio Myers MD at [facility] Right: Cranium J [employer] Depuy CMF 04.503.1 05.01# / / Plate Facial 12mm 2hole Synthes Stra - [id number] Implanted:Qty: 1 on 02/18/2020 by Ignacio Myers MD at [facility] Right: Cranium [employer] CMF 421.502# / / [place] Hole Cover Neuro 24mm Synthes Low Pro Titnm - [id number] Implanted:Qty: 3 on 02/18/2020 by Ignacio Myers MD at [facility] Right: Cranium J And J Depuy CMF 421.528# / / Dura Neuro 2x2in Durepair Sut - [id number] Implanted:Qty: 1 on 02/18/2020 by Ignacio Myers MD at [facility] Right: Cranium [employer] 04/05/2022 20117# / / [id number] Implnt Pterional Rt - [id number] Implanted:Qty: 1 on 02/18/2020 by Ignacio Myers MD at [facility] Right: Cranium [employer] Craniomaxillofacial 10/04/2027 9864# / / [id number] Procedures Procedure Name Priority Date/Time Associated Diagnosis Comments SCAN-EYE EXAM 04/30/2025 12:00 AM CDT ACUTE HEPATITIS PANEL WALT 02/24/2020 6:22 AM CDT from Last 3 Months or Most Recently Relevant to Health Maintenance Results * SCAN-EYE EXAM (04/30/2025 12:00 AM CDT) us Scanner OTHER Final Result * ACUTE HEPATITIS PANEL (02/24/2020 6:22 AM CDT) HEPATITIS C ANTIBODY Non-Reactive Non-Reactive 02/24/2020 3:30 PM CDT [facility] Comment:Antibodies to HCV no t detected; does not exclude the possibility of exposure to HCV. IGM ANTI HAV Non-Reactive Non-Reactive 02/24/20 3:30 PM CDT [facility] HBSAG Nonreactive Nonreactive 02/24/2020 3:30 PM CDT [facility] IGM ANTI HBC Non-Reactive Non-Reactive 02/24/20 3:30 PM CDT [facility] Blood BLOOD SPECIMEN / Unknown Venipuncture / Unknown 02/24/2020 6:22 AM CDT 02/24/2020 6:39 AM CDT Narrative [facility] - 02/24/2020 3:30 PM CDT Anti-HBc IgM not detected. Does not exclude the possibility of exposure to or infection with HBV. us Emma Stearns NP SEND OUTS Final Result [facility] [address] [place] [address], [place] from Last 3 Months or Most Recently Relevant to Health Maintenance Insurance [facility] MEDICARE PART A HB ONLY MEDICARE PART [...] 6:06 AM 08/11/2019 3:35 PM Care Teams Laundry Operator Wash Room Relationship Specialty Start Date End Date Salinas Blum MD PCP - General 10/08/09 Robin Martinez MD [address] [facility] [address] [place] [address] Endocrinology 03/06/23
--- OUTSIDE RECORDS SUMMARY | 2025-05-01 19:43 | XMS_ITS | Clinical Summary ---
Author Organization [facility] Address [address] [place] [address] Care Team Providers [employer] Name Role Phone None Reported, Pcp Primary Care Provider Unavail able Source Comments Patient records contain information from all sites at [facility]. For routine questions regarding patient records, call [phone] during business hours, M-F 8:00 AM - 5:00 PM Central Time. Record requests for emergency care only can be directed to [phone] at any time.[facility] Allergies Active Allergy Reactions Criticality Noted Date [...] by your partner or ex-partner? No 02/23/2021 Hunger Vital Sign Answer Date Recorded [...] place to sleep or slept in a [place] health care facility (including now)? No 02/23/2021 Depression Answer Date Recor ded PHQ-9 Total Score (max 27) 9 04/01 Education Answer Date Recorded What is the [...] Comments Blood Pressure 108/85 09/29/2023 3:45 PM AMUSEMENT PARK RIDE MECHANIC Pulse 108 09/29/2023 3:45 PM AMUSEMENT PARK RIDE MECHANIC Temperature 36.8 C (98.2 F) 09/29/2023 2:27 PM AMUSEMENT PARK RIDE MECHANIC Respiratory Rate 20 09/29/2023 3:45 PM AMUSEMENT PARK RIDE MECHANIC Oxygen Saturation 97% 09/29/2023 3:45 PM AMUSEMENT PARK RIDE MECHANIC Inhaled Oxygen Concentration - - Weight 123 kg (271 lb 14.4 oz) 09/29/2023 5:04 A M AMUSEMENT PARK RIDE MECHANIC Height 194 cm (6' 4.38) 04/01/2021 12:47 [...] - Td or Tdap) 02/17/2023 02/17/2013, 03/22/1989 Depression Screening (Annual PHQ-2) 08/06/2024 COVID-19 Vaccine (3 - season) 2025 07/20/2021, 10/21/2020 Influenza Vaccine (#1) 2025 Lipid (Cholesterol) Screening 03/01/2026 03/01/2021 Fasting Glucose for Diabetes Screening 01/28/2027 01/29/2024, 09/30/2023, 09/29/2023, Additional history exists Hepatitis B Screening Discontinued 02/24/2020 HPV Vaccines Aged Out No longer eligi ble based on patient's age to complete this topic IPV Vaccines Aged Out No longer eligi ble based on patient's age to complete this topic Medical Devices Implanted Type Area [employer] Gro[employer] Machine Operator Device Identifier Shelf Expiration Date Model / Serial / Lot Hakim Programmable Ventricular Shunt-05/02/2019 Implanted:05/02 (Quantity not on file) Programmable Ventricular Shunt N/A: Brain Codman 09/05/2023 / / [id number] Description:See Media tab fo r uploaded photo of device card on 03/08/2021 / [id number] [id number]/ [id number] /Codman Hakin / programmable Procedures Procedure Name Priority Date/Time Associated Diagnosis Comments BASIC METABOLIC PANEL, S/P STAT 09/29/2023 5:20 AM AMUSEMENT PARK RIDE MECHANIC LIPID PANEL, S Routine 03/01/2021 7:01 AM CDT Hypothyroidism THYROID FUNCTION CASCADE, S Routine 03/01/2021 7:01 AM CDT Adenoma Pituitary Gonadotrophin Secretin (HCC) from Last 3 Months or Most Recently Relevant to Health Maintenance Results * (ABNORMAL) Basic Metabolic Panel (09/29/2023 5:20 AM AMUSEMENT PARK RIDE MECHANIC) Potassium, P 3.8 3.6 - 5.2 mmol/L 09/29/2023 6:04 AM AMUSEMENT PARK RIDE MECHANIC NPRG Sodium, P 144 135 - 145 mmol/L 09/29/2023 6:04 AM AMUSEMENT PARK RIDE MECHANIC NPRG Chloride, P 104 98 - 107 mmol/L 09/29/2023 6:04 AM AMUSEMENT PARK [employer]IDE MECHANIC NPRG Bicarbonate, P 29 22 - 29 mmol/L 09/29/2023 6:04 AM AMUSEMENT PARK RIDE MECHANIC NPRG Anion Gap, P 11 7 - 15 09/29/2023 6:04 AM AMUSEMENT PARK RIDE MECHANIC NPRG BUN (Blood Urea Nitrogen), P 14 8 - 24 mg/dL 09/29/2023 6:04 AM AMUSEMENT PARK RIDE MECHANIC NPRG Creatinine 1.36(H) 0.74 - 1.35 mg/dL 09/29/2023 6:04 AM AMUSEMENT PARK RIDE MECHANIC NPRG Estimated GFR (eGFR) 63 >=60 mL/min/BSA 09/29/2023 6:04 AM AMUSEMENT PARK RIDE MECHANIC NPRG Comment: Estimated GFR calculated using the 2020 CKD_EPI creatinine equation. Calcium, Total, P 8.8 8.6 - 10.0 mg/dL 09/29/2023 6:04 AM AMUSEMENT PARK RIDE MECHANIC NPRG Glucose, P 156(H) 70 - 140 mg/dL 09/29/2023 6:04 AM AMUSEMENT PARK RIDE MECHANIC NPRG Blood (Blood, Venous) 09/29/2023 5:20 AM AMUSEMENT PARK RIDE MECHANIC 09/29/2023 5:44 AM AMUSEMENT PARK RIDE MECHANIC us Abraham Noel M.D. LAB BLOOD ADD-ON Final Resu lt [facility] [address] [place] [address], [facility] NPRG [facility] [address] [place] [address] * (ABNORMAL) Lipid Panel (03/01/2021 7:01 AM CDT) [facility] Cholesterol, Total 145 mg/dL 2020 8:31 AM [...] ADD-ON Final Re sult Performing Organization Address [facility]/ZIP Co de Phone Number [facility] [address] [place] [address], [facility] [address] [place] [address] * (ABNORMAL) Thyroid Function [place] (03/01/2021 7:01 AM CDT) TSH, Sensitive 0.04(L) 0.3 - 4.2 mIU/L 03/01/2021 8:31 AM CDT DTL Blood (Blood, Venous) 03/01/2021 7:01 AM CDT 03/01/2021 7:27 AM CDT Guerrero Chan M.D. LAB BLOOD ADD-ON Final Re sult Performing Organization Address City/[facility]/ZIP Co de Phone Number [facility] [address] [place] [address], [place] [address] from Last 3 Months or Most Recently Relevant to Health Maintenance Additional Health Concerns Infection Onset Date Last Indicated Protective Environment 09/29/2023 Insurance HUMERA PADILLA Care Teams [employer] Relationship Specialty Start Date End Date None Reported, Pcp PCP - General 06/13/24
[2025-05-01 20:03] VITALS: BP 149/87; PULSE 104; RESP 16; TEMP 36.8; O2SAT 95; BMI 34.2
[2025-05-01 20:10] VITALS: RESP 24; TEMP 38.5; O2SAT 94
--- NOTE | 2025-05-01 20:14 | CRLHL7_ITS ---
For Patients: As a result of the Century Cures Act, medical imaging exams and procedure reports are released immediately into your electronic medical record. You may view this report before your referring provider. If you have questions, please contact your health care provider. INDICATION: Cough, shortness of breath. TECHNIQUE: Chest 2 view. COMPARISON: CT chest, abdomen, pelvis 11/12/2024. FINDINGS: Cardiovascular: Heart size and pulmonary vasculature are within normal limits. Lungs and pleural spaces: Questionable minimal retrocardiac consolidation in the medial left lung base. This is not well seen on the lateral view. No sign of pleural effusion. No pneumothorax identified. Bones and soft tissues: Surgical clips upper abdomen. The bones are unremarkable. IMPRESSION: Questionable minimal left retrocardiac consolidation. No other acute findings. Dictated by Sharyn Main MD @ 05/01/2025 8:46:42 PM (Electronically Signed)
--- NOTE | 2025-05-01 20:40 | ED.FEVER ---
HPI - Fever General Time Seen by Provider: 20:40 Date Seen: 05/01/25 Chief Complaint: Fever Stated Complaint: Headache, vomiting, dehydration Time Seen by Provider: 05/01/25 20:40 Source: patient Mode of arrival: ambulatory History of Present Illness HPI Narrative: Hans is a 54-year-old male with a past medical history of pituitary adenoma status post resection who presents the emergency department for evaluation of fever. Patient complains of flu-like symptoms for the past 4 days with headache, rhinorrhea, cough, vomiting, diarrhea. Patient reports grandchildren are sick with similar symptoms, recently diagnosed with pneumonia. Patient reports that 4 days ago he developed runny nose, cough with occasional sputum production, body aches, headache. Patient reports he does get chronic daily headaches however does report worsening headaches day as well as some nausea, vomiting around 7:00 p.m. and loose watery stools/diarrhea throughout the day. Patient states a few days ago he did increase his prednisone. States that he typically takes 5 mg daily and initially triple the dose and then today doubled it. Patient reports in the past he has had been hospital as far as the antibiotics, IV fluids, IV steroids and try to come in early to avoid this. Patient denies any vision changes, focal weakness, paresthesias, chest pain, abdominal pain. Patient reports some shortness of breath, denies any urinary symptoms, no other complaints. Related Data Home Medications ?Medication ?Instructions ?Recorded ?Confirmed aspirin 81 mg tablet,delayed 81 mg PO HS 11/12/24 11/13/24 release lamotrigine 300 mg tablet,extended 300 mg PO HS 11/12/24 11/13/24 release 24 hr prednisone 5 mg tablet 5 mg PO DAILY 11/12/24 11/12/24 diphenhydramine 25 2 tab PO HS 11/13/24 11/13/24 mg-acetaminophen 500 mg tablet (Acetadryl) levetiracetam 750 mg 1,500 mg PO HS 11/13/24 11/13/24 tablet,extended release 24 hr rimegepant 75 mg disintegrating 75 mg PO DIRECTED PRN migraine 11/13/24 11/13/24 tablet (Nurtec ODT) somatropin 10 mg/1.5 mL (6.7 0.2 mg subcut DAILY 11/13/24 11/13/24 mg/mL) subcutaneous pen injector (Norditropin FlexPro) tizanidine 4 mg tablet 4 mg PO HS muscle spasticity 11/13/24 11/13/24 trazodone 150 mg tablet 150 mg PO HS 11/13/24 11/13/24 Previous Rx's ?Medication ?Instructions ?Recorded levothyroxine 137 mcg tablet 137 mcg PO QDAY #90 tabs 09/21/23 testosterone cypionate 200 mg/mL 150 mg (0.75 mL) IM Q2W #6 mL 11/13/23 intramuscular oil amoxicillin 875 mg-potassium 1 tab PO BID 7 days #14 tabs 05/01/25 clavulanate 125 mg tablet azithromycin 250 mg tablet 250 mg PO DAILY 4 days #4 tabs 05/01/25 Allergies Allergy/AdvReac Type Severity Reaction Status Date / Time sumatriptan (From Imitrex) Allergy Severe horribly Verified 11/12/24 18:05 sick azathioprine Allergy Hives Verified 05/01/25 20:09 Review of Systems Narrative Past medical history, past surgical history, medications, allergies, family history, and social history were reviewed with the patient. No additional pertinent items. A medically appropriate review of systems was performed with pertinent positives and negatives noted in HPI, all other systems negative. [facility] Medical History (Updated 05/01/25 @ 23:23 by Jacqueline Blackwell MD) RASHAUN (obstructive sleep apnea) ?G47.33 - Obstructive sleep apnea (adult) (pediatric) (ICD-10) Chronic fatigue ?R53.82 - Chronic fatigue, unspecified (ICD-10) History of hydrocephalus ?Z86.69 - Personal history of other diseases of the nervous system and sense organs (ICD-10) Obesity ?E66.9 - Obesity, unspecified (ICD-10) Visual field loss ?H53.40 - Unspecified visual field defects (ICD-10) Hypogonadism in male ?E29.1 - Testicular hypofunction (ICD-10) Hypothyroidism ?E03.9 - Hypothyroidism, unspecified (ICD-10) Metabolic syndrome ?E88.81 - Metabolic syndrome (ICD-10) Chronic headaches ?R51.9 - Headache, unspecified (ICD-10) ?G89.29 - Other chronic pain (ICD-10) Hx of skin cancer, basal cell ?Z85.828 - Personal history of other malignant neoplasm of skin (ICD-10) Family history of pancreatic cancer ?Z80.0 - Family history of malignant neoplasm of digestive organs (ICD-10) Family history of diabetes mellitus ?Z83.3 - Family history of diabetes mellitus (ICD-10) Family history of prostate cancer ?Z80.42 - Family history of malignant neoplasm of prostate (ICD-10) Hypertension ?I10 - Essential (primary) hypertension (ICD-10) Surgical History (Updated 11/12/24 @ 19:12 by Stella Blackwell MD) S/P ERCP ?Z98.890 - Other specified postprocedural states (ICD-10) 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) S/P rotator cuff surgery ?Z98.890 - Other specified postprocedural states (ICD-10) S/P 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 shunt ?Z98.2 - Presence of cerebrospinal fluid drainage device (ICD-10) S/P cholecystectomy ?Z90.49 - Acquired absence of other specified parts of digestive tract (ICD-10) S/P cataract extraction ?Z98.49 - Cataract extraction status, unspecified eye (ICD-10) Family History Other Diabetes Pancreatic cancer Prostate cancer Social History What is your current living situation?: I presently have a place to live Problems where you live: no known problems Problems where you live details: n/a In the past 12 months, utilities in danger of being shut off: no In past 12 months, lack of transportation kept you from medical appts, meetings, work, or getting things needed for daily living: no In the past 12 mos, have been you worried that your food would run out before you had money to buy more?: never true In the past 12 mos, the food you bought just didn't last and you didn't have money to buy more?: never true Highest level of school completed/degree received: high school graduate Smoking Status: Never smoker Do you use any of these nicotine containing products: None Second hand tobacco smoke exposure: No How often do you have a drink containing alcohol: monthly or less How often do you have six or more drinks on one occasion: Never AUDIT-C Alcohol total score: 1 Non-prescribed substance use: denies use Caffeine: No How often does anyone, including family, friends and others, physically hurt you: never How often does anyone, including family, friends and others, insult or talk down to you: never How often does anyone, including family, friends and others, threaten you with harm: never How often does anyone, including family, friends and others, scream or curse at you: never service: No Exam Narrative Exam Narrative: General: Ill but non toxic appearing, in distress HEENT: Normocephalic, atraumatic, conjunctiva normal. Dry MM Neck: non-tender, supple Cardio: regular rate. regular rhythm Resp: Normal work of breathing, no respiratory distress, lungs clear bilaterally, no wheezing, rhonchi, rales Chest/Back: no visual signs of trauma, no midline tenderness, no CVA tenderness Abdomen: soft, non distension, no tenderness, no peritoneal signs Neuro: alert and fully oriented. CN II-XII grossly intact. Grossly normal strength and sensation in all extremities. MSK: no deformities. Normal range of motion Integumentary/Skin: no rash visualized, normal color Psych: normal affect, normal behavior Const Vital Signs, click to edit/add: Vital Signs - 24 hr 05/01/25 20:03 05/01/25 22:30 05/01/25 22:37 Temperature 98.3 F 98.9 F 98.9 F Pulse Rate [Pulse Oximeter] 104 H 85 Respiratory Rate 16 20 Blood Pressure [Right Upper Arm] 149/87 H 114/86 Pulse Oximetry 95 94 Oxygen Delivery Method Room Air Room Air Course Vital Signs Vital signs: Initial Vital Signs Temperature 98.3 F 05/01/25 20:03 Temperature Source Oral 05/01/25 20:03 Pulse Rate 104 H 05/01/25 20:03 Respiratory Rate 16 05/01/25 20:03 Blood Pressure 149/87 H 05/01/25 20:03 Blood Pressure Mean 107 H 05/01/25 20:03 Blood Pressure Position Sitting 05/01/25 20:03 Pulse Oximetry 95 05/01/25 20:03 Oxygen Delivery Method Room Air 05/01/25 20:03 Vital Signs Temperature 98.3 F 05/01/25 20:03 Pulse Rate 104 H 05/01/25 20:03 Respiratory Rate 16 05/01/25 20:03 Blood Pressure 149/87 H 05/01/25 20:03 Pulse Oximetry 95 05/01/25 20:03 Oxygen Delivery Method Room Air 05/01/25 20:03 Temperature 98.9 F 05/01/25 22:37 Pulse Rate 85 05/01/25 22:30 Respiratory Rate 20 05/01/25 22:30 Blood Pressure 114/86 05/01/25 22:30 Pulse Oximetry 94 05/01/25 22:30 Oxygen Delivery Method Room Air 05/01/25 22:30 Medications Administered Medications: Generic Name Dose Route Start Last Admin Trade Name Freq PRN Reason Stop Dose Admin Azithromycin 500 mg 05/01/25 22:26 05/01/25 22:41 Azithromycin 250 Mg Tablet PO 05/01/25 22:27 500 mg ONCE ONE Administration Ceftriaxone Sodium 1 gm/ 100 mls @ 200 mls/hr 05/01/25 22:26 05/01/25 23:21 Sodium Chloride IVPB 05/01/25 22:27 Infused ONCE ONE Infusion Prednisone 10 mg 05/01/25 22:36 05/01/25 22:41 Prednisone 10 Mg Tablet PO 05/01/25 22:37 10 mg ONCE ONE Administration Discontinued Medications Generic Name Dose Route Start Last Admin Trade Name Frances PRN Reason Stop Dose Admin Acetaminophen 1,000 mg 05/01/25 20:55 05/01/25 21:36 Acetaminophen 500 Mg Tablet PO 05/01/25 20:56 1,000 mg ONCE ONE Administration Sodium Chloride 1,000 mls @ 1,000 mls/hr 05/01/25 21:00 05/01/25 23:21 0.9 % Sodium Chloride 1000 Ml IV 05/01/25 21:59 Infused .Q1H JESSICA Infusion Ketorolac Tromethamine 15 mg 05/01/25 20:55 05/01/25 21:36 Ketorolac 15 Mg/Ml Inj IVP 05/01/25 20:56 15 mg ONCE ONE Administration Metoclopramide HCl 10 mg 05/01/25 20:55 05/01/25 21:36 Metoclopramide Hcl 5 Mg/Ml Inj IVP 05/01/25 20:56 10 mg ONCE ONE Administration MDM - Fever MDM Narrative Medical decision making narrative: Hans is a 54-year-old male with a past medical history of pituitary adenoma status post resection who presents the emergency department for evaluation of fever. Upon arrival patient is ill but nontoxic appearing, febrile 101.3 (temporal temp), 98.3 (oral), slightly tachycardic with heart rate of 104, oxygen 95% on room air, blood pressure 149/87. Differential diagnosis includes but is not limited to sepsis versus bacteremia versus viral illness versus pneumonia versus UTI versus bronchitis versus influenza/COVID among others. Upon arrival patient was treated with 1 L IV fluid bolus, Toradol, Tylenol, Reglan. Comprehensive labs, chest x-ray, urinalysis performed. I personally reviewed interpreted chest x-ray which demonstrates possible minimal left retrocardiac consolidation, no evidence of pleural effusion, no pneumothorax. Negative viral testing - COVID/influenza/RSV. Comprehensive labs remarkable for mild leukocytosis with white blood cell count 11.13, hemoglobin 14.8, potassium 3.5, sodium 138, normal lactic acid 0.9, procalcitonin 0.05. Patient was treated with IV ceftriaxone, azithromycin the emergency department. On re-evaluation patient does report improvement of symptoms, states he would like to discharge home. I did discuss results with patient and family, as well as with hospitalist Dr. Blackwell, given patient's symptoms, history of adrenal insufficiency, did consider an recommend admission. Patient's vital signs improved with heart rate 85, blood pressure 114/86 however orthostatics with tachycardia. Stand 111/78, HR 93 Sit 117/90, HR 99 Stand 121/84, HR 111 Patient is tolerating p.o., offered/recommended admission however patient would like to discharge and not stay in the hospital at this time. At this time plan for discharge with Augmentin, azithromycin, patient instructed to increase his steroids over the next few days. Encourage close outpatient follow-up with his primary care provider in the next 2-3 days and strict return precautions discussed if worsening symptoms over the next 24-48 hours. Patient and spouse understand and agree with the plan. Medical Records Attestation: I reviewed the patient's medical records. Lab Data Attestation: I reviewed the patient's lab results. Labs: Lab Results 05/01/25 05/01/25 Range/Units 20:16 21:20 WBC 11.13 H (4.50-11.00) K/uL RBC 5.25 (4.30-5.90) m/uL Hgb 14.8 (13.5-17.5) gm/dL Hct 45.5 (37.0-53.0) % MCV 87 (80-100) fL MCH 28 (26-34) pg MCHC 33 (32-36) gm/dL RDW Coeff of [place] 14.5 (11.5-15.5) % Plt Count 200 (140-440) K/uL Neut % (Auto) 66.7 (42.0-72.0) % Lymph % (Auto) 22.1 (20-44) % [place] % (Auto) 7.4 (0.0-11.0) % Eos % (Auto) 3.1 (0.0-7.0) % Baso % (Auto) 0.3 (0.0-3.0) % Neut # (Auto) 7.40 H (1.7-7.0) K/uL Lymph # (Auto) 2.50 (0.90-2.90) K/uL [place] # (Auto) 0.80 (0.00-0.90) K/UL Eos # (Auto) 0.30 (0.00-0.50) K/uL Baso # (Auto) 0.00 (0.00-0.30) K/uL Abs Immat Gran (auto) 0.00 (0.00-0.30) K/uL Imm/Tot Granulo (auto) 0.4 % Sodium 138 (135-149) mmol/L Potassium 3.5 L (3.6-5.1) mmol/L Chloride 102 (96-114) mmol/L Carbon Dioxide 30 (20-32) mmol/L Anion Gap 6 L (7-15) mEq/L BUN 14 (7-30) mg/dL Creatinine 1.2 (0.5-1.5) mg/dL Estimated Creat Clear 86.40 Estimated GFR 72 ml/min Glucose 116 H (60-115) mg/dL Lactate 0.9 (0.5-1.9) mmol/L Calcium 8.7 (8.4-10.6) mg/dL Total Bilirubin 1.0 (0.1-1.5) mg/dL AST 27 (12-35) U/L ALT 21 (4-50) U/L Alkaline Phosphatase 38 L (40-150) U/L Total Protein 7.0 (6.0-8.3) g/dL Albumin 4.2 (3.3-5.0) g/dL Procalcitonin 0.05 (<0.50) ng/mL SARS-CoV-2 (PCR) Negative SARS-CoV-2 (Negative) Influenza Type A (PCR) Negative PCR FLU A (Negative) Influenza Type B (PCR) Negative PCR FLU B (Negative) RSV (PCR) Negative PCR RSV (Negative) Imaging Data Chest x-ray: Radiologist's impression: FINDINGS: Cardiovascular: Heart size and pulmonary vasculature are within normal limits. Lungs and pleural spaces: Questionable minimal retrocardiac consolidation in the medial left lung base. This is not well seen on the lateral view. No sign of pleural effusion. No pneumothorax identified. Bones and soft tissues: Surgical clips upper abdomen. The bones are unremarkable. IMPRESSION: Questionable minimal left retrocardiac consolidation. No other acute findings. Discharge Plan Discharge Clinical Impression: Fever, Pneumonia Patient Disposition: Home, Self-Care Condition: Stable Additional Instructions: Please follow-up with your primary care provider in the next 2-3 days please call to schedule appointment. Please rest, drink plenty of water. Please take antibiotics as directed. Please double/triple your dose of steroids for the next few days. Please return to the emergency department if you develop persistent high fever, dizziness, weakness, headache, vomiting/diarrhea, or inability to tolerate oral liquids, or any worsening symptoms. It was a pleasure taking care of you today. Prescriptions: New amoxicillin-pot clavulanate 875-125 mg tablet 1 tab PO BID 7 Days Qty: 14 0RF azithromycin 250 mg tablet 250 mg PO DAILY 4 Days Qty: 4 0RF Rx Instructions: start on day 2 of therapy No Action lamotrigine 300 mg tablet extended release 24hr 300 mg PO HS prednisone 5 mg tablet 5 mg PO DAILY Rx Instructions: Take 1 Tablet (5 mg) by mouth once daily. Double dose in acute illness. aspirin 81 mg tablet,delayed release (DR/EC) 81 mg PO HS Rx Instructions: Take 81 mg by mouth once daily in the evening. Norditropin FlexPro 10 mg/1.5 mL (6.7 mg/mL) pen injector 0.2 mg subcut DAILY levetiracetam 750 mg tablet extended release 24 hr 1,500 mg PO HS Nurtec ODT 75 mg tablet,disintegrating 75 mg PO DIRECTED PRN (Reason: migraine) diphenhydramine-acetaminophen [Acetadryl] 25-500 mg tablet 2 tab PO HS trazodone 150 mg tablet 150 mg PO HS tizanidine 4 mg tablet 4 mg PO HS levothyroxine 137 mcg tablet 137 mcg PO QDAY Qty: 90 3RF testosterone cypionate 200 mg/mL oil 150 mg IM Q2W Qty: 6 5RF Rx Instructions: 0.75 mL Q2WKS Follow Up/Referrals: Salinas Blum MD [Primary Care Provider, Family Practice] Stand Alone Forms: [facility] Info Instructions
[2025-05-01 21:00] LABS: PCR FLU A Negative PCR FLU A (Negative); PCR FLU B Negative PCR FLU B (Negative); PCR RSV Negative PCR RSV (Negative); SARS PCR* Negative SARS-CoV-2 (Negative)
[2025-05-01 21:27] LABS: Lactate* 0.9 mmol/L (0.5-1.9)
--- OUTSIDE RECORDS SUMMARY | 2025-05-01 21:27 | XMS_ITS | Clinical Summary ---
Author Organization [facility] Address [address] , [address] [place] [address] Phone Care Team Providers Care Web Consultant Name Role Phone Celestina CHAPPELL CNP, Didi Baptitse [phone] Conditions or Problems Problem Name Problem Code Onset Date Status Entry Date Provider Comment Standard Description Annotate Spells 45758610 (SNOMED CT) 03/05 Active 03/05 Maribel Maciel MD Stupor Chronic migraine 319487600 (SNOMED CT) 03/05 Active 03/05 Maribel Maciel MD Transformed migraine HEADACHE 76723559 (SNOMED CT) 11/13 Active 11/13 Maribel Maciel MD Headache Transient neurological symptoms 757737142 (SNOMED CT) 11/13 Active 11/13 Maribel Maciel MD Transient neurological symptoms Vision changes 36451200 (SNOMED CT) 08/09 Active 11/11 Umm Rakow Disorder of vision Imported from [facility]: [employer] ( 4 at 08:35:00 AM) Syncope 194284078 (SNOMED CT) 04/25 Active 11/11 Umm Rakow Syncope Imported from [facility]: [facility] ( 4 at 08:35:00 AM) Sepsis 92028455 (SNOMED CT) 09/29 Active 11/11 Umm Rakow Sepsis [facility] ( 4 at 08:35:00 AM) Secondary adrenal insufficienc y 83780399 (SNOMED CT) 09/29 Active 11/11 Umm Rakow Hypocortisolism secondary to another disorder Im[facility] [place] [facility]: [employer] [place] [facility] [employer] [facility] ( 4 at 08:35:00 AM) S/P ventriculope ritoneal shunt Z98.2 (ICD-10-CM ) 09/29 Active 11/11 Umm Rakow Presence of cerebrospinal fluid drainage device Imported from [facility]: [employer] [place] [employer] [facility] [employer] [facility] ( 4 at 08:35:00 AM) S/P craniotomy Z98.890 (ICD-10-CM ) 09/29 Active 11/11 Umm Rakow Other specified postprocedural states Imported from A: [employer] [place] [employer] [facility] [employer] [facility] ( at 08:35:00 AM) Pituitary macroadenoma 173189718 (SNOMED CT) 09/29 Active 11/11 Umm Rakow Pituitary macroadenoma Imported from [facility]: [employer] [facility] ( at 08:35:00 AM) Obstructive hydrocephalu s 637664655 (SNOMED CT) 09/29 Active 11/11 Umm Rakow Obstructive hydrocephalus Imported from [facility]: [employer] [facility] [employer] [facility] ( at 08:35:00 AM) Hyponatremia 08095605 (SNOMED CT) 08/09 Active 11/11 Umm Rakow Hyponatremia Imported from [facility]: [employer] [facility] [employer] [facility] ( at 08:35:00 AM) Hypertension 10579642 (SNOMED CT) 09/29 Active 11/11 Umm Rakow Hypertensive disorder Imported from [facility]: [employer] [place] [employer] [facility] [employer] [facility] ( at 08:35:00 AM) Headache 41027664 (SNOMED CT) 09/29 Active 11/11 Umm Rakow Headache Imported from [facility]: [employer] [place] [employer] [facility] [employer] [facility] ( 4 at 08:35:00 AM) Growth hormone deficiency E23.0 (ICD-10-CM ) 10/07 Active 11/11 Umm Freire [facility]opituitarism [facility] [facility] ( 4 at 08:35:00 AM) Elevated LFTs R79.89 (ICD-10-CM ) 02/23 Active 11/11 Umm Freire Other specified abnormal findings of blood chemistry [facility] [employer] [facility] ( 4 at 08:35:00 AM) Common bile duct calculus 432371318 (SNOMED CT) 02/25 Active 11/11 Umm Freire Common bile duct calculus Imported from [facility]: [employer] [facility] [employer] [facility] ( 4 at 08:35:00 AM) Medications Medication Instructions Start Date Stop Date Generic Name NDC Provider LEVETIRACETAM ER 750 MG [id number] Take 1 tablet by mouth once a day for 7 days, then take 2 tablet by mouth once a day 03/05 levetiracetam [id number] Maribel Maciel MD LEVETIRACETAM ER 750 MG [id number] TAKE 1 TABLET BY MOUTH ONCE A DAY FOR 7 DAYS, THEN TAKE 2 TABLET BY MOUTH ONCE A DAY 10/07 levetiracetam 81474226321 Maribel Maciel MD AZATHIOPRINE 50 MG TABS TAKE 2 TABLETS BY MOUTH DAILY azathioprine 98569275332 Maribel Maciel MD LAMOTRIGINE ER 50 MG [id number] Take 3 tablet by mouth once a day for 7 days, then take 4 tablet by mouth once a day for 7 days, then take 5 tablet by mouth once a day for 7 days 08/20 lamotrigine 53380201359 Maribel Maciel MD LAMOTRIGINE ER 25 MG [id number]-WJR Take 1 tablet by mouth once a day for 14 days, then take 2 tablet by mouth once a day for 14 days, then take 4 tablet by mouth once a day 08/20 lamotrigine 86750440386 Maribel Maciel MD LAMOTRIGINE ER 300 MG [id number]-ZSD Take 1 tablet by mouth once a day 08/20 lamotrigine 62765810136 Maribel Maciel MD RIZATRIPTAN BENZOATE 10 MG TABS Take 1 tab po at the onset of migraine. Ok to repeat in 2 hours. Do not exceed 2 tabs in 24 hours. Max 9 tablets/month 08/23 rizatriptan 82576764130 Maribel Maciel MD NURTEC 75 MG TBDP Take 1 tablet by mouth as directed Take 1 tab at onset of migraine. Do not take more than 1 tablet in a 24-hour period. 08/11 rimegepant 40226006039 Maribel Maciel MD WEGOVY 0.5 MG/0.5ML SOAJ INJECT 0.5 MG SUBCUTANEOUS ONCE WEEKLY. THEN INCREASE TO 1 MG WEEKLY AFTER 4 WEEKS. 06/11 semaglutide (weight loss) 84385746025 Maribel Maciel MD HYDROXYCHLOROQUINE SULFATE 200 MG TABS 06/11 hydroxychloroquine 32088921160 Maribel Maciel MD ENBREL SURECLICK 50 MG/ML SOAJ etanercept 25999656676 Maribel WOODRUFFGOVY 2.4 MG/0.75ML SOAJ semaglutide (weight loss) 32250572204 Maribel Maciel MD PROPRANOLOL HCL ER 60 MG [id number]-UHQ TAKE 1 CAPSULE BY MOUTH EVERY DAY 11/22 propranolol 33587607959 Maribel Maciel MD PROPRANOLOL HCL ER 60 MG [id number]-DHS TAKE 1 CAPSULE BY MOUTH EVERY DAY 04/21 propranolol 25072446746 Maribel Maciel MD EMGALITY 120 MG/ML SOAJ Loading dose of 2 injections the first month 03/05 galcanezumab-[facility] 86056886347 Maribel Maciel MD EMGALITY 120 MG/ML SOAJ Inject 1 pen injector subcutaneously once a month as directed (after first months loading dose) 03/05 galcanezumab-[facility] 19509532973 Maribel Maciel MD AJOVY 225 MG/1.5ML SOAJ 1 sq q 28 days 03/26 fremanezumab-[facility] [id number] Maribel Maciel MD EMGALITY 120 MG/ML SOAJ Inject 1 pen injector subcutaneously once a month as directed (after first months loading dose) 03/05 galcanezumab-[facility] 61247146946 Maribel Maciel MD EMGALITY 120 MG/ML SOAJ Loading dose of 2 injections the first month 03/05 galcanezumab-[facility] 83539115818 Maribel Maciel MD LEVETIRACETAM ER 750 MG [id number] Take 1 tablet by mouth once a day for 7 days, then take 2 tablet by mouth once a day 03/05 levetiracetam 99332877248 Maribel Macile MD PROCHLORPERAZINE MALEATE 10 MG TABS 03/05 prochlorperazine maleate 53204325637 Maribel Maciel MD PHENTERMINE HCL 37.5 MG CAPS TAKE 1 CAPSULE BY MOUTH DAILY; ADMINISTER 30 MINUTES BEFORE OR 1-2 HOURS AFTER BREAKFAST 03/05 phentermine 67919030529 Maribel Maciel MD NORDITROPIN FLEXPRO 10 MG/1.5ML SOPN somatropin 80234401842 Maribel Maciel MD WEGOVY 0.5 MG/0.5ML SOAJ INJECT 0.5 MG SUBCUTANEOUS ONCE WEEKLY. THEN INCREASE TO 1 MG WEEKLY AFTER 4 WEEKS. 06/11 semaglutide (weight loss) 73727109111 Maribel Maciel MD TOPIRAMATE 50 MG TABS Take 1 tablet by mouth once a day x 1 week; then take 1 tablet twice a day x 1 week; then take 2 tablets in the morning and take 1 tablet in the evening x 1 week; then take 2 tablets twice a day 11/13 topiramate 92904399018 Maribel Maciel MD PROPRANOLOL HCL ER 60 MG [id number]-WYX TAKE 1 CAPSULE BY MOUTH EVERY DAY 11/22 propranolol 42225121710 Maribel Maciel MD TOPIRAMATE 50 MG TABS Take 1 tablet by mouth once a day x 1 week; then take 1 tablet twice a day x 1 week; then take 2 tablets in the morning and take 1 tablet in the evening x 1 week; then take 2 tablets twice a day 11/13 topiramate 49207459853 Maribel Maciel MD TOPIRAMATE 50 MG TABS 1 po qday x 1 week, 1 po BID x 1 week then 2 po qam x 1 week then 2 po BID 11/13 topiramate 00417019083 Maribel Maciel MD METHOTREXATE SODIUM 2.5 MG TABS 11/13 methotrexate sodium 23234781132 Maribel Maciel MD HYDROCORTISONE 10 MG TABS hydrocortisone 99693161758 Maribel Maciel MD TESTOSTERONE CYPIONATE 200 MG/ML SOLN INJECT 150 MG (0.75 ML) INTRAMUSCULARLY EVERY 2 WEEKS testosterone cypionate 17077325288 Maribel Maciel MD PHENTERMINE HCL 37.5 MG CAPS TAKE 1 CAPSULE BY MOUTH DAILY; ADMINISTER 30 MINUTES BEFORE OR 1-2 HOURS AFTER BREAKFAST 03/05 phentermine 48519558916 Maribel Maciel MD TRAZODONE HCL 150 MG TABS trazodone 34738414386 Maribel Maciel MD HYDROXYCHLOROQUINE SULFATE 200 MG TABS 02/13 hydroxychloroquine 21283083306 Maribel Maciel MD METHOTREXATE SODIUM 2.5 MG TABS 11/13 methotrexate sodium 15328518828 Maribel Maciel MD TIZANIDINE HCL 4 MG TABS tizanidine 72174278973 Maribel Maciel MD FOLIC ACID 1 MG TABS TAKE 1 TABLET DAILY folic acid 85896201196 Maribel Maciel MD LEVOTHYROXINE SODIUM 137 MCG TABS levothyroxine 35744545375 Azeem Maciel MD PROCHLORPERAZINE MALEATE 10 MG TABS 02/13 prochlorperazine maleate 62344315415 Maribel Maciel MD Medications Administered No information [...] Rec X SMOK STATUS 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 Procedure: Occipital Nerve B lock [...] Detail Appointment 09:30 AM Remigio redmond MD, [address], [facility] [address], [place], [address], Pending order Follow up Pending order EEG [...] Follow up telemedicine 06/11 ORDERS Patient Instructions 41786/28/03/08 EEG Ambulatory (74hr) CPT-19894 EEG Setup CPT-15420 Video EEG 26hrs 1min-36hrs () 4 CPT-89754 Video EEG 26hrs 1min-36hrs (Tech) CPT-92696 Video EEG 26hrs 1min-36hrs ()* CPT-92909 Video EEG 26hrs 1min-36hrs (Tech)* 09/09 17697/ EEG 26hr (all ages) 202 11/14/05 ORDERS Follow up telemedicine 03/05 CPT-G2211 Complex e/m visit add on 202 11/10/30 ORDERS Follow up ORDERS Patient Instructions CPT-82487 EEG (AWAKE/DROWSY) (END) 202 11/08/00 [address] [place] [address] EEG (40min) ORDERS Patient Instructions 62170/40560 Occipital Nerve Block Injection 0 CPT-72962 Occipital nerve bloc k (Greater ONB) unilateral CPT-87196 Lesser ONB/3rd ONB/Auricular/Preauricular,unilateral CPT-J1100 Dexamethasone -- 10 mg 11/13 [id number] Documentation of current medicatio ns Vital Signs [...]
[2025-05-01 21:31] LABS: Hematocrit* 45.5 % (37.0-53.0); Hemoglobin* 14.8 gm/dL (13.5-17.5); Immature Granulocytes Pct Auto 0.4 %; Mean Corpuscular HGB Conc 33 gm/dL (32-36); Mean Corpuscular Hemoglobin 28 pg (26-34); Mean Corpuscular Volume 87 fL (80-100); RDW Coefficient of Variation % 14.5 % (11.5-15.5); Red Blood Count* 5.25 m/uL (4.30-5.90); White Blood Count* 11.13 K/uL (4.50-11.00)
[2025-05-01] MEDS: ACETAMINOPHEN 500 MG TABLET 1000 MG PO (21:36)
[2025-05-01] MEDS: METOCLOPRAMIDE HCL 5 MG/ML INJ 10 MG IVP (21:36)
[2025-05-01 21:37] LABS: Immature Granulocytes Abs Auto 0.00 K/uL (0.00-0.30); Lymphocytes Absolute Auto 2.50 K/uL (0.90-2.90); Slide Review Reflex No
[2025-05-01 21:44] LABS: Chloride* 102 mmol/L (96-114)
[2025-05-01 21:45] LABS: Albumin* 4.2 g/dL (3.3-5.0); Potassium* 3.5 mmol/L (3.6-5.1); Sodium* 138 mmol/L (135-149)
[2025-05-01 21:47] LABS: Blood Urea Nitrogen* 14 mg/dL (7-30); Creatinine* 1.2 mg/dL (0.5-1.5); Est. Creatinine Clearance* 86.40; Estimated Glomerular Filt Rate 72 ml/min
[2025-05-01 21:48] LABS: Alanine Aminotransferase* 21 U/L (4-50); Alkaline Phosphatase* 38 U/L (40-150); Anion Gap 6 mEq/L (7-15); Aspartate Amino Transferase* 27 U/L (12-35); Bilirubin Total* 1.0 mg/dL (0.1-1.5); Calcium* 8.7 mg/dL (8.4-10.6); Carbon Dioxide* 30 mmol/L (20-32); Glucose* 116 mg/dL (60-115); Total Protein* 7.0 g/dL (6.0-8.3)
[2025-05-01 22:05] LABS: Procalcitonin* 0.05 ng/mL (<0.50)
[2025-05-01 22:30] VITALS: BP 114/86; PULSE 85; RESP 20; TEMP 37.2; O2SAT 94
[2025-05-01 22:37] VITALS: TEMP 37.2
[2025-05-01] MEDS: cefTRIAXone 1 GM in 0.9 % SODIUM CHLORIDE Mini-bag 100 ML IVPB (22:40)
[2025-05-01] MEDS: AZITHROMYCIN 250 MG TABLET 500 MG PO (22:41)
[2025-05-01 22:56] VITALS: BP 111/78; BP 117/90; BP 121/84; PULSE 111; PULSE 94; PULSE 99
[2025-05-01 23:00] VITALS: TEMP 37.7
== END 2025-05-01 23:38 | disposition home or self-care (01) ==
PROVIDERS: Emergency Provider Emergency Medicine; PCP Family Medicine
DX: J18.9 Pneumonia, unspecified organism (principal); R50.9 Fever, unspecified
CPT/HCPCS: 36415; 71046; 80053; 81001; 83605; 84145; 85025; 87040; 87631; 99284; 99285; A9270; J0696; J1885; J2765; J7030; J7512